=== PATIENT | female | born 1965 | race Caucasian/White ===

== ENCOUNTER → 2016-06-13 | Outpatient (CLI) | payer MEDICAID ==
--- NOTE | 2016-06-13 12:12 | XR ---
EXAMINATION TYPE: XR KUB DATE OF EXAM: 06/13/2016 11:04 AM HISTORY: Pain Comparison: 10/18/2015 Single KUB is submitted for interpretation. Findings: Right renal calculi: Stable small calculi upper pole right kidney totaling approximately 3 in number and measuring up to 3.8 mm. Right ureteral calculi: None Visualized. Left renal calculi: Lower pole calculi are again noted measuring up to 3 mm. Left ureteral calculi: None Visualized. Pelvic calcifications: Stable phleboliths Bowel gas pattern is unremarkable. No free air. No mass effects. IMPRESSION: 1. Stable nephrolithiasis suggested.
== END | disposition home or self-care (01) ==
LOC: RADXRMAIN 10:45
PROVIDERS: ATTEND Urology
DX: N20.0 Calculus of kidney (principal)
CPT/HCPCS: 36415; 74000; 82306

== ENCOUNTER 2016-07-02 14:20 | Emergency (ER) | payer MEDICAID ==
[2016-07-02] MEDS ORDERED: ONDANSETRON 4 MG/2 ML VIAL IVP STA (15:11)
[2016-07-02] MEDS ORDERED: HYDROmorphone 1 MG/ML 1 ML SYRINGE IVP STA (15:11)
[2016-07-02] MEDS ORDERED: KETOROLAC 30 MG/ML 1 ML VIAL IVP STA (15:11)
[2016-07-02] MEDS ORDERED: SODIUM CHLORIDE 0.9% 1,000 ML IV STA ×2 (15:11)
--- NOTE | 2016-07-02 15:12 | ED ---
General Adult HPI - General Chief complaint: Abdominal Pain Stated complaint: kidney Stones Time Seen by Provider: 07/02/16 14:47 Source: patient, RN notes reviewed, old records reviewed Mode of arrival: EMS Limitations: no limitations - History of Present Illness Initial comments: This is a 42-year-old female the ER for evaluation. The patient presents here for evaluation of bowel pain, right-sided flank pain. Right-sided flank pain radiating to groin. Mild dysuria. Mild blood in the urine. - Related Data Home Medications Medication Instructions Recorded Confirmed Sertraline [Zoloft] 100 mg PO HS 06/18/13 07/02/16 amLODIPine [Norvasc] 5 mg PO HS 06/18/13 07/02/16 Levothyroxine Sodium [Synthroid] 100 mcg PO HS 03/24/15 07/02/16 Potassium Citrate [Potassium 10 meq PO BID 07/02/16 07/02/16 Citrate ER] traMADol HCL [Ultram] 100 mg PO Q6HR PRN 07/02/16 07/02/16 traMADol HCl [Ultram] 50 mg PO Q6H PRN 07/02/16 07/02/16 Previous Rx's Medication Instructions Recorded Simvastatin [Zocor] 40 mg PO HS 90 Days 07/01/13 HYDROcodone/APAP 5-325MG [[place] 1 tab PO Q6HR PRN #30 tab 07/02/16 5-325] Ondansetron [Zofran] 4 mg PO Q8HR PRN #30 tab 07/02/16 Tamsulosin [Flomax] 0.4 mg PO DAILY #30 cap 07/02/16 diphenhydrAMINE [Benadryl] 50 mg PO BID #60 capsule 07/02/16 Allergies Allergy/AdvReac Type Severity Reaction Status Date / Time ciprofloxacin [From Cipro] AdvReac Nausea Verified 07/02/16 16:27 Review of Systems ROS Statement: Those systems with pertinent positive or pertinent negative responses have been documented in the HPI. ROS Other: All systems not noted in ROS Statement are negative. Past Medical History Past Medical History: Hyperlipidemia, Hypertension, Thyroid Disorder Additional Past Medical History / Comment(s): Recurrent Urolithiasis, Kidney Infection History of Any Multi-Drug Resistant Organisms: None Reported Past Surgical History: Uterine Ablation Additional Past Surgical History / Comment(s): Right ESWL in 2011, Left Percutaneous Nephrolithotomy in May 2013, Left Ureteroscopy with Holmium Laser Lithotripsy in June 2013, NOVOSURE Past Anesthesia/Blood Transfusion Reactions: No Reported Reaction Past Psychological History: Depression Additional Psychological History / Comment(s): ON RX Smoking Status: Never smoker Past Alcohol Use History: None Reported Past Drug Use History: None Reported - Past Family History Father Family Medical History: Coronary Artery Disease (CAD) Mother Additional Family Medical History / Comment(s): AORTIC ANEURYSM General Exam Limitations: no limitations General appearance: alert, in no apparent distress, anxious Head exam: Present: atraumatic, normocephalic, normal inspection Eye exam: Present: normal appearance, PERRL, EOMI. Absent: scleral icterus, conjunctival injection, periorbital swelling ENT exam: Present: normal exam, mucous membranes moist Neck exam: Present: normal inspection. Absent: tenderness, meningismus, lymphadenopathy Respiratory exam: Present: normal lung sounds bilaterally. Absent: respiratory distress, wheezes, rales, rhonchi, stridor Cardiovascular Exam: Present: regular rate, normal rhythm, normal heart sounds. Absent: systolic murmur, diastolic murmur, rubs, gallop, clicks GI/Abdominal exam: Present: soft, normal bowel sounds. Absent: distended, tenderness, guarding, rebound, rigid Extremities exam: Present: normal inspection, full ROM, normal capillary refill. Absent: tenderness, pedal edema, joint swelling, calf tenderness Back exam: Present: normal inspection Neurological exam: Present: alert, oriented X3, CN II-XII intact Psychiatric exam: Present: normal affect, normal mood Skin exam: Present: warm, dry, intact, normal color. Absent: rash Course Vital Signs 07/02/16 07/02/16 14:51 16:23 Temperature 97.4 F L Pulse Rate 61 59 L Respiratory 18 18 Rate Blood Pressure 170/100 154/104 O2 Sat by Pulse 95 99 Oximetry - Reevaluation(s) Reevaluation #1: 07/02/16 16:49 At this point patient has achieved pain control Medical Decision Making - Medical Decision Making 42 female ER for evaluation of dobby, severe sudden onset of bilateral abdominal pain rating to back, drizzly prior kidney stones, patient does have evidence of kidney stones and urine and and ultrasound, will spare CAT scan at this time, any function as well and patient will follow-up with urology with pain control - Lab Data Result diagrams: 07/02/16 15:07/02/16 15:09 Lab Results 07/02/16 07/02/16 07/02/16 Range/Units 15:09 15: 15: WBC 8.6 (3.8-10.6) k/uL RBC 4.28 (3.80-5.40) m/uL Hgb 12.9 (11.4-16.0) gm/dL Hct 37.8 (34.0-46.0) % MCV 88.4 (80.0-100.0) fL MCH 30.1 (25.0-35.0) pg MCHC 34.0 (31.0-37.0) g/dL RDW 13.3 (11.5-15.5) % Plt Count 194 (150-450) k/uL Neutrophils % 63 % Lymphocytes % 26 % Monocytes % 6 % Eosinophils % 3 % Basophils % 1 % Neutrophils # 5.4 (1.3-7.7) k/uL Lymphocytes # 2.2 (1.0-4.8) k/uL Monocytes # 0.5 (0-1.0) k/uL Eosinophils # 0.3 (0-0.7) k/uL Basophils # 0.1 (0-0.2) k/uL Sodium 138 (137-145) mmol/L Potassium 3.6 (3.5-5.1) mmol/L Chloride 100 (98-107) mmol/L Carbon Dioxide 28 (22-30) mmol/L Anion Gap 10 mmol/L BUN 14 (7-17) mg/dL Creatinine 0.83 (0.52-1.04) mg/dL Est GFR (MDRD) Af Amer >60 (>60 ml/min/1.73 sqM) Est GFR (MDRD) Non-Af >60 (>60 ml/min/1.73 sqM) Glucose 106 H (74-99) mg/dL Calcium 9.3 (8.4-10.2) mg/dL Total Bilirubin 0.6 (0.2-1.3) mg/dL AST 17 (14-36) U/L ALT 18 (9-52) U/L Alkaline Phosphatase 57 (38-126) U/L Total Creatine Kinase 53 (30-135) U/L CK-MB (CK-2) 0.8 (0.0-2.4) ng/mL CK-MB (CK-2) Rel Index 1.5 Total Protein 7.5 (6.3-8.2) g/dL Albumin 4.4 (3.5-5.0) g/dL Amylase 77 (30-110) U/L Lipase 77 (23-300) U/L Urine Color Urine Appearance (Clear) Urine pH (5.0-8.0) Ur Specific Collins (1.001-1.035) Urine Protein (Negative) Urine Glucose (UA) (Negative) Urine Ketones (Negative) Urine Blood (Negative) Urine Nitrite (Negative) Urine Bilirubin (Negative) Urine Urobilinogen (<2.0) mg/dL Ur Leukocyte Esterase (Negative) Urine RBC (0-5) /hpf Urine WBC (0-5) /hpf Ur Squamous Epith Cells (0-4) /hpf Urine Bacteria (None) /hpf Urine Mucus (None) /hpf 07/02/16 Range/Units 15:09 WBC (3.8-10.6) k/uL RBC (3.80-5.40) m/uL Hgb (11.4-16.0) gm/dL Hct (34.0-46.0) % MCV (80.0-100.0) fL MCH (25.0-35.0) pg MCHC (31.0-37.0) g/dL RDW (11.5-15.5) % Plt Count (150-450) k/uL Neutrophils % % Lymphocytes % % Monocytes % % Eosinophils % % Basophils % % Neutrophils # (1.3-7.7) k/uL Lymphocytes # (1.0-4.8) k/uL Monocytes # (0-1.0) k/uL Eosinophils # (0-0.7) k/uL Basophils # (0-0.2) k/uL Sodium (137-145) mmol/L Potassium (3.5-5.1) mmol/L Chloride (98-107) mmol/L Carbon Dioxide (22-30) mmol/L Anion Gap mmol/L BUN (7-17) mg/dL Creatinine (0.52-1.04) mg/dL Est GFR (MDRD) Af Amer (>60 ml/min/1.73 sqM) Est GFR (MDRD) Non-Af (>60 ml/min/1.73 sqM) Glucose (74-99) mg/dL Calcium (8.4-10.2) mg/dL Total Bilirubin (0.2-1.3) mg/dL AST (14-36) U/L ALT (9-52) U/L Alkaline Phosphatase (38-126) U/L Total Creatine Kinase (30-135) U/L CK-MB (CK-2) (0.0-2.4) ng/mL CK-MB (CK-2) Rel Index Total Protein (6.3-8.2) g/dL Albumin (3.5-5.0) g/dL Amylase (30-110) U/L Lipase (23-300) U/L Urine Color Yellow Urine Appearance Cloudy H (Clear) Urine pH 6.0 (5.0-8.0) Ur Specific Collins 1.007 (1.001-1.035) Urine Protein 1+ H (Negative) Urine Glucose (UA) Negative (Negative) Urine Ketones Negative (Negative) Urine Blood Moderate H (Negative) Urine Nitrite Negative (Negative) Urine Bilirubin Negative (Negative) Urine Urobilinogen <2.0 (<2.0) mg/dL Ur Leukocyte Esterase Large H (Negative) Urine RBC 14 H (0-5) /hpf Urine WBC 24 H (0-5) /hpf Ur Squamous Epith Cells 4 (0-4) /hpf Urine Bacteria Rare H (None) /hpf Urine Mucus Occasional H (None) /hpf - Radiology Data Radiology results: report reviewed (Ultrasound of kidneys renal and bladder is positive for mild hydro-bilateral), image reviewed Disposition Clinical Impression: Ureteral stone, Right kidney stone Disposition: HOME SELF-CARE Condition: Good Instructions: Kidney Stones (ED) Prescriptions: HYDROcodone/APAP 5-325MG [Ray[place] 5-325] 1 tab PO Q6HR PRN #30 tab PRN Reason: Pain Ondansetron [Zofran] 4 mg PO Q8HR PRN #30 tab PRN Reason: Nausea Tamsulosin [Flomax] 0.4 mg PO DAILY #30 cap diphenhydrAMINE [Benadryl] 50 mg PO BID #60 capsule Referrals: Alin Swift Jr, DO [Primary Care Provider] - 1-2 days
[2016-07-02 15:19] LABS: Basophils # (A) 0.1 k/uL (0-0.2); Basophils % (A) 1 %; CH 31.1; CHCM 35.4; Eosinophils # (A) 0.3 k/uL (0-0.7); Eosinophils % (A) 3 %; HCT 37.8 % (34.0-46.0); HDW 2.82; HGB 12.9 gm/dL (11.4-16.0); Luc # (Auto) 0.17; Luc % (Auto) 2; Lymphocytes # (A) 2.2 k/uL (1.0-4.8); Lymphocytes % (A) 26 %; MCH 30.1 pg (25.0-35.0); MCV 88.4 fL (80.0-100.0); Mean Platelet Volume 9.1; Monocytes # (A) 0.5 k/uL (0-1.0); Monocytes % (A) 6 %; Neutrophils # (A) 5.4 k/uL (1.3-7.7); Neutrophils % (A) 63 %; RBC 4.28 m/uL (3.80-5.40); RDW 13.3 % (11.5-15.5); WBC 8.6 k/uL (3.8-10.6); WBC (Perox) 8.03
[2016-07-02 15:26] LABS: Appearance,Urine Cloudy (Clear); Bacteria,Urine Rare /hpf; Bilirubin,Urine Negative (Negative); Glucose,Urine (UA) Negative (Negative); Ketones,Urine Negative (Negative); Leukocyte Esterase,Urine Large (Negative); Mucus,Urine Occasional /hpf; Nitrite,Urine Negative (Negative); Particle Count 3403; Protein,Urine 1+ (Negative); RBC,Urine 14 /hpf (0-5); Specific Gravity,Urine 1.007 (1.001-1.035); Squamous Epithelial Cell,Urine 4 /hpf (0-4); UA Billing (MACRO vs. MICRO) MICRO; Urobilinogen,Urine <2.0 mg/dL (<2.0); WBC,Urine 24 /hpf (0-5)
[2016-07-02 15:31] LABS: ALT 18 U/L (9-52); AST 17 U/L (14-36); Alkaline Phosphatase 57 U/L (38-126); Amylase 77 U/L (30-110); Anion Gap 10 mmol/L; Blood Urea Nitrogen 14 mg/dL (7-17); Calcium 9.3 mg/dL (8.4-10.2); Carbon Dioxide 28 mmol/L (22-30); Chloride 100 mmol/L (98-107); Glucose 106 mg/dL (74-99); Non-African American GFR(MDRD) >60 (>60 ml/min/1.73 sqM); Potassium 3.6 mmol/L (3.5-5.1); Sodium 138 mmol/L (137-145); Total Bilirubin 0.6 mg/dL (0.2-1.3); Total Protein 7.5 g/dL (6.3-8.2)
[2016-07-02 15:45] LABS: Creatine Kinase MB 0.8 ng/mL (0.0-2.4)
[2016-07-02] MEDS ORDERED: cefTRIAXone 2,000 MG in SODIUM CHLORIDE 0.9% 100 ML IVPB STA (15:53)
--- NOTE | 2016-07-02 16:24 | US ---
EXAMINATION TYPE: US kidneys/renal and bladder DATE OF EXAM: 07/02/2016 3:48 PM COMPARISON: CT abdomen and pelvis March 23, 2015. Prior renal ultrasound July 09, 2013 CLINICAL HISTORY: Pain, history of kidney stones. EXAM MEASUREMENTS: Right Kidney: 14.6 x 6. 7 x 5.9 cm Left Kidney: 13.3 x 6.5 x 6.1 cm Right Kidney: mild hydro, stone seen upper pole measuring 0.9 x 0.7 x 0.7 Left Kidney: mild hydro, cluster of possible stones seen in lower pole largest measuring 0.6 x 0.4 x 0.6cm Bladder: not distended, not well seen Fairly moderate right-sided pyelocaliectasis is seen on images saved. Similar moderate to borderline severe left-sided pyelocaliectasis is seen. Nonspecific 6 mm nonshadowing hyperechoic focus left kidn ey likely reflects renal calculus. IMPRESSION: Moderate bilateral hydronephrosis, consider obstructing bilateral ureter calculi in patie nt with history of kidney stones. Clinical correlation advised.
[2016-07-02] MEDS ORDERED: HYDROmorphone 2 MG/ML 1 ML SYRINGE IVP STA (16:30)
[2016-07-02 17:36] VITALS: BP 156/91; PULSE 69; RESP 16; TEMP 98.1
== END 2016-07-02 17:35 | disposition home or self-care (01) ==
LOC: EC 14:20
DX: N20.2 Calculus of kidney with calculus of ureter (principal); I10 Essential (primary) hypertension; E07.9 Disorder of thyroid, unspecified; F32.9 Major depressive disorder, single episode, unspecified; Z79.899 Other long term (current) drug therapy; Z88.1 Allergy status to other antibiotic agents; Z98.890 Other specified postprocedural states
CPT/HCPCS: 36415; 80053; 82150; 82550; 82553; 83690; 85025; 81001; 87086; 76770; 99285; 96365; 96375 ×3; 96376; 96361; J1170 ×2; J2405; J0696; J1885

== ENCOUNTER → 2016-11-05 | Outpatient (CLI) | payer MEDICAID ==
--- NOTE | 2016-11-06 08:26 | XR ---
EXAMINATION TYPE: XR KUB DATE OF EXAM: 11/05/2016 COMPARISON: 06/13/2016 HISTORY: Follow-up stones TECHNIQUE: One view abdominal series FINDINGS: The osseous structures are intact. The bowel gas pattern is nonspecific. Within the pelvis the calcifications appear to be stable. Left kidney: There is a 3 mm mid pole left kidney calcification which is stable. Punctate 1 mm lower pole calcification not excluded. Right kidney: Obscured by overlying bowel gas. IMPRESSION: 1. Nonspecific abdomen. 2. Stable left nephrolithiasis. 3. Limited assessment of the right kidney.
== END ==
LOC: RADXRMAIN 16:25
PROVIDERS: ATTEND Urology
DX: N20.0 Calculus of kidney (principal)
CPT/HCPCS: 74000

== ENCOUNTER → 2017-04-24 | Outpatient (CLI) | payer MEDICAID ==
--- NOTE | 2017-04-24 16:48 | XR ---
Abdomen HISTORY: Kidney stones, N 20 Frontal view of the abdomen submitted and correlated to prior exam 11/05/2016, CT abdomen pelvis 12/04 Multiple vascular calcifications are noted within the pelvis as on prior, there is been interval pass age of some calcifications, difficult to exclude distal ureteral calculus on the left and possibly ri ght. Bowel gas may obscure detail in the abdomen, there is no evident pneumoperitoneum or bowel obstr uction. Spinal curvature is present. Lung bases are not well visualized. IMPRESSION: Nonobstructive bowel gas pattern, difficult to exclude distal ureteral calculus, follow-u p as indicated.
== END | disposition home or self-care (01) ==
LOC: RADXRMAIN 14:57
PROVIDERS: ATTEND Urology
DX: N20.0 Calculus of kidney (principal)
CPT/HCPCS: 74018

== ENCOUNTER → 2017-04-24 | Outpatient (CLI) | payer MEDICAID | END | disposition home or self-care (01) | LOC: LABWHC1 15:21 | PROVIDERS: ATTEND Family Medicine | DX: N23 Unspecified renal colic (principal) | CPT/HCPCS: 36415; 82330; 83970 ==

== ENCOUNTER → 2017-04-26 | Outpatient (CLI) | payer MEDICAID ==
--- NOTE | 2017-04-26 08:23 | CT ---
EXAMINATION TYPE: CT abdomen pelvis wo con DATE OF EXAM: 04/26/2017 COMPARISON: 12/04/2016 HISTORY: Renal stone CT DLP: 933 mGycm Automated exposure control for dose reduction was used. TECHNIQUE: Helical acquisition of images was performed from the lung bases through the pelvis. FINDINGS: LUNG BASES: Tiny pericardial effusion. Lungs are clear. LIVER/GB: No significant abnormality is appreciated. PANCREAS: No significant abnormality is seen. SPLEEN: No significant abnormality is seen. ADRENALS: No significant abnormality is seen. KIDNEYS: There are approximately 9 calcifications within the right kidney all measuring less than 5 m m. There is a distal right ureteral obstruction resulting in mild right hydronephrosis with 3 calculi noted proximal to the UVJ with the largest measuring 3 mm. There is no evidence of hydronephrosis on the left there are 3 calcifications all measuring less than 5 mm. ADENOPATHY: None visualized URINARY BLADDER: No significant abnormality is seen. OSSEOUS STRUCTURES: No significant abnormality is seen. BOWEL: Bowel limited by extensive retained fecal debris with nonspecific gas pattern and no evidence of obstruction. OTHER: Aorta of normal caliber. IMPRESSION: BILATERAL NEPHROLITHIASIS WITH MILD RIGHT-SIDED HYDRONEPHROSIS SECONDARY TO 3 DISTAL RIGHT URETERAL C ALCULI RESULTING IN OBSTRUCTION, ALL MEASURING 3 MM OR LESS.
== END | disposition home or self-care (01) ==
LOC: RADCTMAIN 07:34
DX: N13.2 Hydronephrosis with renal and ureteral calculous obstruction (principal)
CPT/HCPCS: 74176

== ENCOUNTER → 2017-09-18 | Outpatient (CLI) | payer MEDICAID ==
--- NOTE | 2017-09-18 12:36 | XR ---
EXAMINATION TYPE: XR chest 2V DATE OF EXAM: 09/18/2017 COMPARISON: 07/07/2013 HISTORY: Tuberculosis screening TECHNIQUE: Frontal and lateral views of the chest are obtained. FINDINGS: There is no focal air space opacity, pleural effusion, or pneumothorax seen. The cardiac silhouette size is within normal limits. The osseous structures are intact. No cavitary mass is adelaida ntified. No focal air space disease is seen. Very mild degenerative changes of the spine are noted. IMPRESSION: No acute cardiopulmonary process. No radiographic sequela of tuberculosis.
== END | disposition home or self-care (01) ==
LOC: RADXRMAIN 11:17
PROVIDERS: ATTEND Family Medicine
DX: Z20.1 Contact with and (suspected) exposure to tuberculosis (principal)
CPT/HCPCS: 71046

== ENCOUNTER → 2018-04-28 | Outpatient (CLI) | payer MEDICAID ==
--- NOTE | 2018-04-28 12:14 | CT ---
EXAMINATION TYPE: CT abdomen pelvis wo con DATE OF EXAM: 04/28/2018 COMPARISON: 04/26/2017 HISTORY: right sided flank pain with history of stones CT DLP: 817 mGycm Examination of the solid and hollow viscera is limited given the lack of contrast. FINDINGS: LUNG BASES: No evidence for nodule. No evidence for infiltrate. LIVER/GB: The gallbladder is unremarkable. No space-occupying hepatic lesion. PANCREAS: No pancreatic mass identified. No inflammatory process seen. SPLEEN: No evidence for splenomegaly. No intrasplenic lesions seen. ADRENALS: No adrenal nodules identified. No evidence for thickening. KIDNEYS: No evidence for renal mass. Bilateral nonobstructing nephrolithiasis. No hydronephrosis. BOWEL: Appendix has a normal appearance. No evidence of bowel obstruction. No inflammatory process. Lymph nodes: No evidence for adenopathy greater than 1 cm. Abdominal aorta: Atheromatous changes seen. No evidence for aneurysm. Genital organs: No significant abnormality. Other: No significant abnormality. IMPRESSION: Bilateral nonobstructing nephrolithiasis.
== END ==
LOC: RADCTMAIN 11:25
PROVIDERS: ATTEND Family Medicine
DX: N20.0 Calculus of kidney (principal); Z87.442 Personal history of urinary calculi
CPT/HCPCS: 74176

== ENCOUNTER 2019-12-06 09:14 | Emergency (ER) | payer OTHER, MEDICAID ==
[2019-12-06 09:24] VITALS: RESP 18
[2019-12-06] MEDS ORDERED: KETOROLAC 15 MG/ML 1 ML VIAL IM STA (09:34)
[2019-12-06] MEDS ORDERED: LIDOCAINE 5% PATCH TOPICAL STA (09:34)
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
[2019-12-06 11:23] VITALS: BP 125/84; PULSE 67; TEMP 98.1
== END 2019-12-06 11:12 | disposition home or self-care (01) ==
LOC: EC 09:14
DX: S16.1XXA Strain of muscle, fascia and tendon at neck level, initial encounter (principal); M54.5 Low back pain; I10 Essential (primary) hypertension; E07.9 Disorder of thyroid, unspecified; F32.9 Major depressive disorder, single episode, unspecified; Z79.899 Other long term (current) drug therapy; Z79.890 Hormone replacement therapy; Z88.1 Allergy status to other antibiotic agents; V43.52XA Car driver injured in collision with other type car in traffic accident, initial encounter; Y92.410 Unspecified street and highway as the place of occurrence of the external cause
CPT/HCPCS: 72100; 72125; 70450; 99284; 96372; J1885

== ENCOUNTER → 2020-01-13 | Outpatient (CLI) | payer MEDICAID ==
[2020-01-13 10:37] VITALS: BP 122/82; PULSE 58; RESP 18; TEMP 97.8
--- NOTE | 2020-01-13 11:17 | P.HPOB ---
History of Present Illness H&P Date: 01/13/20 Chief Complaint: The patient is here for her routine gynecologic exam and ma mmogram. This is a 54-year-old with an LMP of early 2018. The patient is without gynecologic complaints and denies hot flashes. She denies any postmenopausal bleeding. Review of Systems She has lost about 4 pounds over the past 4 years. She denies respiratory, cardiac, or GI problems. Past Medical History Past Medical History: Hyperlipidemia, Hypertension, Thyroid Disorder Additional Past Medical History / Comment(s): Recurrent Urolithiasis, Kidney Infection. 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 History of Any Multi-Drug Resistant Organisms: None Reported Past Surgical History: Uterine Ablation Additional Past Surgical History / Comment(s): Right ESWL in 2011, Left Percutaneous Nephrolithotomy in May 2013, Left Ureteroscopy with Holmium Laser Lithotripsy in June 2013, endometrial ablation 2007. Colonoscopy. Past Anesthesia/Blood Transfusion Reactions: No Reported Reaction Past Psychological History: Anxiety, Depression Additional Psychological History / Comment(s): ON RX Smoking Status: Never smoker Past Alcohol Use History: Rare (6 per year) Past Drug Use History: None Reported Additional History: She has been since 1994 and works in [employer] at [employer]. She has 1 grandchild. - Past Family History Father Family Medical History: Coronary Artery Disease (CAD) Mother Family Medical History: Cancer Additional Family Medical History / Comment(s): AORTIC ANEURYSM. Breast cancer. Brother(s) Family Medical History: Cancer Additional Family Medical History / Comment(s): Multiple myeloma. Medications and Allergies Home Medications Medication Instructions Recorded Confirmed Type Sertraline [Zoloft] 100 mg PO HS 06/18/13 01/13/20 History amLODIPine [Norvasc] 5 mg PO HS 06/18/13 01/13/20 History Simvastatin [Zocor] 40 mg PO HS 90 Days tab 07/01/13 01/13/20 Rx Levothyroxine Sodium [Synthroid] 100 mcg PO HS 03/24/15 01/13/20 History Ondansetron [Zofran] 4 mg PO Q8HR PRN #30 tab 07/02/16 01/13/20 Rx Potassium Citrate [Potassium 10 meq PO BID 07/02/16 01/13/20 History Citrate ER] Allergies Allergy/AdvReac Type Severity Reaction Status Date / Time ciprofloxacin [From Cipro] AdvReac Nausea Verified 01/13/20 10:30 Exam Vital Signs Temp Pulse Resp BP Pulse Ox 01/13/20 10:33 97.8 F 58 L 18 122/82 99 Intake and Output 01/12/20 01/13/20 01/13/20 22:59 06:59 14:59 Other: Weight 83.461 kg Height 5 feet 5 inches, weight 184 pounds, BMI 30.6. This is a well-developed well-nourished white female who is alert and oriented times 3 in no acute distress. HEENT: Within normal limits. NECK: Supple without mass or thyromegaly. CHEST AND LUNGS: Clear to auscultation. HEART: Regular rate and rhythm. BREASTS: Are without mass or discharge. AXILLARY EXAM: Negative for adenopathy. BACK: Negative for CVA tenderness. ABDOMEN: Soft, nontender, without palpable masses. PELVIC EXAM: Normal external genitalia with minimal atrophy. Cervix and vagina appear normal with mild atrophy. There is no unusual discharge. There is no evidence of prolapse. The uterus is midposition, nongravid size and nontender. There are no palpable adnexal masses or tenderness. RECTAL EXAM: Rectovaginal exam is negative for mass or tenderness and is negative for occult blood. EXTREMITIES: Nontender. IMPRESSION: 1. 54-year-old menopausal female with normal gynecologic exam. PLAN: 1. Pap smear with cotest was obtained. 2. Self breast awareness was discussed with the patient. 3. Screening mammogram will be done today. 4. Osteoporosis prevention was discussed. I have stressed the importance of adequate calcium, vitamin D and regular exercise. Recommended amounts of calcium and vitamin D were also discussed. 5. She was instructed to call if she has any vaginal bleeding or periods since she now has gone more than 12 months without menstrual periods. 6. She states she had a colonoscopy done more than 5 years ago and she believes she had polyps removed. I have recommended that she look into doing another colonoscopy and she will do this through her PCP. 7. She was advised to return in one year for her annual well woman exam.
--- NOTE | 2020-01-13 14:04 | MM ---
Reason for exam: screening (asymptomatic). Last mammogram was performed 5 years ago. History: Patient is postmenopausal. Family history of premenopausal breast cancer in mother. Physical Findings: A clinical breast exam by your physician is recommended on an annual basis and results should be correlated with mammographic findings. MG Screening Mammo w CAD Bilateral CC and MLO view(s) were taken. Prior study comparison: January 24, 2015, bilateral MG screening mammo w CAD. January 22, 2014, bilateral MG screening mammo w CAD. There are scattered fibroglandular densities. There are benign appearing round calcifications bilaterally. There is no discrete abnormality. ASSESSMENT: Benign, BI-RAD 2 RECOMMENDATION: Routine screening mammogram of both breasts in 1 year.
== END | disposition home or self-care (01) ==
LOC: WWCWWP 10:14
PROVIDERS: ATTEND Obstetrics & Gynecology
DX: Z12.31 Encounter for screening mammogram for malignant neoplasm of breast (principal)
CPT/HCPCS: 77067

== ENCOUNTER 2020-02-19 10:10 | Emergency (ER) | payer MEDICAID ==
[2020-02-19 10:17] VITALS: RESP 18; TEMP 98.8
[2020-02-19] MEDS: SODIUM CHLORIDE 0.9% 1,000 ML IV STA (10:42)
[2020-02-19] MEDS: SODIUM CHLORIDE 0.9% 500 ML 500 ML IV STA (10:42)
[2020-02-19 10:50] LABS: Basophils # (A) 0.1 k/uL (0-0.2); Basophils % (A) 1 %; Eosinophils # (A) 0.2 k/uL (0-0.7); Eosinophils % (A) 3 %; HCT 37.1 % (34.0-46.0); HGB 13.3 gm/dL (11.4-16.0); Lymphocytes # (A) 1.7 k/uL (1.0-4.8); Lymphocytes % (A) 30 %; MCHC 35.8 g/dL (31.0-37.0); MCV 86.6 fL (80.0-100.0); Mean Platelet Volume 9.4; Monocytes # (A) 0.3 k/uL (0-1.0); Monocytes % (A) 5 %; Neutrophils # (A) 3.3 k/uL (1.3-7.7); Neutrophils % (A) 59 %; Platelet Count 184 k/uL (150-450); RBC 4.28 m/uL (3.80-5.40); RDW 13.6 % (11.5-15.5); WBC 5.7 k/uL (3.8-10.6)
[2020-02-19 11:00] LABS: ALT 26 U/L (4-34); AST 32 U/L (14-36); African American GFR (CKD) >90 (>60 ml/min/1.73 sqM); Albumin 4.5 g/dL (3.5-5.0); Alkaline Phosphatase 69 U/L (38-126); Anion Gap 5 mmol/L; Blood Urea Nitrogen 15 mg/dL (7-17); Calcium 9.5 mg/dL (8.4-10.2); Carbon Dioxide 31 mmol/L (22-30); Chloride 102 mmol/L (98-107); Creatine Kinase 95 U/L (30-135); Glucose 119 mg/dL (74-99); Lipase 110 U/L (23-300); Non-African American GFR(CKD) >90 (>60 ml/min/1.73 sqM); Potassium 3.6 mmol/L (3.5-5.1); Sodium 138 mmol/L (137-145); Total Bilirubin 0.5 mg/dL (0.2-1.3); Total Protein 7.4 g/dL (6.3-8.2)
--- NOTE | 2020-02-19 11:01 | XR ---
EXAMINATION TYPE: XR chest 2V DATE OF EXAM: 02/19/2020 COMPARISON: Chest x-ray September 18, 2017. HISTORY: History of kidney stones with pain. TECHNIQUE: Frontal and lateral views of the chest are obtained. FINDINGS: There is no new suspicious focal air space opacity, pleural effusion, or pneumothorax seen . The cardiac silhouette size remains within normal limits. Multilevel spurring in the mid to lower thoracic spine is redemonstrated. IMPRESSION: No acute cardiopulmonary process. No significant change from prior.
[2020-02-19 11:02] LABS: Appearance,Urine Clear (Clear); Bilirubin,Urine Negative (Negative); Blood,Urine Negative (Negative); Color,Urine Yellow; Glucose,Urine (UA) Negative (Negative); Hyaline Casts,Urine 1 /lpf (0-2); Ketones,Urine Negative (Negative); Leukocyte Esterase,Urine Large (Negative); Mucus,Urine Rare /hpf; Nitrite,Urine Negative (Negative); PH, Urine 6.5 (5.0-8.0); Protein,Urine Negative (Negative); RBC,Urine 4 /hpf (0-5); Specific Gravity,Urine 1.018 (1.001-1.035); Squamous Epithelial Cell,Urine <1 /hpf (0-4); Urobilinogen,Urine <2.0 mg/dL (<2.0); WBC,Urine 10 /hpf (0-5)
--- NOTE | 2020-02-19 11:02 | XR ---
EXAMINATION TYPE: XR KUB DATE OF EXAM: 02/19/2020 10:55 AM CLINICAL HISTORY: History of kidney stones with lower abdominal pain in TECHNIQUE: Two Upright KUB images of the abdomen are obtained. COMPARISON: CT abdomen and pelvis April 28, 2018. FINDINGS: Scattered gas is seen in non-distended stomach and small bowel loops. Gas and fecal materia l is seen in non-distended colon. Levoconvex scoliosis centered at L2-L3 level redemonstrated. Tiny r enal calculi on CT not clearly seen on plain films. Lung bases are clear. No pneumoperitoneum. Scatte red pelvic phleboliths redemonstrated. IMPRESSION: As above.
[2020-02-19] MEDS: HYDROmorphone 0.5 MG/0.5 ML SYRINGE IVP STA (11:21)
[2020-02-19] MEDS: ONDANSETRON 4 MG/2 ML VIAL IVP STA (11:21)
--- NOTE | 2020-02-19 11:21 | ED ---
General Adult HPI - General Source: patient, RN notes reviewed Mode of arrival: ambulatory Limitations: no limitations <Tonio Becker - Last Filed: 02/19/20 12:11> <Stephany Mederos - Last Filed: 02/20/20 12:24> - General Chief complaint: Urogenital Stated complaint: bilateral back kidney pain Time Seen by Provider: 02/19/20 10:17 - History of Present Illness Initial comments: 54-year-old female presents emergency Department with chief complaint of low back pain, flank pain. Patient states this has been on for several weeks states that it's feels like her typical kidney stones. Patient states that the pain is progressively getting worse states that she's felt nauseated, no active vomiting currently no fevers or chills. She does have some urinary symptoms. Patient's had multiple procedures and seen urology in the past for kidney stones. Patient states she felt very anxious is has some shortness of breath denies any significant long history of cardiac disease denies any current complaints of chest pain or upper back pain. (Tonio Becker) - Related Data Home Medications Medication Instructions Recorded Confirmed Sertraline [Zoloft] 100 mg PO HS 06/18/13 02/19/20 amLODIPine [Norvasc] 5 mg PO HS 06/18/13 02/19/20 Levothyroxine Sodium [Synthroid] 100 mcg PO HS 03/24/15 02/19/20 Potassium Citrate [Potassium 10 meq PO HS 07/02/16 02/19/20 Citrate ER] ALPRAZolam [Xanax] 0.25 mg PO HS PRN 02/19/20 02/19/20 Indapamide [Lozol] 2.5 mg PO HS 02/19/20 02/19/20 Zolpidem [Ambien] 10 mg PO HS PRN 02/19/20 02/19/20 Previous Rx's Medication Instructions Recorded Simvastatin [Zocor] 40 mg PO HS 90 Days tab 07/01/13 Ketorolac [Toradol] 10 mg PO Q8HR #15 tab 02/19/20 Ondansetron Odt [Zofran Odt] 4 mg PO Q8HR PRN #10 tab 02/19/20 Sulfamethox-Tmp 800-160Mg [Bactrim 1 each PO Q12HR #14 tab 02/19/20 Ds] Allergies Allergy/AdvReac Type Severity Reaction Status Date / Time ciprofloxacin [From Cipro] AdvReac Nausea Verified 02/19/20 11:05 Review of Systems ROS Other: All systems not noted in ROS Statement are negative. <Tonio Becker - Last Filed: 02/19/20 12:11> ROS Other: All systems not noted in ROS Statement are negative. <Stephany Mederos - Last Filed: 02/20/20 12:24> ROS Statement: Those systems with pertinent positive or pertinent negative responses have been documented in the HPI. Past Medical History Past Medical History: Hyperlipidemia, Hypertension, Thyroid Disorder Additional Past Medical History / Comment(s): Recurrent Urolithiasis, Kidney Infection. 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 History of Any Multi-Drug Resistant Organisms: None Reported Past Surgical History: Uterine Ablation Additional Past Surgical History / Comment(s): Right ESWL in 2011, Left Percutaneous Nephrolithotomy in May 2013, Left Ureteroscopy with Holmium Laser Lithotripsy in June 2013, endometrial ablation 2007. Colonoscopy. Past Anesthesia/Blood Transfusion Reactions: No Reported Reaction Past Psychological History: Anxiety, Depression Smoking Status: Never smoker Past Alcohol Use History: Rare Past Drug Use History: None Reported - Past Family History Father Family Medical History: Coronary Artery Disease (CAD) Mother Family Medical History: Cancer Additional Family Medical History / Comment(s): AORTIC ANEURYSM. Breast cancer. Brother(s) Family Medical History: Cancer Additional Family Medical History / Comment(s): Multiple myeloma. <ArmandoTonio thao - Last Filed: 02/19/20 12:11> General Exam Limitations: no limitations General appearance: alert, in no apparent distress Head exam: Present: atraumatic, normocephalic, normal inspection Eye exam: Present: normal appearance, PERRL, EOMI. Absent: scleral icterus, conjunctival injection, periorbital swelling ENT exam: Present: normal exam, normal oropharynx, mucous membranes moist Neck exam: Present: normal inspection, full ROM. Absent: tenderness, meningismus, lymphadenopathy Respiratory exam: Present: normal lung sounds bilaterally. Absent: respiratory distress, wheezes, rales, rhonchi, stridor Cardiovascular Exam: Present: regular rate, normal rhythm, normal heart sounds. Absent: systolic murmur, diastolic murmur, rubs, gallop, clicks GI/Abdominal exam: Present: soft, normal bowel sounds. Absent: distended, tenderness, guarding, rebound, rigid Back exam: Present: paraspinal tenderness. Absent: CVA tenderness (R), CVA tenderness (L) Neurological exam: Present: alert, oriented X3 Skin exam: Present: warm, dry, intact, normal color. Absent: rash <Tonio Becker - Last Filed: 02/19/20 12:11> Course Vital Signs 02/19/20 02/19/20 10:14 12:13 Temperature 98.8 F Pulse Rate 69 68 Respiratory 18 18 Rate Blood Pressure 144/75 133/80 O2 Sat by Pulse 98 100 Oximetry EKG Findings - EKG Comments: EKG Findings:: EKG for a 10:37 normal sinus rhythm rate of 65 IL 152 QRS 88 QT/QTC 466/484 <Tonio Becker - Last Filed: 02/19/20 12:11> Medical Decision Making - Lab Data Result diagrams: 02/19/20 10:37 02/19/20 10:37 <Tonio Becker - Last Filed: 02/19/20 12:11> - Lab Data Result diagrams: 02/19/20 10:37 02/19/20 10:37 <Stephany Mederos - Last Filed: 02/20/20 12:24> - Medical Decision Making 54-year-old female presented for low back pain, flank pain. Patient CT does show multiple kidney stones. There is no stone within the ureter. Patient's pain may related to muscle skeletal as is worse with movement and palpation. Patient does have urinary symptoms and no to 10 white cells in her urine. Patient was started on antibiotics concerning for infection urine culture was ordered. Patient will follow-up with her PCP, urology's patient we discharged in stable condition. (Tonio Becker) I was available for consultation in the emergency department. The history and physical exam were done by the midlevel provider. I was consulted for this patients care. I reviewed the case with the midlevel provider and based on their presentation of the patient, I agree with the assessment, medical decision making and plan of care as documented. Chart was dictated using [employer] dictation software. Attempts were made to correct any dictation errors however some typographical errors may persist. Patient was seen during a national state of emergency due to the Covid-19 pandemic. (Stephany Mederos) - Lab Data Lab Results 02/19/20 02/19/20 02/19/20 Range/Units 10:37 10:37 10:37 WBC 5.7 (3.8-10.6) k/uL RBC 4.28 (3.80-5.40) m/uL Hgb 13.3 (11.4-16.0) gm/dL Hct 37.1 (34.0-46.0) % MCV 86.6 (80.0-100.0) fL MCH 31.0 (25.0-35.0) pg MCHC 35.8 (31.0-37.0) g/dL RDW 13.6 (11.5-15.5) % Plt Count 184 (150-450) k/uL MPV 9.4 Neutrophils % 59 % Lymphocytes % 30 % Monocytes % 5 % Eosinophils % 3 % Basophils % 1 % Neutrophils # 3.3 (1.3-7.7) k/uL Lymphocytes # 1.7 (1.0-4.8) k/uL Monocytes # 0.3 (0-1.0) k/uL Eosinophils # 0.2 (0-0.7) k/uL Basophils # 0.1 (0-0.2) k/uL D-Dimer (<0.60) mg/L FEU Sodium 138 (137-145) mmol/L Potassium 3.6 (3.5-5.1) mmol/L Chloride 102 (98-107) mmol/L Carbon Dioxide 31 H (22-30) mmol/L Anion Gap 5 mmol/L BUN 15 (7-17) mg/dL Creatinine 0.60 (0.52-1.04) mg/dL Est GFR (CKD-EPI)AfAm >90 (>60 ml/min/1.73 sqM) Est GFR (CKD-EPI)NonAf >90 (>60 ml/min/1.73 sqM) Glucose 119 H (74-99) mg/dL Plasma Lactic Acid Ran (0.7-2.0) mmol/L Calcium 9.5 (8.4-10.2) mg/dL Total Bilirubin 0.5 (0.2-1.3) mg/dL AST 32 (14-36) U/L ALT 26 (4-34) U/L Alkaline Phosphatase 69 (38-126) U/L Creatine Kinase 95 (30-135) U/L Troponin I (0.000-0.034) ng/mL Total Protein 7.4 (6.3-8.2) g/dL Albumin 4.5 (3.5-5.0) g/dL Lipase 110 (23-300) U/L Urine Color Yellow Urine Appearance Clear (Clear) Urine pH 6.5 (5.0-8.0) Ur Specific Chrisman 1.018 (1.001-1.035) Urine Protein Negative (Negative) Urine Glucose (UA) Negative (Negative) Urine Ketones Negative (Negative) Urine Blood Negative (Negative) Urine Nitrite Negative (Negative) Urine Bilirubin Negative (Negative) Urine Urobilinogen <2.0 (<2.0) mg/dL Ur Leukocyte Esterase Large H (Negative) Urine RBC 4 (0-5) /hpf Urine WBC 10 H (0-5) /hpf Ur Squamous Epith Cells <1 (0-4) /hpf Hyaline Casts 1 (0-2) /lpf Urine Mucus Rare H (None) /hpf 02/19/20 02/19/20 02/19/20 Range/Units 10:37 10:37 10:37 WBC (3.8-10.6) k/uL RBC (3.80-5.40) m/uL Hgb (11.4-16.0) gm/dL Hct (34.0-46.0) % MCV (80.0-100.0) fL MCH (25.0-35.0) pg MCHC (31.0-37.0) g/dL RDW (11.5-15.5) % Plt Count (150-450) k/uL MPV Neutrophils % % Lymphocytes % % Monocytes % % Eosinophils % % Basophils % % Neutrophils # (1.3-7.7) k/uL Lymphocytes # (1.0-4.8) k/uL Monocytes # (0-1.0) k/uL Eosinophils # (0-0.7) k/uL Basophils # (0-0.2) k/uL D-Dimer 0.23 (<0.60) mg/L FEU Sodium (137-145) mmol/L Potassium (3.5-5.1) mmol/L Chloride (98-107) mmol/L Carbon Dioxide (22-30) mmol/L Anion Gap mmol/L BUN (7-17) mg/dL Creatinine (0.52-1.04) mg/dL Est GFR (CKD-EPI)AfAm (>60 ml/min/1.73 sqM) Est GFR (CKD-EPI)NonAf (>60 ml/min/1.73 sqM) Glucose (74-99) mg/dL Plasma Lactic Acid Ran 1.9 (0.7-2.0) mmol/L Calcium (8.4-10.2) mg/dL Total Bilirubin (0.2-1.3) mg/dL AST (14-36) U/L ALT (4-34) U/L Alkaline Phosphatase (38-126) U/L Creatine Kinase (30-135) U/L Troponin I <0.012 (0.000-0.034) ng/mL Total Protein (6.3-8.2) g/dL Albumin (3.5-5.0) g/dL Lipase (23-300) U/L Urine Color Urine Appearance (Clear) Urine pH (5.0-8.0) Ur Specific Chrisman (1.001-1.035) Urine Protein (Negative) Urine Glucose (UA) (Negative) Urine Ketones (Negative) Urine Blood (Negative) Urine Nitrite (Negative) Urine Bilirubin (Negative) Urine Urobilinogen (<2.0) mg/dL Ur Leukocyte Esterase (Negative) Urine RBC (0-5) /hpf Urine WBC (0-5) /hpf Ur Squamous Epith Cells (0-4) /hpf Hyaline Casts (0-2) /lpf Urine Mucus (None) /hpf Disposition Is patient prescribed a controlled substance at d/c from ED?: No Time of Disposition: 12:13 <Tonio Becker - Last Filed: 02/19/20 12:11> <Stephany Mederos - Last Filed: 02/20/20 12:24> Clinical Impression: UTI (urinary tract infection), Multiple kidney stones, Back pain Disposition: HOME SELF-CARE Condition: Stable Instructions (If sedation given, give patient instructions): Urinary Tract Infection in Women (ED), Back Pain (ED) Additional Instructions: Please return to the Emergency Department if symptoms worsen or any other concerns. Prescriptions: Sulfamethox-Tmp 800-160Mg [Bactrim Ds] 1 each PO Q12HR #14 tab Ketorolac [Toradol] 10 mg PO Q8HR #15 tab Ondansetron Odt [Zofran Odt] 4 mg PO Q8HR PRN #10 tab PRN Reason: Nausea Referrals: Alin Swift Jr, DO [Primary Care Provider] - 1-2 days Jonathan Turpin MD [STAFF PHYSICIAN] - 1-2 days
--- NOTE | 2020-02-19 11:57 | CT ---
EXAMINATION TYPE: CT abdomen pelvis wo con DATE OF EXAM: 02/19/2020 HISTORY: Bilateral flank pain, history of renal stones, Negative gross hematuria CT DLP: 676.1 mGycm. Automated Exposure Control for Dose Reduction was Utilized. TECHNIQUE: CT scan of the abdomen and pelvis is performed without oral or IV contrast. COMPARISON: CT abdomen and pelvis April 28, 2018 FINDINGS: Within the limitations of a non-contrast study, the following observations are made. LUNG BASES: Small dependent calcified gallstone axial image 31 seen on current study. Single benign-a ppearing calcification right lateral margin liver axial image 20 redemonstrated. LIVER/GB: No significant abnormality is appreciated. PANCREAS: No significant abnormality is seen. SPLEEN: No significant abnormality is seen. ADRENALS: No significant abnormality is seen. KIDNEYS: There are roughly 3-5 scattered left-sided renal calculi measuring up to 4 mm in size axial image 41 with interval progression from prior study. There are approximately 10 right-sided renal koffi culi on current study also increased in size and number measuring up to 5 mm in size. No hydronephro sis or obstructing calculi seen currently. Scattered bilateral pelvic phlebolith redemonstrated. BOWEL: Normal appearing appendix. GENITAL ORGANS: Anteverted uterus. LYMPH NODES: No greater than 1cm abdominal or pelvic lymph nodes are appreciated. OSSEOUS STRUCTURES: Underlying levoconvex scoliosis redemonstrated. Multilevel spurring in the spine. Facet arthropathy lower lumbar levels. [id number]-[id number] axial joint space loss both hips. OTHER: No significant additional abnormality is seen. IMPRESSION: Interval progression in size and number of nonobstructing renal calculi bilaterally. No h ydronephrosis or obstructing ureter calculi noted. No acute findings identified currently.
[2020-02-19 12:14] VITALS: BP 133/80; PULSE 68
[2020-02-19] MEDS: ACET/COD 300 MG/30 MG STARTER PACK 6 TAB BTL PO STA (12:14)
== END 2020-02-19 12:16 | disposition home or self-care (01) ==
LOC: EC 10:10
DX: N20.0 Calculus of kidney (principal); N39.0 Urinary tract infection, site not specified; F41.9 Anxiety disorder, unspecified; F32.9 Major depressive disorder, single episode, unspecified; E78.5 Hyperlipidemia, unspecified; I10 Essential (primary) hypertension; E03.9 Hypothyroidism, unspecified; Z79.890 Hormone replacement therapy; Z79.899 Other long term (current) drug therapy; Z88.1 Allergy status to other antibiotic agents
CPT/HCPCS: 99285; 96374; 96375; 96361 ×2; 36415; 93005; 85379; 80053; 82550; 83605; 83690; 84484; 85025; 81001; 71046; 74018; 74176; J2405; J1170

== ENCOUNTER → 2020-11-01 | Outpatient (CLI) | payer MEDICAID ==
--- NOTE | 2020-11-01 16:21 | XR ---
EXAMINATION TYPE: XR KUB DATE OF EXAM: 11/01/2020 COMPARISON: NONE HISTORY: Pain TECHNIQUE: One view abdominal series FINDINGS: The osseous structures are intact. The bowel gas pattern is nonspecific. Calcifications in the pelvi s are likely vascular. Hypertrophic changes in the acetabulum can be associated with femoral acetabul ar impingement. IMPRESSION: 1. Nonspecific abdomen.
== END | disposition home or self-care (01) ==
LOC: RADXRMAIN 15:28
PROVIDERS: ATTEND Family Medicine
DX: R10.9 Unspecified abdominal pain (principal)
CPT/HCPCS: 74018

== ENCOUNTER 2021-08-28 07:52 | Emergency (ER) | payer MEDICAID ==
[2021-08-28 07:56] VITALS: RESP 18; TEMP 97.8
[2021-08-28] MEDS ORDERED: ONDANSETRON 4 MG/2 ML VIAL IVP STA (08:07)
[2021-08-28] MEDS ORDERED: SODIUM CHLORIDE 0.9% 500 ML 500 ML IV STA (08:07)
[2021-08-28] MEDS ORDERED: SODIUM CHLORIDE 0.9% 1,000 ML IV STA (08:07)
[2021-08-28] MEDS ORDERED: HYDROmorphone 0.5 MG/0.5 ML SYRINGE IVP STA (08:07)
[2021-08-28] MEDS ORDERED: KETOROLAC 15 MG/ML 1 ML VIAL IVP STA (08:07)
[2021-08-28 08:38] LABS: Basophils # (A) 0.1 k/uL (0-0.2); Basophils % (A) 1 %; Eosinophils # (A) 0.1 k/uL (0-0.7); Eosinophils % (A) 2 %; HCT 37.3 % (34.0-46.0); HGB 12.7 gm/dL (11.4-16.0); Lymphocytes # (A) 1.5 k/uL (1.0-4.8); Lymphocytes % (A) 29 %; MCH 29.7 pg (25.0-35.0); MCV 87.4 fL (80.0-100.0); Mean Platelet Volume 10.2; Monocytes # (A) 0.3 k/uL (0-1.0); Monocytes % (A) 6 %; Neutrophils # (A) 3.1 k/uL (1.3-7.7); Neutrophils % (A) 60 %; Platelet Count 168 k/uL (150-450); RBC 4.27 m/uL (3.80-5.40); RDW 13.4 % (11.5-15.5); WBC 5.2 k/uL (3.8-10.6)
[2021-08-28 08:44] LABS: Appearance,Urine Clear (Clear); Bilirubin,Urine Negative (Negative); Blood,Urine Moderate (Negative); Color,Urine Yellow; Glucose,Urine (UA) Negative (Negative); Ketones,Urine Negative (Negative); Leukocyte Esterase,Urine Small (Negative); Mucus,Urine Rare /hpf; Nitrite,Urine Negative (Negative); Protein,Urine Trace (Negative); RBC,Urine 136 /hpf (0-5); Specific Gravity,Urine 1.022 (1.001-1.035); Squamous Epithelial Cell,Urine 1 /hpf (0-4); Urobilinogen,Urine <2.0 mg/dL (<2.0); WBC,Urine 2 /hpf (0-5)
[2021-08-28 08:52] LABS: ALT 27 U/L (4-34); AST 33 U/L (14-36); African American GFR (CKD) >90 (>60 ml/min/1.73 sqM); Albumin 4.4 g/dL (3.5-5.0); Alkaline Phosphatase 64 U/L (38-126); Amylase 75 U/L (30-110); Anion Gap 9 mmol/L; Blood Urea Nitrogen 23 mg/dL (7-17); Calcium 9.2 mg/dL (8.4-10.2); Carbon Dioxide 30 mmol/L (22-30); Chloride 101 mmol/L (98-107); Glucose 124 mg/dL (74-99); Lipase 138 U/L (23-300); Non-African American GFR(CKD) 88 (>60 ml/min/1.73 sqM); Potassium 3.2 mmol/L (3.5-5.1); Sodium 140 mmol/L (137-145); Total Bilirubin 0.6 mg/dL (0.2-1.3); Total Protein 7.2 g/dL (6.3-8.2)
[2021-08-28] MEDS ORDERED: POTASSIUM CHLORIDE ER 20 MEQ TAB.ER PO STA (08:59)
--- NOTE | 2021-08-28 09:24 | US ---
EXAMINATION TYPE: US abdomen limited DATE OF EXAM: 08/28/2021 COMPARISON: CT 2021 CLINICAL HISTORY: right side pain. EXAM MEASUREMENTS: Liver Length: 14.1 cm Gallbladder Wall: 0.2 cm CBD: 0.8 cm Right Kidney: 11.2 x 5.9 x 6.8 cm Pancreas: visualized portions wnl, limited by overlying bowel gas Liver: wnl Gallbladder: 0.8cm stone Evidence for sonographic Olivera's sign: no CBD: dilated Right Kidney: 0.5cm stone lateral superior pole, 0.7cm stone medial mid pole IMPRESSION: 1. Cholelithiasis. CBD appears dilated measuring 8 mm small distal CBD stone in the differential diag nosis correlate clinically. 2. Nonobstructing right renal calculi.
--- NOTE | 2021-08-28 09:47 | ED ---
Abdominal Pain HPI - General Chief Complaint: Abdominal Pain Stated Complaint: Abd pain Time Seen by Provider: 08/28/21 07:56 Source: patient, RN notes reviewed Mode of arrival: ambulatory Limitations: no limitations - History of Present Illness Initial Comments: 56-year-old female presents emergency Department with chief complaint of right sided flank, abdominal pain. Patient states started yesterday worsened overnight. Patient states that she's had nausea without vomiting. She has a long history kidney stones. Patient states that this feels slightly different. She states pain wraps around her rib and right upper quadrant. She denies any noted hematuria no dysuria no urinary frequency. Denies fever or Chills. Patient denies prior cholecystectomy. No chest pain. - Related Data Home Medications Medication Instructions Recorded Confirmed Sertraline [Zoloft] 200 mg PO HS 06/18/13 08/28/21 amLODIPine [Norvasc] 5 mg PO HS 06/18/13 08/28/21 Levothyroxine Sodium [Synthroid] 100 mcg PO HS 03/24/15 08/28/21 Potassium Citrate [Potassium 10 meq PO HS 07/02/16 08/28/21 Citrate ER] Indapamide [Lozol] 2.5 mg PO HS 02/19/20 08/28/21 Zolpidem [Ambien] 10 mg PO HS PRN 02/19/20 08/28/21 Previous Rx's Medication Instructions Recorded Simvastatin [Zocor] 40 mg PO HS 90 Days tab 07/01/13 Ketorolac [Toradol] 10 mg PO Q8HR #15 tab 08/28/21 Ondansetron Odt [Zofran Odt] 4 mg PO Q8HR PRN #10 tab 08/28/21 Allergies Allergy/AdvReac Type Severity Reaction Status Date / Time ciprofloxacin [From Cipro] AdvReac Nausea Verified 08/28/21 10:20 Review of Systems ROS Statement: Those systems with pertinent positive or pertinent negative responses have been documented in the HPI. ROS Other: All systems not noted in ROS Statement are negative. Past Medical History Past Medical History: Hyperlipidemia, Hypertension, Thyroid Disorder Additional Past Medical History / Comment(s): Urolithiasis, Kidney Infection. 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 History of Any Multi-Drug Resistant Organisms: None Reported Past Surgical History: Uterine Ablation Additional Past Surgical History / Comment(s): Right ESWL in 2011, Left Percutaneous Nephrolithotomy in May 2013, Left Ureteroscopy with Holmium Laser Lithotripsy in June 2013, endometrial ablation 2007. Colonoscopy. Past Anesthesia/Blood Transfusion Reactions: No Reported Reaction Past Psychological History: Anxiety, Depression Smoking Status: Never smoker Past Alcohol Use History: Rare Past Drug Use History: None Reported - Past Family History Father Family Medical History: Coronary Artery Disease (CAD) Mother Family Medical History: Cancer Additional Family Medical History / Comment(s): AORTIC ANEURYSM. Breast cancer. Brother(s) Family Medical History: Cancer Additional Family Medical History / Comment(s): Multiple myeloma. General Exam Limitations: no limitations General appearance: alert, in no apparent distress Head exam: Present: atraumatic, normocephalic, normal inspection Eye exam: Present: normal appearance, PERRL, EOMI. Absent: scleral icterus, conjunctival injection, periorbital swelling ENT exam: Present: normal exam, normal oropharynx, mucous membranes moist Neck exam: Present: normal inspection, full ROM. Absent: tenderness, meningismus, lymphadenopathy Respiratory exam: Present: normal lung sounds bilaterally. Absent: respiratory distress, wheezes, rales, rhonchi, stridor Cardiovascular Exam: Present: regular rate, normal rhythm, normal heart sounds. Absent: systolic murmur, diastolic murmur, rubs, gallop, clicks GI/Abdominal exam: Present: soft, tenderness, normal bowel sounds. Absent: distended, guarding, rebound, rigid Back exam: Present: CVA tenderness (R). Absent: CVA tenderness (L) Neurological exam: Present: alert Course Vital Signs 08/28/21 08/28/21 08/28/21 07:53 07:58 10:11 Temperature 97.8 F Pulse Rate 71 73 56 L Respiratory 18 18 18 Rate Blood Pressure 132/76 145/90 126/81 O2 Sat by Pulse 99 93 L 96 Oximetry Medical Decision Making - Medical Decision Making 56-year-old female presented from for right-sided abdominal flank pain. Patient labwork is unremarkable. Patient's ultrasound showed possible dilated common bile duct but no noted stone. Patient does have known gallstones, no transaminitis or elevated bilirubin. Patient pain is improved. Patient will follow palpation for cholelithiasis patient was given very strict return parameters given she has mildly dilated common bile duct - Lab Data Result diagrams: 08/28/21 08:11 08/28/21 08:11 Lab Results 08/28/21 08/28/21 08/28/21 Range/Units 08:11 08:11 08:11 WBC 5.2 (3.8-10.6) k/uL RBC 4.27 (3.80-5.40) m/uL Hgb 12.7 (11.4-16.0) gm/dL Hct 37.3 (34.0-46.0) % MCV 87.4 (80.0-100.0) fL MCH 29.7 (25.0-35.0) pg MCHC 34.0 (31.0-37.0) g/dL RDW 13.4 (11.5-15.5) % Plt Count 168 (150-450) k/uL MPV 10.2 Neutrophils % 60 % Lymphocytes % 29 % Monocytes % 6 % Eosinophils % 2 % Basophils % 1 % Neutrophils # 3.1 (1.3-7.7) k/uL Lymphocytes # 1.5 (1.0-4.8) k/uL Monocytes # 0.3 (0-1.0) k/uL Eosinophils # 0.1 (0-0.7) k/uL Basophils # 0.1 (0-0.2) k/uL Sodium 140 (137-145) mmol/L Potassium 3.2 L (3.5-5.1) mmol/L Chloride 101 (98-107) mmol/L Carbon Dioxide 30 (22-30) mmol/L Anion Gap 9 mmol/L BUN 23 H (7-17) mg/dL Creatinine 0.77 (0.52-1.04) mg/dL Est GFR (CKD-EPI)AfAm >90 (>60 ml/min/1.73 sqM) Est GFR (CKD-EPI)NonAf 88 (>60 ml/min/1.73 sqM) Glucose 124 H (74-99) mg/dL Calcium 9.2 (8.4-10.2) mg/dL Total Bilirubin 0.6 (0.2-1.3) mg/dL AST 33 (14-36) U/L ALT 27 (4-34) U/L Alkaline Phosphatase 64 (38-126) U/L Total Protein 7.2 (6.3-8.2) g/dL Albumin 4.4 (3.5-5.0) g/dL Amylase 75 (30-110) U/L Lipase 138 (23-300) U/L Urine Color Yellow Urine Appearance Clear (Clear) Urine pH 6.0 (5.0-8.0) Ur Specific Sandwich 1.022 (1.001-1.035) Urine Protein Trace H (Negative) Urine Glucose (UA) Negative (Negative) Urine Ketones Negative (Negative) Urine Blood Moderate H (Negative) Urine Nitrite Negative (Negative) Urine Bilirubin Negative (Negative) Urine Urobilinogen <2.0 (<2.0) mg/dL Ur Leukocyte Esterase Small H (Negative) Urine RBC 136 H (0-5) /hpf Urine WBC 2 (0-5) /hpf Ur Squamous Epith Cells 1 (0-4) /hpf Urine Mucus Rare H (None) /hpf Disposition Clinical Impression: Cholelithiasis Disposition: HOME SELF-CARE Condition: Stable Instructions (If sedation given, give patient instructions): Gallstones (ED) Additional Instructions: Please return to the Emergency Department if symptoms worsen or any other concerns. Prescriptions: Ketorolac [Toradol] 10 mg PO Q8HR #15 tab Ondansetron Odt [Zofran Odt] 4 mg PO Q8HR PRN #10 tab PRN Reason: Nausea Is patient prescribed a controlled substance at d/c from ED?: No Referrals: Alin Swift Jr, DO [Primary Care Provider] - 1-2 days Gustavo Adler MD [STAFF PHYSICIAN] - 1-2 days Time of Disposition: 10:39
[2021-08-28 10:12] VITALS: BP 126/81; PULSE 56
--- NOTE | 2021-08-28 10:22 | CT ---
EXAMINATION TYPE: CT abdomen pelvis wo con CT DLP: 760 mGycm, Automated exposure control for dose reduction was used. DATE OF EXAM: 08/28/2021 10:15 AM COMPARISON: CT abdomen and pelvis 04/01/2021 CLINICAL INDICATION:Female, 56 years old with history of flank pain; Right sided flank pain and hemat uria. TECHNIQUE: Standard CT of the abdomen and pelvis without IV or oral contrast. Lack of IV or oral co ntrast limits evaluation of solid and hollow organ viscera. Coronal and sagittal reformats were perfo rmed. FINDINGS: LOWER CHEST: Unremarkable ABDOMEN LIVER: Unremarkable noncontrast appearance. GALLBLADDER AND BILE DUCTS: Cholelithiasis without surrounding inflammatory changes. No biliary duct dilatation. PANCREAS: Unremarkable noncontrast appearance. SPLEEN: Unremarkable noncontrast appearance. ADRENAL GLANDS: Unremarkable noncontrast appearance.. KIDNEYS AND URETERS: No hydronephrosis. Nonobstructive multiple bilateral renal calculi measuring up to 3 mm. No ureterolithiasis or hydroureter. PELVIS BLADDER: Limited evaluation due to under distention. No bladder calculi identified. REPRODUCTIVE: Unremarkable noncontrast appearance of the uterus and adnexa. ABDOMEN & PELVIS STOMACH AND BOWEL: Residual contrast demonstrated within the stomach and proximal small bowel. Nonspe cific submucosal fat deposition within the descending colon. The appendix is within normal limits. No focal wall thickening or surrounding inflammatory changes. No evidence of bowel obstruction. PERITONEUM: No evidence of pneumoperitoneum or free fluid. VASCULATURE: No evidence of aortic aneurysm. MUSCULOSKELETAL: No acute osseous abnormalities LYMPH NODES: No gross evidence for lymphadenopathy. SOFT TISSUE/ABDOMINAL WALL: Unremarkable IMPRESSION: 1. No acute abdominal process. No evidence for obstructive uropathy. 2. Nonobstructive bilateral renal calculi. 3. Cholelithiasis.
[2021-08-28] MEDS ORDERED: ACET/COD 300 MG/30 MG STARTER PACK 6 TAB BTL PO STA (10:44)
== END 2021-08-28 10:57 | disposition home or self-care (01) ==
LOC: EC 07:52
DX: K80.20 Calculus of gallbladder without cholecystitis without obstruction (principal); E78.5 Hyperlipidemia, unspecified; E07.9 Disorder of thyroid, unspecified; I10 Essential (primary) hypertension; Z79.899 Other long term (current) drug therapy; Z88.1 Allergy status to other antibiotic agents
CPT/HCPCS: 36415; 80053; 82150; 83690; 85025; 81001; 76705; 74176; 99284; 96374; 96375; 96361; J2405; J1885; J1170

== ENCOUNTER 2021-09-12 11:40 | Day surgery (SDC) | payer MEDICAID ==
[2021-09-11 11:24] VITALS: BMI 29.2
[~2021-09-12 11:40] MED LIST: DEXAMETHASONE SOD PHOSPHATE 4 MG/ML 1 ML VIAL IV ONE; LACTATED RINGERS 1,000 ML IV SCH; LIDOCAINE 1% (10MG/ML) FOR IV START INTRADERMA PRN; ONDANSETRON 4 MG/2 ML VIAL IVP PRN
[2021-09-12] MEDS ORDERED: KETAMINE 10 MG/ML 20 ML VIAL ONE (12:30)
[2021-09-12] MEDS ORDERED: GLYCOPYRROLATE 0.2 MG/ML 2 ML VIAL ONE (12:30)
[2021-09-12] MEDS ORDERED: LIDOCAINE 2% INJ 20 MG/ML (2 ML VIAL) ONE (12:30)
[2021-09-12] MEDS ORDERED: ROCURONIUM 10 MG/ML (5 ML VIAL) IV ONE (12:30)
[2021-09-12] MEDS ORDERED: MIDAZOLAM 2 MG/2 ML VIAL ONE (12:30)
[2021-09-12] MEDS ORDERED: SUCCINYLCHOLINE CHLORIDE 200 MG/10 ML VIAL IV ONE (12:30)
[2021-09-12] MEDS ORDERED: fentaNYL (PF) 50 MCG/ML 2 ML AMP ONE (12:30)
[2021-09-12] MEDS ORDERED: HYDROmorphone (PF) 1 MG/ML ONE (12:30)
[2021-09-12] MEDS ORDERED: NEOSTIGMINE 1 MG/ML 10 ML VIAL ONE (12:30)
[2021-09-12] MEDS ORDERED: PROPOFOL 10 MG/ML 20 ML VIAL IV ONE (12:30)
[2021-09-12] MEDS ORDERED: fentaNYL (PF) 50 MCG/ML 2 ML AMP IVP ONE ×2 (12:35→12:48)
[2021-09-12] MEDS ORDERED: BUPIVACAIN-EPI 0.25%-1:200,000 30 ML VIAL SQ ONE ×3 (12:56→13:22)
--- NOTE | 2021-09-12 14:01 | P.OP ---
Date of Procedure: 09/12/21 Preoperative Diagnosis: Cholelithiasis Postoperative Diagnosis: Cholelithiasis Procedure(s) Performed: Laparoscopic cholecystectomy Anesthesia: VINICIUS Surgeon: Mayra Crowder Estimated Blood Loss (ml): 5 Pathology: other Condition: stable Disposition: PACU Indications for Procedure: Patient presented with abdominal pain and nausea. Workup showed cholelithiasis. There was a strong family history of gallbladder disease. Description of Procedure: The patient's taken the operative suite where she is prepped and draped in the usual sterile manner under a general endotracheal anesthetic. An infraumbilical incision was made and a Veress needle was placed into the abdominal cavity. Pneumoperitoneum was established with CO2 gas. Sites are chosen for accessory trochars needs are placed through small skin incisions. The abdominal and pelvic contents were examined. The liver, diaphragm, large and small bowel are all grossly normal where they were seen. Fundus of the gallbladder is grasped and retracted superiorly. Sin's pouch is then identified, its grasped and retracted laterally. Cystic artery and cystic duct are dissected free. They're triply clipped and cut. The gallbladder is then dissected free from the liver bed. Small bleeding points were controlled with electrocautery. The gallbladder is removed through the umbilical port site. The liver bed is reexamined and noted to be hemostatic. The excess irrigant is suctioned out. The pneumoperitoneum was released. The trocars were removed. The fascia at the umbilicus was closed with 0 Vicryl. The skin incisions were closed with 4-0 Vicryl in a subcuticular manner. Steri-Strips and dressings were applied. She tolerated the procedure without difficulty and was taken to recovery room in satisfactory condition. According to or personnel, all counts were correct. Plan - Discharge Summary Discharge Rx Participant: No New Discharge Prescriptions: New HYDROcodone/APAP 5-325MG [[place] 5-325] 1 - 2 tab PO Q4H PRN #15 tab PRN Reason: Pain No Action amLODIPine [Norvasc] 5 mg PO HS Sertraline [Zoloft] 200 mg PO HS Simvastatin [Zocor] 40 mg PO HS 90 Days tab Levothyroxine Sodium [Synthroid] 100 mcg PO HS Potassium Citrate [Potassium Citrate ER] 10 meq PO HS Zolpidem [Ambien] 10 mg PO HS PRN PRN Reason: Insomnia Indapamide [Lozol] 2.5 mg PO HS Ondansetron Odt [Zofran Odt] 4 mg PO Q8HR PRN #10 tab PRN Reason: Nausea Discharge Medication List Sertraline [Zoloft] 200 mg PO HS 06/18/13 [History] amLODIPine [Norvasc] 5 mg PO HS 06/18/13 [History] Simvastatin [Zocor] 40 mg PO HS 90 Days tab 07/01/13 [Rx] Levothyroxine Sodium [Synthroid] 100 mcg PO HS 03/24/15 [History] Potassium Citrate [Potassium Citrate ER] 10 meq PO HS 07/02/16 [History] Indapamide [Lozol] 2.5 mg PO HS 02/19/20 [History] Zolpidem [Ambien] 10 mg PO HS PRN 02/19/20 [History] Ondansetron Odt [Zofran Odt] 4 mg PO Q8HR PRN #10 tab 08/28/21 [Rx] HYDROcodone/APAP 5-325MG [Kelly 5-325] 1 - 2 tab PO Q4H PRN #15 tab 09/12/21 [Rx] Follow up Appointment(s)/Referral(s): Mayra Crowder DO [Doctor of Osteopathic Medicine] - 2 Weeks Patient Instructions/Handouts: Low Fat Diet (DC) Activity/Diet/Wound Care/Special Instructions: Ice to the incision for 24-48 hours. If the dressings on until . Then they may be removed and you may shower. No swimming or soaking in a tub baths for 1 week. Remove the Steri-Strips(little tapes) in [address] while taking pain pills. Discharge Disposition: HOME SELF-CARE
[2021-09-12] MEDS ORDERED: LACTATED RINGERS 1,000 ML IV ONE (14:04)
[2021-09-12] MEDS ORDERED: ONDANSETRON 4 MG/2 ML VIAL IVP ONE (14:19)
[2021-09-12 14:22] VITALS: TEMP 97.2
[2021-09-12] MEDS: HYDROmorphone 0.5 MG/0.5 ML SYRINGE IVP PRN ×4 (14:43→15:29)
[2021-09-12] MEDS ORDERED: diphenhydrAMINE 50 MG/ML 1 ML VIAL IVP ONE (14:43)
[2021-09-12 15:50] VITALS: RESP 15
[2021-09-12 16:16] VITALS: BP 152/73; PULSE 68
== END 2021-09-12 16:30 | disposition home or self-care (01) ==
LOC: OR 11:40
PROVIDERS: ATTEND Surgery
DX: K80.10 Calculus of gallbladder with chronic cholecystitis without obstruction (principal); Z83.79 Family history of other diseases of the digestive system; E78.5 Hyperlipidemia, unspecified; E07.9 Disorder of thyroid, unspecified; Z87.442 Personal history of urinary calculi; Z88.3 Allergy status to other anti-infective agents; Z79.899 Other long term (current) drug therapy; Z79.890 Hormone replacement therapy; Z80.3 Family history of malignant neoplasm of breast; Z80.8 Family history of malignant neoplasm of other organs or systems; Z82.49 Family history of ischemic heart disease and other diseases of the circulatory system
CPT/HCPCS: 88304; 84132; 47562; J2250; J0330; J1200; J1100; J2710; J0690; J2405; J3010; J1170 ×2; J2704; J2001

== ENCOUNTER 2021-10-28 14:21 | Emergency (ER) | payer MEDICAID ==
[2021-10-28 14:57] VITALS: BP 139/90; PULSE 72; RESP 16; TEMP 97
--- NOTE | 2021-10-28 17:23 | XR ---
EXAMINATION TYPE: XR chest 2V DATE OF EXAM: 10/28/2021 COMPARISON: NONE HISTORY: Short of breath TECHNIQUE: 2 views FINDINGS: Heart and mediastinum are normal. Lungs are clear. Diaphragm is normal. Bony thorax appears normal. IMPRESSION: Normal chest.
--- NOTE | 2021-10-28 18:28 | ED ---
General Adult HPI - General Chief complaint: Upper Respiratory Infection Stated complaint: COVID+ Time Seen by Provider: 10/28/21 18:20 Source: patient, RN notes reviewed, old records reviewed Mode of arrival: ambulatory Limitations: no limitations - History of Present Illness Initial comments: 56-year-old patient alert and oriented 4 presents to the emergency room with complaints of shortness of breath since Saturday with cough and body aches. She denies any fevers, no nausea vomiting diarrhea or chest pain. -: days(s) (4) Severity scale (1-10): 0 Consistency: constant Improves with: none Associated Symptoms: shortness of breath Treatments Prior to Arrival: none - Related Data Home Medications Medication Instructions Recorded Confirmed Sertraline [Zoloft] 200 mg PO HS 06/18/13 09/12/21 amLODIPine [Norvasc] 5 mg PO HS 06/18/13 09/12/21 Levothyroxine Sodium [Synthroid] 100 mcg PO HS 03/24/15 09/12/21 Potassium Citrate [Potassium 10 meq PO HS 07/02/16 09/12/21 Citrate ER] Indapamide [Lozol] 2.5 mg PO HS 02/19/20 09/12/21 Zolpidem [Ambien] 10 mg PO HS PRN 02/19/20 09/12/21 Previous Rx's Medication Instructions Recorded Simvastatin [Zocor] 40 mg PO HS 90 Days tab 07/01/13 Ondansetron Odt [Zofran Odt] 4 mg PO Q8HR PRN #10 tab 08/28/21 HYDROcodone/APAP 5-325MG [[place] 1 - 2 tab PO Q4H PRN #15 tab 09/12/21 5-325] Allergies Allergy/AdvReac Type Severity Reaction Status Date / Time ciprofloxacin [From Cipro] AdvReac Nausea Verified 10/28/21 14:53 Review of Systems ROS Statement: Those systems with pertinent positive or pertinent negative responses have been documented in the HPI. ROS Other: All systems not noted in ROS Statement are negative. Past Medical History Past Medical History: Hyperlipidemia, Hypertension, Thyroid Disorder Additional Past Medical History / Comment(s): kidney stones, hypothyroid, states nausea and pain from gall bladder. History of Any Multi-Drug Resistant Organisms: None Reported Past Surgical History: Uterine Ablation Additional Past Surgical History / Comment(s): Right ESWL 2011, Left Percutaneous Nephrolithotomy May 2013, Left Ureteroscopy with Holmium Laser Lithotripsy June 2013, endometrial ablation 2007. ,Colonoscopy. Past Anesthesia/Blood Transfusion Reactions: No Reported Reaction Past Psychological History: Anxiety, Depression Smoking Status: Never smoker Past Alcohol Use History: Occasional Past Drug Use History: None Reported - Past Family History Father Family Medical History: Coronary Artery Disease (CAD) Mother Family Medical History: Cancer Additional Family Medical History / Comment(s): AORTIC ANEURYSM. Breast cancer. Brother(s) Family Medical History: Cancer Additional Family Medical History / Comment(s): Multiple myeloma. General Exam Limitations: no limitations General appearance: alert, in no apparent distress Head exam: Present: atraumatic, normocephalic, normal inspection Eye exam: Present: normal appearance ENT exam: Present: normal exam, mucous membranes moist Neck exam: Present: normal inspection, full ROM. Absent: tenderness, meningismus Respiratory exam: Present: normal lung sounds bilaterally. Absent: respiratory distress, accessory muscle use Cardiovascular Exam: Present: regular rate GI/Abdominal exam: Present: soft Extremities exam: Present: normal capillary refill. Absent: pedal edema Neurological exam: Present: alert, oriented X3, CN II-XII intact, normal gait Psychiatric exam: Present: normal affect, normal mood Skin exam: Present: warm, dry, intact, normal color. Absent: cyanosis, diaphoretic Course Vital Signs 10/28/21 14:54 Temperature 97 F L Pulse Rate 72 Respiratory 16 Rate Blood Pressure 139/90 O2 Sat by Pulse 97 Oximetry Medical Decision Making - Medical Decision Making Patient presents with shortness of breath and cough since Saturday. She is covid positive. She has been vaccinated. She was asking about monoclonal antibodies infusion which I did explain is no longer available. We did discuss Paxlovid and possible rebound effects and she declined. She was encouraged to take vitamin C, vitamin D and zinc. Tylenol and Motrin as needed for any discomfort or fevers. Follow-up with her primary care doctor next week. Return to the emergency room with any new or concerning symptoms including worsening shortness of breath, chest pain or persistent nausea vomiting. - Lab Data Lab Results 10/28/21 Range/Units 17:12 Coronavirus (PCR) Not Detected (Not Detectd) Disposition Clinical Impression: COVID-19 Disposition: HOME SELF-CARE Condition: Good Instructions (If sedation given, give patient instructions): COVID-19 (Coronavirus Disease 2019) (ED) Additional Instructions: Increase your fluid intake. Tylenol and/or Motrin as needed for body aches or fevers. You can take vitamin C, vitamin D and zinc to improve immune health. Self quarantine while symptomatic. Is patient prescribed a controlled substance at d/c from ED?: No Referrals: Alin Swift Jr, [Primary Care Provider] - 1-2 days Time of Disposition: 18:27
== END 2021-10-28 18:45 | disposition home or self-care (01) ==
LOC: EC 14:21
DX: U07.1 COVID-19 (principal); I10 Essential (primary) hypertension; E03.9 Hypothyroidism, unspecified; Z79.899 Other long term (current) drug therapy; Z79.890 Hormone replacement therapy; Z88.1 Allergy status to other antibiotic agents
CPT/HCPCS: 71046; 87635; 99284

== ENCOUNTER → 2022-01-03 | Outpatient (CLI) | payer MEDICAID ==
--- NOTE | 2022-01-03 16:16 | CT ---
EXAMINATION TYPE: CT abdomen pelvis wo con DATE OF EXAM: 01/03/2022 HISTORY: h/o renal stones CT DLP: 648.6 mGycm. Automated Exposure Control for Dose Reduction was Utilized. TECHNIQUE: CT scan of the abdomen and pelvis is performed without oral or IV contrast. COMPARISON: Prior CT August 28, 2021 and older studies FINDINGS: Within the limitations of a non-contrast study, the following observations are made. LUNG BASES: No significant abnormality is seen. LIVER/GB: Cholecystectomy clips are now present. Single benign-appearing calcification right lateral margin liver axial image 23 is redemonstrated. Small cystic duct remnant noted coronal images 37 thro ugh 40. No new biliary dilatation. PANCREAS: No significant abnormality is seen. SPLEEN: No significant abnormality is seen. ADRENALS: No significant abnormality is seen. KIDNEYS: Approximately 10 scattered tiny left-sided renal calculi measuring up to 2 mm in size on cur rent study. Approximately 6 scattered tiny right renal calculi measuring up to 4 mm coronal image 51 current study. No hydronephrosis or obstructing ureteral calculi bilaterally. Scattered bilateral pel alie phlebolith are redemonstrated. No intraluminal calculi in the urinary bladder. BOWEL: Slightly wandering cecum into the anterior right mid abdomen similar in position to prior stud y. No suspicious small or large bowel dilatation. GENITAL ORGANS: Anteverted uterus. LYMPH NODES: No greater than 1cm abdominal or pelvic lymph nodes are appreciated. OSSEOUS STRUCTURES: Underlying levoconvex scoliosis redemonstrated. Multilevel spurring in the spine redemonstrated. Mild Facet arthropathy lower lumbar levels. Moderate axial joint space loss both hips . OTHER: No significant additional abnormality is seen. IMPRESSION: Nonobstructing tiny bilateral renal calculi redemonstrated. Some decrease in number of ca lculi on the right on current study versus most recent prior CT suggests interval passage of some tin y stones. No hydronephrosis or obstructing ureter calculi noted currently. No acute findings identifi ed currently.
== END | disposition home or self-care (01) ==
LOC: RADCTMAIN 15:41
PROVIDERS: ATTEND Family Medicine
DX: N20.0 Calculus of kidney (principal); Z87.442 Personal history of urinary calculi
CPT/HCPCS: 74176

== ENCOUNTER 2022-04-26 11:41 | Observation (INO) | payer MEDICAID ==
[2022-04-26] MEDS ORDERED: KETOROLAC 15 MG/ML 1 ML VIAL IVP STA (12:20)
[2022-04-26] MEDS ORDERED: MORPHINE SULFATE 4 MG/ML SYRINGE IVP STA (12:20)
[2022-04-26 12:54] LABS: Basophils # (A) 0.1 k/uL (0-0.2); Basophils % (A) 1 %; Eosinophils # (A) 0.3 k/uL (0-0.7); Eosinophils % (A) 4 %; HCT 38.7 % (34.0-46.0); HGB 13.4 gm/dL (11.4-16.0); Lymphocytes # (A) 1.6 k/uL (1.0-4.8); Lymphocytes % (A) 25 %; MCH 29.7 pg (25.0-35.0); MCHC 34.8 g/dL (31.0-37.0); MCV 85.5 fL (80.0-100.0); Mean Platelet Volume 9.1; Monocytes # (A) 0.4 k/uL (0-1.0); Monocytes % (A) 6 %; Neutrophils # (A) 3.9 k/uL (1.3-7.7); Neutrophils % (A) 62 %; Platelet Count 204 k/uL (150-450); RBC 4.52 m/uL (3.80-5.40); RDW 14.4 % (11.5-15.5); WBC 6.3 k/uL (3.8-10.6)
[2022-04-26 13:17] LABS: RBC,Urine >182 /hpf (0-5); Squamous Epithelial Cell,Urine 7 /hpf (0-4); WBC,Urine >182 /hpf (0-5)
--- NOTE | 2022-04-26 13:18 | CT ---
EXAMINATION: CT ABDOMEN AND PELVIS WITH IV CONTRAST DATE OF EXAMINATION: 04/26/2022. COMPARISON: 01/03/2022. INDICATION: Stents placed on 04/17/2022 with history of lithotripsy in 2014. PROCEDURE: Axial CT of the abdomen and pelvis was performed with contrast and sagittal and coronal reformatted images were performed. CT dose lowering techniques were used, to include: automated expos ure control, adjustment for patient size, and/or use of iterative reconstruction. FINDINGS: LOWER CHEST : The visualized lung bases are clear. There are no pleural or pericardial effusions. ABDOMEN: Liver and Biliary system: There is a slightly lobulated contour to the liver which could relate to c irrhosis. No suspicious liver lesions are otherwise seen. Adrenal glands: Normal. Kidneys and ureters: There are bilateral nephroureteral stents which appear appropriately positioned. There is mild prominence of the collecting systems otherwise noted bilaterally. There are no stones seen within the ureters adjacent to the stents. No focal renal lesion is otherwise seen. Spleen: Normal. Pancreas: Normal. Gallbladder: Surgically absent. Lymph nodes, Peritoneum and mesentery: There is no mesenteric or retroperitoneal lymphadenopathy. Gastrointestinal tract: There are no dilated loops of bowel or free intraperitoneal air. The appe ndix is normal. Aorta/IVC: There is mild vascular calcification throughout the abdominal aorta without evidence of aneurysmal dilation or dissection. IVC normal. Abdominal wall: Normal. PELVIS: Fluid: There is no free fluid in the pelvis. Lymph Nodes: There is no pelvic or inguinal lymphadenopathy.. Urinary bladder: Normal. BONES: There are no osseous destructive lesions.. ADDITIONAL SIGNIFICANT FINDINGS: None. IMPRESSION: 1. Bilateral nephroureteral stents which appear appropriately positioned with mild bilateral hydronep hrosis. There does appear to be some mucosal enhancement within the renal collecting systems as well as within the ureters bilaterally which could be inflammatory or infectious. 2. No bowel obstruction or appendicitis. 3. Mildly lobulated contour to liver can be seen in the setting of cirrhosis. Clinical correlation is recommended.
[2022-04-26 13:21] LABS: Appearance,Urine Bloody (Clear)
[2022-04-26 13:23] LABS: ALT 25 U/L (4-34); AST 24 U/L (14-36); African American GFR (CKD) >90 (>60 ml/min/1.73 sqM); Albumin 4.6 g/dL (3.5-5.0); Alkaline Phosphatase 68 U/L (38-126); Anion Gap 8 mmol/L; Blood Urea Nitrogen 30 mg/dL (7-17); Calcium 9.4 mg/dL (8.4-10.2); Carbon Dioxide 29 mmol/L (22-30); Chloride 103 mmol/L (98-107); Glucose 115 mg/dL (74-99); Lipase 125 U/L (23-300); Magnesium 1.8 mg/dL (1.6-2.3); Non-African American GFR(CKD) >90 (>60 ml/min/1.73 sqM); Potassium 4.1 mmol/L (3.5-5.1); Sodium 140 mmol/L (137-145); Total Bilirubin 0.5 mg/dL (0.2-1.3); Total Protein 7.6 g/dL (6.3-8.2)
--- NOTE | 2022-04-26 15:39 | ED ---
General Adult HPI - General Chief complaint: Abdominal Pain Stated complaint: Post Op Pain Time Seen by Provider: 04/26/22 12:01 Source: patient Mode of arrival: ambulatory Limitations: no limitations - History of Present Illness Initial comments: This is a 56-year-old female with a past medical history including multiple kidney stones and multiple stents presented to the emergency department for bilateral abdominal pain secondary to her ureteral stents. The patient stated that the stents have been placed on 228 and she had continued pain from the i nitial insertion of the stents. The patient stated that she has had stents multiple times in the past and stated this pain is more severe than any other time she has had. The patient stated that she had continued hematuria but had continued abdominal pain that was not relieved by pain medications at home. The patient denied any fevers and chills. The patient tried to reach her urologist however was told that it was typical pain but she insisted that the pain was worse or she came to the emergency department. On arrival, the patient denied of any acute distress but stated that she had continued bilateral lower abdominal pain without flank pain. - Related Data Home Medications Medication Instructions Recorded Confirmed Sertraline [Zoloft] 200 mg PO HS 06/18/13 04/17/22 amLODIPine [Norvasc] 5 mg PO HS 06/18/13 04/13/22 Levothyroxine Sodium [Synthroid] 100 mcg PO HS 03/24/15 04/17/22 Potassium Citrate [Potassium 10 meq PO HS 07/02/16 04/17/22 Citrate ER] Indapamide [Lozol] 2.5 mg PO HS 02/19/20 04/17/22 Zolpidem [Ambien] 10 mg PO HS PRN 02/19/20 04/17/22 Ibuprofen [Motrin Ib] 600 mg PO Q8H PRN 04/13/22 04/13/22 traMADol HCL 50 mg PO Q6H PRN 04/13/22 04/17/22 Previous Rx's Medication Instructions Recorded Simvastatin [Zocor] 40 mg PO HS 90 Days tab 07/01/13 Ondansetron Odt [Zofran Odt] 4 mg PO Q8HR PRN #10 tab 08/28/21 Cephalexin [Keflex] 500 mg PO Q8HR #15 cap 04/17/22 Ketorolac [Toradol] 10 mg PO Q6HR PRN #15 tab 04/17/22 Ondansetron [Zofran] 4 mg PO Q8HR PRN #20 tab 04/17/22 Allergies Allergy/AdvReac Type Severity Reaction Status Date / Time ciprofloxacin [From Cipro] AdvReac Nausea Verified 04/17/22 10:19 Review of Systems ROS Statement: Those systems with pertinent positive or pertinent negative responses have been documented in the HPI. ROS Other: All systems not noted in ROS Statement are negative. Past Medical History Past Medical History: Hyperlipidemia, Hypertension, Thyroid Disorder Additional Past Medical History / Comment(s): Recurrent Urolithiasis, Kidney Infection. 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 History of Any Multi-Drug Resistant Organisms: None Reported Past Surgical History: Cholecystectomy, Uterine Ablation Additional Past Surgical History / Comment(s): Right ESWL in 2011, Left Perc utaneous Nephrolithotomy in May 2013, Left Ureteroscopy with Holmium Laser Lithotripsy in June 2013, NOVOSURE. Colonoscopy approximately 2015.kidney stents 04/17/22 Past Anesthesia/Blood Transfusion Reactions: No Reported Reaction Past Psychological History: Depression Smoking Status: Never smoker - Past Family History Father Additional Family Medical History / Comment(s): Cancer type uncertain. Mother Additional Family Medical History / Comment(s): AORTIC ANEURYSM. Breast cancer. Brother(s) Additional Family Medical History / Comment(s): Multiple myeloma. General Exam Limitations: no limitations General appearance: alert, in no apparent distress Head exam: Present: atraumatic, normocephalic, normal inspection Eye exam: Present: normal appearance, PERRL Pupils: Present: normal accommodation ENT exam: Present: normal exam, normal oropharynx, mucous membranes moist Neck exam: Present: normal inspection, full ROM Respiratory exam: Present: normal lung sounds bilaterally Cardiovascular Exam: Present: regular rate, normal rhythm, normal heart sounds GI/Abdominal exam: Present: soft, tenderness (In the B/L lower abdominal quadra nts) Extremities exam: Present: normal inspection, full ROM Back exam: Present: normal inspection, full ROM Neurological exam: Present: alert, oriented X3, CN II-XII intact Psychiatric exam: Present: normal affect, normal mood Skin exam: Present: warm, dry Course Vital Signs 04/26/22 11:47 Temperature 98 F Pulse Rate 73 Respiratory 16 Rate Blood Pressure 134/78 O2 Sat by Pulse 98 Oximetry Medical Decision Making - Medical Decision Making Was pt. sent in by a medical professional or institution (, [facility], [employer], urgent care, hospital, or senior living...) When possible be specific @ -No Did you speak to anyone other than the patient for history (EMS, parent, family, police, friend...)? What history was obtained from this source @ -No Did you review nursing and triage notes (agree or disagree)? Why? @ -I reviewed and agree with nursing and triage notes Were old charts reviewed (outside hosp., previous admission, EMS record, old EKG, old radiological studies, urgent care reports/EKG's, senior living records)? Report findings @ -No old charts were reviewed Differential Diagnosis (chest pain, altered mental status, abdominal pain women, abdominal pain men, vaginal bleeding, weakness, fever, dyspnea, syncope, headache, dizziness, GI bleed, back pain, seizure, CVA, palpatations, mental health)? @ -Pyelonephritis, stent obstruction, UTI EKG interpreted by me (3pts min.). @ -None X-rays interpreted by me (1pt min.). @ -None done CT interpreted by me (1pt min.). @ -CT abdomen and pelvis with contrast was obtained and was interpreted by myself showing bilateral nephroureteral stents which appear appropriately positioned with bilateral mild hydronephrosis. There does appear to be some mucosal enhancement within the renal collecting system as well as within the ureters bilaterally which could be inflammatory or infectious. There was no bowel obstruction or appendicitis. There was also mildly lobular did contact her of the liver that can be seen in the setting of cirrhosis. U/S interpreted by me (1pt. min.). @ -None done What testing was considered but not performed or refused? (CT, X-rays, U/S, labs)? Why? @ -None What meds were considered but not given or refused? Why? @ -None Did you discuss the management of the patient with other professionals (professionals i.e. ELISABETH Caraballo, [employer], lab, RT, psych nurse, social insurance analyst, salesperson terrazzo tiles, teacher, chief operations officer, case worker)? Give summary @ -Yes, Dr. Ryan was attempted to be called multiple times however was not organizational development consultant. Urology on-call, Dr. Turpin was contacted and ultimately accepted the patient for admission Was smoking cessation discussed for >3mins.? @ -No Was critical care preformed (if so, how long)? @ -No Were there social determinants of health that impacted care today? How? (Homelessness, low income, unemployed, alcoholism, drug addiction, transportation, low edu. Level, literacy, decrease access to med. care, intermediate, rehab)? @ -No Was there de-escalation of care discussed even if they declined (Discuss DNR or withdrawal of care, Hospice)? DNR status @ -No What co-morbidities impacted this encounter? (DM, HTN, Smoking, COPD, CAD, Cancer, CVA, ARF, Chemo, Hep., AIDS, mental health diagnosis, sleep apnea, morbid obesity)? @ -Extensive history of kidney stones and multiple stents Was patient admitted / discharged? Hospital course, mention meds given and route, prescriptions, significant lab abnormalities, going to OR and other pertinent info. @ -The patient was seen and evaluated in the emergency department. On physical exam, the patient was resting in bed without any acute distress. Vital signs were stable. Laboratory workup and CT scans were obtained. All laboratory workup was within normal limits and there was large blood in the urine therefore no further microscopic testing could be done. Due to the patient's continued pain in the setting of stents, the patient was given multiple pain medications but did not have significant relief. The patient did request to stay in the hospital rather than go home as the patient was concerned about pain returning. The urologist on-call was contacted and did accept the patient for admission. The patient was admitted in stable condition. Undiagnosed new problem with uncertain prognosis? @ -No Drug Therapy requiring intensive monitoring for toxicity (Heparin, Nitro, Insu earnestine, Cardizem)? @ -No Were any procedures done? @ -No Diagnosis/symptom? @ -Intractable pain secondary to ureteral stents with mild hydronephrosis Acute, or Chronic, or Acute on Chronic? @ -Acute Uncomplicated (without systemic symptoms) or Complicated (systemic symptoms)? @ -Complicated Side effects of treatment? @ -No Exacerbation, Progression, or Severe Exacerbation? @ -No Poses a threat to life or bodily function? How? (Chest pain, USA, MA, pneumonia, PE, COPD, DKA, ARF, appy, cholecystitis, CVA, Diverticulitis, Homicidal, S uicidal, threat to staff... and all critical care pts) @ -No - Lab Data Result diagrams: 04/26/22 12:40 04/26/22 12:40 Lab Results 04/26/22 04/26/22 04/26/22 Range/Units 11:54 12:40 12:40 WBC 6.3 (3.8-10.6) k/uL RBC 4.52 (3.80-5.40) m/uL Hgb 13.4 (11.4-16.0) gm/dL Hct 38.7 (34.0-46.0) % MCV 85.5 (80.0-100.0) fL MCH 29.7 (25.0-35.0) pg MCHC 34.8 (31.0-37.0) g/dL RDW 14.4 (11.5-15.5) % Plt Count 204 (150-450) k/uL MPV 9.1 Neutrophils % 62 % Lymphocytes % 25 % Monocytes % 6 % Eosinophils % 4 % Basophils % 1 % Neutrophils # 3.9 (1.3-7.7) k/uL Lymphocytes # 1.6 (1.0-4.8) k/uL Monocytes # 0.4 (0-1.0) k/uL Eosinophils # 0.3 (0-0.7) k/uL Basophils # 0.1 (0-0.2) k/uL Sodium 140 (137-145) mmol/L Potassium 4.1 (3.5-5.1) mmol/L Chloride 103 (98-107) mmol/L Carbon Dioxide 29 (22-30) mmol/L Anion Gap 8 mmol/L BUN 30 H (7-17) mg/dL Creatinine 0.71 (0.52-1.04) mg/dL Est GFR (CKD-EPI)AfAm >90 (>60 ml/min/1.73 sqM) Est GFR (CKD-EPI)NonAf >90 (>60 ml/min/1.73 sqM) Glucose 115 H (74-99) mg/dL Calcium 9.4 (8.4-10.2) mg/dL Magnesium 1.8 (1.6-2.3) mg/dL Total Bilirubin 0.5 (0.2-1.3) mg/dL AST 24 (14-36) U/L ALT 25 (4-34) U/L Alkaline Phosphatase 68 (38-126) U/L Total Protein 7.6 (6.3-8.2) g/dL Albumin 4.6 (3.5-5.0) g/dL Lipase 125 (23-300) U/L Urine Appearance Bloody H (Clear) Urine RBC >182 H (0-5) /hpf Urine WBC >182 H (0-5) /hpf Ur Squamous Epith Cells 7 H (0-4) /hpf Disposition Clinical Impression: Abdominal pain, Intractable pain, Ureteral stent present, Hydronephrosis Disposition: ADMITTED IP TO THIS [facility] Condition: Stable Is patient prescribed a controlled substance at d/c from ED?: No Referrals: Alin Swift Jr, DO [Primary Care Provider] - 1-2 days Time of Disposition: 14:45 Decision to Admit Reason: Admit from EC Decision Date: 04/26/22 Decision Time: 14:45
[2022-04-26] MEDS ORDERED: NALOXONE 0.4 MG/ML 1 ML VIAL IV PRN (15:40)
[2022-04-26] MEDS: MORPHINE SULFATE 4 MG/ML SYRINGE IV PRN ×2 (16:31→21:08)
[2022-04-26] MEDS ORDERED: ZOLPIDEM 5 MG TAB PO PRN (17:21)
[2022-04-26] MEDS ORDERED: ONDANSETRON 4 MG TAB PO PRN (17:21)
[2022-04-26] MEDS: OXYBUTYNIN CHLORIDE 5 MG TAB PO SCH ×2 (17:57→21:05)
[2022-04-26] MEDS: KETOROLAC 15 MG/ML 1 ML VIAL IVP PRN (19:40)
[2022-04-26] MEDS ORDERED: LEVOTHYROXINE 100 MCG TAB PO SCH (21:00)
[2022-04-26] MEDS ORDERED: TAMSULOSIN 0.4 MG CAP.ER.24H PO SCH (21:00)
[2022-04-26] MEDS ORDERED: POTASSIUM CITRATE 10 MEQ TABLET.ER PO SCH (21:00)
[2022-04-26] MEDS ORDERED: hydroCHLOROthiazide 25 MG TAB PO SCH (21:00)
[2022-04-26] MEDS ORDERED: SERTRALINE 100 MG TAB PO SCH (21:00)
[2022-04-26] MEDS ORDERED: amLODIPine 5 MG TAB PO SCH (21:00)
[2022-04-26] MEDS ORDERED: ATORVASTATIN 20 MG TAB PO SCH (21:00)
[2022-04-27 01:54] VITALS: RESP 18
[2022-04-27] MEDS: MORPHINE SULFATE 4 MG/ML SYRINGE IV PRN ×2 (01:58→07:26)
[2022-04-27] MEDS: KETOROLAC 15 MG/ML 1 ML VIAL IVP PRN (05:32)
[2022-04-27] MEDS: OXYBUTYNIN CHLORIDE 5 MG TAB PO SCH (07:26)
[2022-04-27 08:13] VITALS: BP 116/59; PULSE 58; TEMP 97.6
--- NOTE | 2022-04-27 09:05 | P.DS ---
Providers Date of admission: 04/26/22 15:42 Expected date of discharge: 04/27/22 Attending physician: Jonathan Turpin Primary care physician: Alin Swfit - Discharge Diagnosis(es) (1) Ureteral stent present Current Visit: Yes Status: Acute Hospital Course: Patient is a 56-year-old female with a history of bilateral renal stones and recurrent UTIs. On 04/17/22 she underwent a cystoscopy, bilateral ureteroscopy, holmium laser lithotripsy, stone basketing getting and bilateral stent insertion of Dr. Ryan. She presented to the emergency department on 04/26/22 for bilateral abdominal pain. She stated she has had continued pain that was not relieved by pain medication at home since her stents were inserted. She had an abdomen/pelvis CT which showed her bilateral ureteral stents are in good position. No stones were seen within the ureters adjacent to the stents. Her urinalysis showed WBCs and RBCs greater than 182. Urine culture pending. The patient is being discharged. Arrangements have been made for her to see Dr. Ryan in his office this afternoon for stent removal. Impression and plan of care have been directed as dictated by the signing physician. Alia Hall nurse practitioner acting as scribe for signing physician. Alia Hall [facility] Palliative Care/Urology Spectralink [id number] Email: [email or web address] Patient Condition at Discharge: Good Plan - Discharge Summary Discharge Rx Participant: No New Discharge Prescriptions: New Cephalexin [Keflex] 500 mg PO Q12HR 7 Days #14 cap Continue amLODIPine [Norvasc] 5 mg PO HS Sertraline [Zoloft] 200 mg PO HS Simvastatin [Zocor] 40 mg PO HS 90 Days tab Levothyroxine Sodium [Synthroid] 100 mcg PO HS Potassium Citrate [Potassium Citrate ER] 10 meq PO HS Zolpidem [Ambien] 10 mg PO HS Indapamide [Lozol] 2.5 mg PO HS traMADol HCL 50 mg PO Q6H PRN PRN Reason: Pain Ibuprofen [Motrin Ib] 600 mg PO Q8H PRN PRN Reason: Pain Ketorolac [Toradol] 10 mg PO Q6HR PRN #15 tab PRN Reason: Pain Tamsulosin [Flomax] 0.4 mg PO HS Ondansetron [Zofran] 4 mg PO Q8HR PRN #20 tab PRN Reason: Nausea Discharge Medication List Sertraline [Zoloft] 200 mg PO HS 06/18/13 [History] amLODIPine [Norvasc] 5 mg PO HS 06/18/13 [History] Simvastatin [Zocor] 40 mg PO HS 90 Days tab 07/01/13 [Rx] Levothyroxine Sodium [Synthroid] 100 mcg PO HS 03/24/15 [History] Potassium Citrate [Potassium Citrate ER] 10 meq PO HS 07/02/16 [History] Indapamide [Lozol] 2.5 mg PO HS 02/19/20 [History] Zolpidem [Ambien] 10 mg PO HS 02/19/20 [History] Ibuprofen [Motrin Ib] 600 mg PO Q8H PRN 04/13/22 [History] traMADol HCL 50 mg PO Q6H PRN 04/13/22 [History] Ketorolac [Toradol] 10 mg PO Q6HR PRN #15 tab 04/17/22 [Rx] Ondansetron [Zofran] 4 mg PO Q8HR PRN #20 tab 04/17/22 [Rx] Tamsulosin [Flomax] 0.4 mg PO HS 04/26/22 [History] Cephalexin [Keflex] 500 mg PO Q12HR 7 Days #14 cap 04/27/22 [Rx] Follow up Appointment(s)/Referral(s): Alin Swift Jr, DO [Primary Care Provider] - 1-2 days Wilian Ryan MD [STAFF PHYSICIAN] - (today) Activity/Diet/Wound Care/Special Instructions: Please see Dr. Ryan in the office today at 1:00pm for stent removal Discharge Disposition: HOME SELF-CARE
--- NOTE | 2022-04-27 09:36 | P.HPIM ---
History of Present Illness H&P Date: 04/27/22 Chief Complaint: Abdominal pain This is a 56-year-old female with a past medical history including multiple kidney stones and multiple stents. She presented to the emergency department for bilateral abdominal pain secondary to her ureteral stents that were placed on 04/17/22. She has had continued pain from the initial insertion of the stents. The patient stated that she has had stents multiple times in the past and stated this pain is more severe than any other time she has had. The patient stated that pain was not relieved by pain medications at home. She also reports hematuria. The patient denied any fevers and chills. 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 History of Any Multi-Drug Resistant Organisms: None Reported Past Surgical History: Cholecystectomy, Uterine Ablation Additional Past Surgical History / Comment(s): Right ESWL in 2011, Left Percutaneous Nephrolithotomy in May 2013, Left Ureteroscopy with Holmium Laser Lithotripsy in June 2013, NOVOSURE. Colonoscopy approximately 2015, bilateral ureteral stents placed 04/17/[address] Ryan Past Anesthesia/Blood Transfusion Reactions: No Reported Reaction Smoking Status: Never smoker - Past Family History Father Additional Family Medical History / Comment(s): Cancer type uncertain. Mother Additional Family Medical History / Comment(s): AORTIC ANEURYSM. Breast cancer. Brother(s) Additional Family Medical History / Comment(s): Multiple myeloma. Medications and Allergies Home Medications Medication Instructions Recorded Confirmed Type Sertraline [Zoloft] 200 mg PO HS 06/18/13 04/26/22 History amLODIPine [Norvasc] 5 mg PO HS 06/18/13 04/26/22 History Simvastatin [Zocor] 40 mg PO HS 90 Days tab 07/01/13 04/26/22 Rx Levothyroxine Sodium [Synthroid] 100 mcg PO HS 03/24/15 04/26/22 History Potassium Citrate [Potassium 10 meq PO HS 07/02/16 04/26/22 History Citrate ER] Indapamide [Lozol] 2.5 mg PO HS 02/19/20 04/26/22 History Zolpidem [Ambien] 10 mg PO HS 02/19/20 04/26/22 History Ibuprofen [Motrin Ib] 600 mg PO Q8H PRN 04/13/22 04/26/22 History traMADol HCL 50 mg PO Q6H PRN 04/13/22 04/26/22 History Ketorolac [Toradol] 10 mg PO Q6HR PRN #15 tab 04/17/22 04/26/22 Rx Ondansetron [Zofran] 4 mg PO Q8HR PRN #20 tab 04/17/22 04/26/22 Rx Tamsulosin [Flomax] 0.4 mg PO HS 04/26/22 04/26/22 History Cephalexin [Keflex] 500 mg PO Q12HR 7 Days #14 cap 04/27/22 Rx Allergies Allergy/AdvReac Type Severity Reaction Status Date / Time ciprofloxacin [From Cipro] AdvReac Nausea Verified 04/26/22 16:20 Physical Exam Vitals: Vital Signs Temp Pulse Pulse Resp BP BP Pulse Ox 04/27/22 08:00 97.6 F 58 L 116/59 95 04/27/22 01:54 98.0 F 65 18 112/76 94 L 04/26/22 19:50 97.7 F 56 L 16 109/63 96 04/26/22 19:45 16 04/26/22 17:20 97.7 F 56 L 16 135/77 96 04/26/22 16:39 97.8 F 63 16 138/74 97 04/26/22 11:47 98 F 73 16 134/78 98 Intake and Output 04/26/22 04/27/22 04/27/22 22:59 06:59 14:59 Intake Total 50 400 Balance 50 400 Intake: Intake, IV Titration 50 Amount cefTRIAXone 1 gm In 50 Sodium Chloride 0.9% 50 ml @ 100 mls/hr IVPB Q24HR [facility] Rx#:[id number] Oral 400 Other: Voiding Method Toilet Toilet # Voids 1 3 Weight 84.822 kg General: Well developed, well nourished. No acute distress. HEENT: Head is atraumatic, normocephalic. Lungs: Respirations even and nonlabored. Abdomen/GI: Soft, nondistended. + Lower abdominal tenderness bilaterally. : No suprapubic tenderness. Skin: Warm and dry Neurologic: Alert and oriented 3, CN II-XII grossly intact. No focal deficits. Psychiatric: Appropriate mood and affect. Results CBC & Chem 7: 04/26/22 12:40 04/26/22 12:40 Labs: Abnormal Lab Results - Last 24 Hours (Table) 04/26/22 04/26/22 Range/Units 11:54 12:40 BUN 30 H (7-17) mg/dL Glucose 115 H (74-99) mg/dL Urine Appearance Bloody H (Clear) Urine RBC >182 H (0-5) /hpf Urine WBC >182 H (0-5) /hpf Ur Squamous Epith Cells 7 H (0-4) /hpf Microbiology - Last 24 Hours (Table) 04/26/22 11:54 Urine Culture - Preliminary Urine,Voided CT scan - abdomen: report reviewed CT scan - pelvis: report reviewed Thrombosis Risk Factor Assmnt - DVT/VTE Prophylaxis DVT/VTE Prophylaxis: Low risk, early ambulation encouraged - Choose All That Apply Any of the Below Risk Factors Present?: Yes Each Factor Represents 1 point: Age 41-60 years, Obesity (BMI >25) Other Risk Factors: No Other congenital or acquired thrombophilia - If yes, enter type in comment: No Thrombosis Risk Factor Assessment Total Risk Factor Score: 2 Thrombosis Risk Factor Assessment Level: Low Risk Assessment and Plan Assessment: Upon examination the patient reports still having significant amount of pain. She states she has had stents in the past and they have never like this. Abdomen/pelvis CT showed her bilateral ureteral stents are in good position. No stones were seen within the ureters adjacent to the stents. Her urinalysis showed WBCs and RBCs greater than 182. Urine culture pending. (1) Ureteral stent present Status: Acute Code(s): Z96.0 - PRESENCE OF UROGENITAL IMPLANTS SNOMED Code(s): 5970963262 Plan: The patient will be discharged. She will see Dr. Ryan in the office at 1 PM today for stent removal. A prescription has been sent to her pharmacy for Keflex. Impression and plan of care have been directed as dictated by the signing physician. Alia Hall nurse practitioner acting as scribe for signing physician. Alia Hall [facility] Palliative Care/Urology Spectralink [id number] Email: [email or web address] The above patient has been evaluated and reviewed by me. I concur with the above document Jonathan Turpin MD
--- NOTE | 2022-05-02 12:53 | CDI ---
Documentation Clarification Form Date: 05/02/2022 12:36:34 PM From: Sangeeta Siddiqui Admit Date: 04/26/2022 3:42:00 PM Patient Name: Radha Larios Visit Number: [id number] Discharge Date: 04/27/2022 10:02:00 AM ATTENTION: The Clinical Documentation Specialists (CDI) and [facility] Coding Staff appreciate your assistance in clarifying documentation. Please respond to the clarification below the line at the bottom and electronically sign. The CDI & [facility] Coding staff will review the response and follow-up if needed. Please note: Queries are made part of the Legal Health Record. If you have any questions, please contact the author of this message via ITS. Dr. Jonathan Turpin Postoperative bilateral abdominal pain secondary to ureteral stents is documented in the ED note 04-26-22, but is not noted in subsequent documentation. Clarification is requested for the etiology of the abdominal pain. History/Risk Factors: 56 year old female, has a hx of multiple kidney stones with placement of stents. Had recent ureteral stents placed. Patient has a hx of HLD, HTN, thyroid disorder, and recurrent UTIs. Clinical Indicators: patient presented for bilateral abdominal pain. Has had stents placed in the past, and the pain has never been like this. It has been consistent since insertion, not relieved by pain medication. Abdominal CT: shows bilateral ureteral stents in good position, no stones seen within the ureters adjacent to the stents. Urine: appearance: bloody, RBC: >182, WBC > 182 Squamous Epith Cells: 7 Culture: no growth after 18 hours Treatment: Keflex, at discharge patient to see Dr Ryan in office for stent removal Please clarify the etiology of the abdominal pain: [ ] Acute Postoperative Abdominal Pain bilaterally due to ureteral stents [ ] Acute abdominal pain [ ] UTI [ ] Other condition, please specify [ ] Unable to determine acute post op abdominal pain secondary to stents MTDD
== END 2022-04-27 10:02 | disposition home or self-care (01) ==
LOC: EC 11:41 → 5NMEDONC 15:42 → OBSVTOIN 15:42 → INTOOBSV 15:42 → 5NMEDONC 16:45 → UNDODISIN 04-27 10:02
PROVIDERS: ADMIT Urology; ATTEND Urology
DX: T83.84XA Pain due to genitourinary prosthetic devices, implants and grafts, initial encounter (principal); N13.30 Unspecified hydronephrosis; I10 Essential (primary) hypertension; F32.A Depression, unspecified; E78.5 Hyperlipidemia, unspecified; Z79.899 Other long term (current) drug therapy; Z88.1 Allergy status to other antibiotic agents; Z90.49 Acquired absence of other specified parts of digestive tract; Z80.3 Family history of malignant neoplasm of breast; Z80.7 Family history of other malignant neoplasms of lymphoid, hematopoietic and related tissues; Z83.2 Family history of diseases of the blood and blood-forming organs and certain disorders involving the immune mechanism; Z87.440 Personal history of urinary (tract) infections
CPT/HCPCS: 96376 ×3; 96365; 96366; 96375; 99285; 36415; 80053; 83690; 83735; 85025; 81001; 87086; 74177; G0378 ×3; J2270 ×2; J0696 ×2; J1885 ×2; Q9967; 96374

== ENCOUNTER → 2022-10-03 | Outpatient (CLI) | payer MEDICAID ==
--- NOTE | 2022-10-03 11:43 | XR ---
EXAMINATION TYPE: XR KUB DATE OF EXAM: 10/03/2022 COMPARISON: NONE HISTORY: Pain TECHNIQUE: One view abdominal series FINDINGS: The osseous structures are intact. The bowel gas pattern is nonspecific. Lung bases are clear. Surg ical clips in the right upper quadrant. Numerous calcifications in pelvis appear to been present on p rior exam likely vascular. Right kidney: There appear to be a couple punctate 1 to 2 mm right renal calculi similar to prior exa m. IMPRESSION: 1. There are couple punctate stable appearing right renal calculi measuring 2 mm or less..
== END | disposition home or self-care (01) ==
LOC: RADXRMAIN 11:19
PROVIDERS: ATTEND Family Medicine
DX: N20.0 Calculus of kidney (principal)
CPT/HCPCS: 74018

== ENCOUNTER → 2023-02-27 | Outpatient (CLI) | payer MEDICAID ==
--- NOTE | 2023-02-27 12:24 | CT ---
EXAMINATION TYPE: CT abdomen pelvis wo con CT DLP: 983 mGycm, Automated exposure control for dose reduction was used. DATE OF EXAM: 02/27/2023 8:19 AM COMPARISON: None. CLINICAL INDICATION:Female, 57 years old with history of M54.50 low back pain; hematuria left flank p ain TECHNIQUE: Axial CT of the abdomen and pelvis. Sagittal and coronal reformats were created on a [employer] workstation. Contrast used: mL of , (none if empty) Oral contrast used: without Oral Contrast (none if empty) FINDINGS: Exam is limited without contrast. LOWER CHEST: Unremarkable lower lungs. Heart size upper normal. Trace pericardial fluid. ABDOMEN LIVER: A couple calcifications suggesting prior granulomatous disease. GALLBLADDER AND BILE DUCTS: The gallbladder is surgically absent. Biliary tree does not appear pathol ogically dilated. PANCREAS: Mild fatty infiltrated without acute finding. SPLEEN: Unremarkable. ADRENAL GLANDS: No evidence of mass.. KIDNEYS AND URETERS: Several punctate calculi bilaterally along the periphery of the renal sinus fat. Largest calculus seen is 5 x 2 mm in the lower pole on the right. No definite ureteral stones or hyd roureteronephrosis at this time. PELVIS BLADDER: Bladder is mostly empty without evidence of intraluminal calculi. REPRODUCTIVE: Uterus and adnexal regions appear grossly unremarkable, though not well assessed by CT. ABDOMEN & PELVIS STOMACH AND BOWEL: Stomach and small bowel do not appear significantly distended to suggest obstructi on. There is liquid content in small bowel loops with a mildly patulous appearance, nonspecific. Ileo cecal valve appears fatty infiltrated. Normal appendix is seen on axial image 60. Cecum is high ridin g located in the mid right abdomen. There is moderate stool throughout with no focal acute abnormalit y detected. There are a few scattered diverticula suggested. PERITONEUM/RETROPERITONEUM: No evidence of pneumoperitoneum or free fluid. VASCULATURE: Mild atherosclerotic calcifications are present throughout the abdominal aorta and its b ranches. No evidence of aortic aneurysm. LYMPH NODES: No gross evidence for lymphadenopathy. SOFT TISSUE/ABDOMINAL WALL: Unremarkable MUSCULOSKELETAL: No acute osseous abnormalities. Mild disc degeneration changes are present throughou t the thoracolumbar spine. IMPRESSION: 1. Bilateral punctate nonobstructing renal calculi, plus a small calculus in the lower pole on the r ight. 2. No evidence of ureteral calculi or hydronephrosis. 3. No evidence of small bowel obstruction. Possible mild ileus or enteritis. 4. Mild degenerative changes of the lumbar spine. No acute osseous abnormality..
== END | disposition home or self-care (01) ==
LOC: RADCTMAIN 07:52
PROVIDERS: ATTEND Family Medicine
DX: N20.0 Calculus of kidney (principal); M47.816 Spondylosis without myelopathy or radiculopathy, lumbar region
CPT/HCPCS: 74176

== ENCOUNTER 2023-05-11 13:04 | Observation (INO) | payer MEDICAID ==
[2023-05-11] MEDS: ONDANSETRON 4 MG/2 ML VIAL IVP STA (13:45)
[2023-05-11] MEDS: SODIUM CHLORIDE 0.9% 1,000 ML IV STA (13:45)
[2023-05-11] MEDS: KETOROLAC 15 MG/ML 1 ML VIAL IVP STA (13:47)
--- NOTE | 2023-05-11 13:54 | ED ---
General Adult HPI - General Chief complaint: Abdominal Pain Stated complaint: abd pain nausea Time Seen by Provider: 05/11/23 13:12 Source: patient, RN notes reviewed Mode of arrival: ambulatory Limitations: no limitations - History of Present Illness Initial comments: 57-year-old female presents to the emergency department with chief complaint of bilateral flank pain. She states that this started yesterday. Pain radiates into her right-sided groin. She notes that since then she has noticed hematuria and noticed a blood clot in her urine. She does report a history of kidney stones. She states that she passes them frequently. She denies fever, chills. Admits to nausea without vomiting. - Related Data Home Medications Medication Instructions Recorded Confirmed Sertraline [Zoloft] 200 mg PO HS 06/18/13 05/11/23 amLODIPine [Norvasc] 5 mg PO HS 06/18/13 05/11/23 Levothyroxine Sodium [Synthroid] 100 mcg PO HS 03/24/15 05/11/23 Indapamide [Lozol] 2.5 mg PO HS 02/19/20 05/11/23 Zolpidem [Ambien] 10 mg PO HS PRN 02/19/20 05/11/23 traMADol HCL 50 mg PO Q6H PRN 04/13/22 05/11/23 Tamsulosin [Flomax] 0.4 mg PO HS 04/26/22 05/11/23 Previous Rx's Medication Instructions Recorded Simvastatin [Zocor] 40 mg PO HS 90 Days tab 07/01/13 Allergies Allergy/AdvReac Type Severity Reaction Status Date / Time ciprofloxacin [From Cipro] AdvReac Nausea, Verified 05/11/23 21:11 upset stomach Review of Systems ROS Statement: Those systems with pertinent positive or pertinent negative responses have been documented in the HPI. ROS Other: All systems not noted in ROS Statement are negative. 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 History of Any Multi-Drug Resistant Organisms: None Reported Past Surgical History: Cholecystectomy, Uterine Ablation Additional Past Surgical History / Comment(s): Right ESWL in 2011, Left Percutaneous Nephrolithotomy in May 2013, Left Ureteroscopy with Holmium Laser Lithotripsy in June 2013, [facility]. Colonoscopy approximately 2016, bilateral ureteral stents placed 04/17/[address] Ryan Past Anesthesia/Blood Transfusion Reactions: No Reported Reaction Past Psychological History: Depression Smoking Status: Never smoker Past Alcohol Use History: Rare Past Drug Use History: None Reported - Past Family History Father Family Medical History: Coronary Artery Disease (CAD) Additional Family Medical History / Comment(s): Cancer type uncertain. Mother Family Medical History: Cancer Additional Family Medical History / Comment(s): AORTIC ANEURYSM. Breast cancer. Brother(s) Family Medical History: Cancer Additional Family Medical History / Comment(s): Multiple myeloma. General Exam Limitations: no limitations General appearance: alert, in no apparent distress Head exam: Present: atraumatic, normocephalic, normal inspection Eye exam: Present: normal appearance, PERRL, EOMI. Absent: scleral icterus, conjunctival injection, periorbital swelling ENT exam: Present: normal exam, mucous membranes moist Neck exam: Present: normal inspection. Absent: tenderness, meningismus, lymphadenopathy Respiratory exam: Present: normal lung sounds bilaterally. Absent: respiratory distress, wheezes, rales, rhonchi, stridor Cardiovascular Exam: Present: regular rate, normal rhythm, normal heart sounds. Absent: systolic murmur, diastolic murmur, rubs, gallop, clicks GI/Abdominal exam: Present: soft, tenderness (Suprapubic), normal bowel sounds. Absent: distended, guarding, rebound, rigid Extremities exam: Present: normal inspection, full ROM, normal capillary refill. Absent: tenderness, pedal edema, joint swelling, calf tenderness Back exam: Present: CVA tenderness (R). Absent: CVA tenderness (L) Neurological exam: Present: alert, oriented X3 Psychiatric exam: Present: normal affect, normal mood Skin exam: Present: warm, dry, intact, normal color. Absent: rash Course Vital Signs 05/11/23 05/11/23 05/11/23 13:07 16:05 18:53 Temperature 98.1 F 97.8 F Pulse Rate 71 63 58 L Respiratory 20 18 18 Rate Blood Pressure 134/80 121/74 148/84 O2 Sat by Pulse 96 98 96 Oximetry 05/11/23 21:54 Temperature 98.1 F Pulse Rate 57 L Respiratory 18 Rate Blood Pressure 146/84 O2 Sat by Pulse 99 Oximetry Medical Decision Making - Medical Decision Making Was pt. sent in by a medical professional or institution (ELISABETH Caraballo, LICENSED APPRAISER, urgent care, hospital, or custodial...) When possible be specific @ -No Did you speak to anyone other than the patient for history (EMS, parent, family, police, friend...)? What history was obtained from this source @ -No Did you review nursing and triage notes (agree or disagree)? Why? @ -I reviewed and agree with nursing and triage notes Were old charts reviewed (outside hosp., previous admission, EMS record, old EKG, old radiological studies, urgent care reports/EKG's, custodial records)? Report findings @ -No old charts were reviewed Differential Diagnosis (chest pain, altered mental status, abdominal pain women, abdominal pain men, vaginal bleeding, weakness, fever, dyspnea, syncope, headache, dizziness, GI bleed, back pain, seizure, CVA, palpatations, mental health, musculoskeletal)? @ -Differential Abdominal Pain Women: Appendicitis, Cholecystitis, diverticulosis, ischemic bowel, pancreatitis, hepatitis, UTI, gastroenteritis, AAA, incarcerated hernia, bowel obstruction, constipation, inflammatory bowel, hepatitis, peptic ulcer disease, splenic infarction, perforated viscus, vulvitis, ovarian torsion, PID, kidney stone, placenta abruption, this is not meant to be an all-inclusive list EKG interpreted by me (3pts min.). @ -None X-rays interpreted by me (1pt min.). @ -None done CT interpreted by me (1pt min.). @ -None done U/S interpreted by me (1pt. min.). @ -None done What testing was considered but not performed or refused? (CT, X-rays, U/S, labs)? Why? @ -None What meds were considered but not given or refused? Why? @ -None Did you discuss the management of the patient with other professionals (professionals i.e. ELISABETH Caraballo, LICENSED APPRAISER, lab, RT, psych nurse, social security specialist, rail signal worker, teacher, department of natural resources officer, family independence case manager)? Give summary @ -Discussed with Dr. Turpin who states patient can be treated on an outpatient basis if pain controlled otherwise admission to medicine reasonable with urology on consult Management discussed with Dr. Pineda Was smoking cessation discussed for >3mins.? @ -No Was critical care preformed (if so, how long)? @ -No Were there social determinants of health that impacted care today? How? (Homelessness, low income, unemployed, alcoholism, drug addiction, transportation, low edu. Level, literacy, decrease access to med. care, halfway, rehab)? @ -No Was there de-escalation of care discussed even if they declined (Discuss DNR or withdrawal of care, Hospice)? DNR status @ -No What co-morbidities impacted this encounter? (DM, HTN, Smoking, COPD, CAD, Cancer, CVA, ARF, Chemo, Hep., AIDS, mental health diagnosis, sleep apnea, morbid obesity)? @ -None Was patient admitted / discharged? Hospital course, mention meds given and route, prescriptions, significant lab abnormalities, going to OR and other pertinent info. @ -Admitted. Presented to the emergency department for evaluation of flank pain, hematuria x 1 day. Laboratory studies obtained. WBC within normal limits at 6.3; patient has mild hypokalemia 3.2; normal BUN and creatinine; UA shows 1+ protein, moderate blood, positive nitrates, large leukocyte esterase. CT abdomen pelvis obtained which showed a 5 mm renal pelvic stone on the right with mild right hydronephrosis with peripelvic and proximal periureteral edema. Patient was given 1 L normal saline in the emergency department. Pain control attempted with Toradol without improvement. She also received Zofran which helped with her nausea. Patient was given a dose of morphine which she states improved her pain slightly. She was then given a dose of 0.5 mg Dilaudid. Case was discussed with Dr. Turpin with urology, states that patient can be managed on outpatient basis if pain controlled. She was reevaluated and still in significant pain. Discussed with Dr. Pineda who is willing to accept the admission. Discussed outpatient treatment versus admission, patient does not feel comfortable going home with her level of pain. Patient will be admitted for pain control and will see urology in the a.m. Case discussed with my attending, Dr. Whiting. Undiagnosed new problem with uncertain prognosis? @ -No Drug Therapy requiring intensive monitoring for toxicity (Heparin, Nitro, Insulin, Cardizem)? @ -No Were any procedures done? @ -No Diagnosis/symptom? @ -Renal pelvic stone, UTI Acute, or Chronic, or Acute on Chronic? @ -acute Uncomplicated (without systemic symptoms) or Complicated (systemic symptoms)? @ -uncomplicated Side effects of treatment? @ -No Exacerbation, Progression, or Severe Exacerbation? @ -No Poses a threat to life or bodily function? How? (Chest pain, [place], [place], pneumonia, PE, COPD, DKA, ARF, appy, cholecystitis, CVA, Diverticulitis, Homicidal, Suicidal, threat to staff... and all critical care pts) @ -No - Lab Data Result diagrams: 05/11/23 13:37 05/11/23 13:37 Lab Results 05/11/23 05/11/23 05/11/23 Range/Units 13:37 13:37 13:37 WBC 6.3 (3.8-10.6) k/uL RBC 4.39 (3.80-5.40) m/uL Hgb 13.0 (11.4-16.0) gm/dL Hct 38.5 (34.0-46.0) % MCV 87.7 (80.0-100.0) fL MCH 29.6 (25.0-35.0) pg MCHC 33.8 (31.0-37.0) g/dL RDW 13.5 (11.5-15.5) % Plt Count 199 (150-450) k/uL MPV 9.6 Neutrophils % 56 % Lymphocytes % 34 % Monocytes % 5 % Eosinophils % 2 % Basophils % 1 % Neutrophils # 3.5 (1.3-7.7) k/uL Lymphocytes # 2.1 (1.0-4.8) k/uL Monocytes # 0.3 (0-1.0) k/uL Eosinophils # 0.2 (0-0.7) k/uL Basophils # 0.1 (0-0.2) k/uL Sodium 141 (137-145) mmol/L Potassium 3.2 L (3.5-5.1) mmol/L Chloride 103 (98-107) mmol/L Carbon Dioxide 26 (22-30) mmol/L Anion Gap 12 mmol/L BUN 17 (7-17) mg/dL Creatinine 0.63 (0.52-1.04) mg/dL Est GFR (CKD-EPI)AfAm >90 (>60 ml/min/1.73 sqM) Est GFR (CKD-EPI)NonAf >90 (>60 ml/min/1.73 sqM) Glucose 116 H (74-99) mg/dL Calcium 9.3 (8.4-10.2) mg/dL Total Bilirubin 0.5 (0.2-1.3) mg/dL AST 28 (14-36) U/L ALT 28 (4-34) U/L Alkaline Phosphatase 65 (38-126) U/L Total Protein 7.4 (6.3-8.2) g/dL Albumin 4.5 (3.5-5.0) g/dL Amylase 84 (30-110) U/L Lipase 109 (23-300) U/L Urine Color Yellow Urine Appearance Cloudy H (Clear) Urine pH 6.0 (5.0-8.0) Ur Specific [place] 1.024 (1.001-1.035) Urine Protein 1+ H (Negative) Urine Glucose (UA) Negative (Negative) Urine Ketones Negative (Negative) Urine Blood Moderate H (Negative) Urine Nitrite Positive H (Negative) Urine Bilirubin Negative (Negative) Urine Urobilinogen <2.0 (<2.0) mg/dL Ur Leukocyte Esterase Large H (Negative) Urine RBC >182 H (0-5) /hpf Urine WBC 114 H (0-5) /hpf Ur Squamous Epith Cells <1 (0-4) /hpf Calcium Oxalate Crystal Occasional H (None) /hpf Urine Bacteria Many H (None) /hpf Urine Mucus Many H (None) /hpf Disposition Clinical Impression: Stone in renal pelvis, Intractable pain Disposition: ADMITTED IP TO THIS [facility] Condition: Stable Is patient prescribed a controlled substance at d/c from ED?: No
[2023-05-11 14:01] LABS: Basophils # (A) 0.1 k/uL (0-0.2); Basophils % (A) 1 %; Eosinophils # (A) 0.2 k/uL (0-0.7); Eosinophils % (A) 2 %; HCT 38.5 % (34.0-46.0); Lymphocytes # (A) 2.1 k/uL (1.0-4.8); Lymphocytes % (A) 34 %; MCH 29.6 pg (25.0-35.0); MCHC 33.8 g/dL (31.0-37.0); MCV 87.7 fL (80.0-100.0); Mean Platelet Volume 9.6; Monocytes # (A) 0.3 k/uL (0-1.0); Monocytes % (A) 5 %; Neutrophils # (A) 3.5 k/uL (1.3-7.7); Neutrophils % (A) 56 %; Platelet Count 199 k/uL (150-450); RBC 4.39 m/uL (3.80-5.40); RDW 13.5 % (11.5-15.5); WBC 6.3 k/uL (3.8-10.6)
[2023-05-11 14:12] LABS: ALT 28 U/L (4-34); AST 28 U/L (14-36); African American GFR (CKD) >90 (>60 ml/min/1.73 sqM); Albumin 4.5 g/dL (3.5-5.0); Alkaline Phosphatase 65 U/L (38-126); Amylase 84 U/L (30-110); Anion Gap 12 mmol/L; Blood Urea Nitrogen 17 mg/dL (7-17); Calcium 9.3 mg/dL (8.4-10.2); Carbon Dioxide 26 mmol/L (22-30); Chloride 103 mmol/L (98-107); Glucose 116 mg/dL (74-99); Lipase 109 U/L (23-300); Non-African American GFR(CKD) >90 (>60 ml/min/1.73 sqM); Potassium 3.2 mmol/L (3.5-5.1); Sodium 141 mmol/L (137-145); Total Bilirubin 0.5 mg/dL (0.2-1.3); Total Protein 7.4 g/dL (6.3-8.2)
[2023-05-11 15:57] LABS: Appearance,Urine Cloudy (Clear); Bacteria,Urine Many /hpf; Bilirubin,Urine Negative (Negative); Blood,Urine Moderate (Negative); Calcium Oxalate Crystals,Urine Occasional /hpf; Color,Urine Yellow; Glucose,Urine (UA) Negative (Negative); Ketones,Urine Negative (Negative); Leukocyte Esterase,Urine Large (Negative); Mucus,Urine Many /hpf; Nitrite,Urine Positive (Negative); Protein,Urine 1+ (Negative); RBC,Urine >182 /hpf (0-5); Specific Gravity,Urine 1.024 (1.001-1.035); Squamous Epithelial Cell,Urine <1 /hpf (0-4); Urobilinogen,Urine <2.0 mg/dL (<2.0); WBC,Urine 114 /hpf (0-5)
[2023-05-11] MEDS: POTASSIUM CHLORIDE ER 20 MEQ TAB.ER PO STA (16:08)
[2023-05-11] MEDS: MORPHINE SULFATE 4 MG/ML SYRINGE IVP STA (16:09)
--- NOTE | 2023-05-11 16:33 | CT ---
EXAMINATION TYPE: CT abdomen pelvis wo con DATE OF EXAM: 05/11/2023 COMPARISON: 02/27/2023 HISTORY: flank pain CT DLP: 685.7 mGycm Automated exposure control for dose reduction was used. TECHNIQUE: Helical acquisition of images was performed from the lung bases through the pelvis. FINDINGS: LUNG BASES: No significant abnormality is appreciated. LIVER/GB: Postcholecystectomy changes. Mild reduced attenuation of the liver with slight nodular cont our can be associated with underlying hepatocellular disease or hepatic steatosis. Recommend correlat ion with liver function studies. PANCREAS: No significant abnormality is seen. SPLEEN: No significant abnormality is seen. ADRENALS: No significant abnormality is seen. KIDNEYS: Mild right hydronephrosis and perinephric edema. There is a 4 mm right renal pelvic calcific ation. No definite ureteral calcification. Additional bilateral punctate 1 to 2 mm bilateral calculi. FREE AIR: No free air is visualized RETROPERITONEAL ADENOPATHY: None visualized REPRODUCTIVE ORGANS: No significant abnormality is seen URINARY BLADDER: No significant abnormality is seen. PELVIC ADENOPATHY: None visualized. OSSEOUS STRUCTURES: Hypertrophic and degenerative changes of the spine. BOWEL: No significant abnormality is seen. Of fatty replacement wall the colon can be associated wit h chronic inflammatory conditions. Appendix is normal. OTHER: Aorta of normal caliber. Mild atherosclerotic changes. Calcifications are seen along the perip howie of the liver on the coronal image. IMPRESSION: 1. Mild right hydronephrosis with peripelvic and proximal periureteral edema likely secondary to a 5 mm right renal pelvic stone. No definite ureteral calcification seen. 2. Additional bilateral nonobstructing nephrolithiasis.
[2023-05-11] MEDS: HYDROmorphone 0.5 MG/0.5 ML SYRINGE IVP STA (18:55)
[2023-05-11] MEDS ORDERED: KETOROLAC 15 MG/ML 1 ML VIAL IVP PRN (19:08)
[2023-05-11] MEDS ORDERED: HYDROmorphone 0.5 MG/0.5 ML SYRINGE IVP PRN (19:08)
[2023-05-11] MEDS ORDERED: ACETAMINOPHEN TAB 325 MG TAB PO PRN (19:08)
[2023-05-11] MEDS ORDERED: NALOXONE 0.4 MG/ML 1 ML VIAL IV PRN (19:08)
[2023-05-11] MEDS: SODIUM CHLORIDE 0.9% 1,000 ML IV SCH (19:39)
[2023-05-11] MEDS: HYDROmorphone 1 MG/ML 1 ML SYRINGE IVP PRN (22:08)
[2023-05-11] MEDS: ONDANSETRON 4 MG/2 ML VIAL IVP PRN (22:18)
[2023-05-11] MEDS: hydrOXYzine pamoate 25 MG CAP PO SCH (23:57)
[2023-05-12] MEDS: TAMSULOSIN 0.4 MG CAP.ER.24H PO SCH (01:02)
[2023-05-12] MEDS: IBUPROFEN 400 MG TAB PO PRN (03:59)
[2023-05-12 09:31] VITALS: RESP 20; TEMP 97.9
--- NOTE | 2023-05-12 11:34 | P.HPIM ---
History of Present Illness H&P Date: 05/12/23 Chief Complaint: Uncontrolled pain, UTI, nephrolithiasis This is a pleasant 57-year-old female that works at [employer]. She reports while at work yesterday been experiencing increased bilateral flank pain. Does have a history of kidney stones. The pain became more severe and radiated to her right groin. She then began experiencing gross hematuria and clot. Came to emergency room seen evaluated. She was found to have UTI along with a 5 mm right renal pelvis stone. There is mild right hydronephrosis noted. He has several other nonobstructing stones bilaterally. Overnight she received ceftriaxone, and Dilaudid for pain. She is feeling better. Some minimal nausea. Eitel signs are stable. Laboratory studies are pending. Urology consult pending. 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 History of Any Multi-Drug Resistant Organisms: None Reported Past Surgical History: Cholecystectomy, Uterine Ablation Additional Past Surgical History / Comment(s): Right ESWL in 2011, Left Percutaneous Nephrolithotomy in May 2013, Left Ureteroscopy with Holmium Laser Lithotripsy in June 2013, [facility]. Colonoscopy approximately 2015, bilateral ureteral stents placed 04/17/[address] Ryan Past Anesthesia/Blood Transfusion Reactions: No Reported Reaction Past Psychological History: Depression Additional Psychological History / Comment(s): ON RX Smoking Status: Never smoker Past Alcohol Use History: Rare Past Drug Use History: None Reported - Past Family History Father Family Medical History: Coronary Artery Disease (CAD) Additional Family Medical History / Comment(s): Cancer type uncertain. Mother Family Medical History: Cancer Additional Family Medical History / Comment(s): AORTIC ANEURYSM. Breast cancer. Brother(s) Family Medical History: Cancer Additional Family Medical History / Comment(s): Multiple myeloma. 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 employment (including self-employed).: No Medications and Allergies Home Medications Medication Instructions Recorded Confirmed Type Sertraline [Zoloft] 200 mg PO HS 06/18/13 05/11/23 History amLODIPine [Norvasc] 5 mg PO HS 06/18/13 05/11/23 History Simvastatin [Zocor] 40 mg PO HS 90 Days tab 07/01/13 05/11/23 Rx Levothyroxine Sodium [Synthroid] 100 mcg PO HS 03/24/15 05/11/23 History Indapamide [Lozol] 2.5 mg PO HS 02/19/20 05/11/23 History Zolpidem [Ambien] 10 mg PO HS PRN 02/19/20 05/11/23 History traMADol HCL 50 mg PO Q6H PRN 04/13/22 05/11/23 History Tamsulosin [Flomax] 0.4 mg PO HS 04/26/22 05/11/23 History Allergies Allergy/AdvReac Type Severity Reaction Status Date / Time ciprofloxacin [From Cipro] AdvReac Nausea, Verified 05/11/23 21:11 upset stomach Physical Exam Vitals: Vital Signs Temp Pulse Pulse Resp BP BP Pulse Ox 05/12/23 08:18 97.9 F 69 20 122/81 98 05/12/23 02:00 16 05/11/23 22:33 98.7 F 52 L 16 162/88 99 05/11/23 21:54 98.1 F 57 L 18 146/84 99 05/11/23 18:53 97.8 F 58 L 18 148/84 96 05/11/23 16:05 63 18 121/74 98 05/11/23 13:07 98.1 F 71 20 134/80 96 Intake and Output 05/11/23 05/12/23 05/12/23 22:59 06:59 14:59 Other: # Voids 1 Weight 83.915 kg GENERAL: Fatigued female middle-age, in no minimal if any distress at this time HEAD: Atraumatic, normocephalic. EYES: Pupils equal round and reactive to light, extraocular movements intact, sclera anicteric, conjunctiva are normal. ENT:nares patent, oropharynx clear without exudates. Moist mucous membranes. NECK: Normal range of motion, supple without lymphadenopathy or JVD, no thyromegaly LUNGS: Breath sounds clear to auscultation bilaterally and equal. No wheezes rales or rhonchi. HEART: Regular rate and rhythm without murmurs, rubs or gallops.S1S2 Normal ABDOMEN: Soft, nontender, normoactive bowel sounds. No guarding, no rebound. No masses appreciated. EXTREMITIES: Normal range of motion, no pitting or edema. No clubbing or cyanosis. NEUROLOGICAL: Cranial nerves II through XII grossly intact. Normal speech, normal gait. PSYCH: Normal mood, normal affect. SKIN: Warm, Dry, normal turgor, no rashes or lesions noted. Results CBC & Chem 7: 05/11/23 13:37 05/11/23 13:37 Labs: Abnormal Lab Results - Last 24 Hours (Table) 05/11/23 05/11/23 Range/Units 13:37 13:37 Potassium 3.2 L (3.5-5.1) mmol/L Glucose 116 H (74-99) mg/dL Urine Appearance Cloudy H (Clear) Urine Protein 1+ H (Negative) Urine Blood Moderate H (Negative) Urine Nitrite Positive H (Negative) Ur Leukocyte Esterase Large H (Negative) Urine RBC >182 H (0-5) /hpf Urine WBC 114 H (0-5) /hpf Calcium Oxalate Crystal Occasional H (None) /hpf Urine Bacteria Many H (None) /hpf Urine Mucus Many H (None) /hpf CT scan - abdomen: report reviewed Thrombosis Risk Factor Assmnt - DVT/VTE Prophylaxis DVT/VTE Prophylaxis: Low risk, early ambulation encouraged - Choose All That Apply Any of the Below Risk Factors Present?: Yes Each Factor Represents 1 point: Age 41-60 years, Obesity (BMI >25) Other Risk Factors: No Other congenital or acquired thrombophilia - If yes, enter type in comment: No Thrombosis Risk Factor Assessment Total Risk Factor Score: 2 Thrombosis Risk Factor Assessment Level: Low Risk Assessment and Plan (1) Pyelonephritis, acute Current Visit: No Status: Acute Priority: Medium Code(s): N10 - ACUTE PYELONEPHRITIS SNOMED Code(s): 47418767 (2) Hypokalemia Current Visit: Yes Status: Acute Code(s): E87.6 - HYPOKALEMIA SNOMED Code(s): 86734974 (3) Essential (primary) hypertension Current Visit: Yes Status: Acute Code(s): I10 - ESSENTIAL (PRIMARY) HYPERTENSION SNOMED Code(s): 44926385 (4) Adult hypothyroidism Current Visit: Yes Status: Acute Code(s): E03.9 - HYPOTHYROIDISM, UNSPECIFIED SNOMED Code(s): 50767792 (5) Depression Current Visit: Yes Status: Acute Code(s): F32.A - DEPRESSION, UNSPECIFIED SNOMED Code(s): 41036229 (6) Insomnia Current Visit: Yes Status: Acute Code(s): G47.00 - INSOMNIA, UNSPECIFIED SNOMED Code(s): 753432045 (7) Intractable pain Current Visit: Yes Status: Acute Code(s): R52 - PAIN, UNSPECIFIED SNOMED C ode(s): 15054739 (8) Stone in renal pelvis Current Visit: Yes Status: Acute Code(s): N20.0 - CALCULUS OF KIDNEY SNOMED Code(s): 871461368 (9) Hydronephrosis Current Visit: No Status: Acute Code(s): N13.30 - UNSPECIFIED HYDRONEPHROSIS SNOMED Code(s): 39246318 Plan: Wait on urology consultation, reorder ceftriaxone times 1 more dose, resume her home medications with exception of Ambien at this time. Reorder her tramadol for pain if ibuprofen is not enough, continue hydromorphone if absolutely needed, monitor vitals, possible discharge later this afternoon, would expect a lithotripsy outpatient with urology
[2023-05-12] MEDS ORDERED: traMADol 50 MG TAB PO PRN (11:35)
[2023-05-12 12:02] LABS: Basophils % (A) 1 %; Eosinophils # (A) 0.2 k/uL (0-0.7); Eosinophils % (A) 2 %; HCT 33.1 % (34.0-46.0); HGB 11.8 gm/dL (11.4-16.0); Lymphocytes # (A) 1.8 k/uL (1.0-4.8); Lymphocytes % (A) 27 %; MCH 31.4 pg (25.0-35.0); MCHC 35.6 g/dL (31.0-37.0); MCV 88.3 fL (80.0-100.0); Mean Platelet Volume 9.8; Monocytes # (A) 0.3 k/uL (0-1.0); Monocytes % (A) 5 %; Neutrophils # (A) 4.4 k/uL (1.3-7.7); Neutrophils % (A) 64 %; Platelet Count 158 k/uL (150-450); RBC 3.75 m/uL (3.80-5.40); WBC 6.8 k/uL (3.8-10.6)
[2023-05-12 12:14] LABS: African American GFR (CKD) >90 (>60 ml/min/1.73 sqM); Anion Gap 6 mmol/L; Blood Urea Nitrogen 19 mg/dL (7-17); Calcium 8.2 mg/dL (8.4-10.2); Carbon Dioxide 26 mmol/L (22-30); Chloride 109 mmol/L (98-107); Glucose 96 mg/dL (74-99); Magnesium 1.8 mg/dL (1.6-2.3); Non-African American GFR(CKD) >90 (>60 ml/min/1.73 sqM); Potassium 3.4 mmol/L (3.5-5.1); Sodium 141 mmol/L (137-145)
[2023-05-12] MEDS: POTASSIUM CHLORIDE ER 20 MEQ TAB.ER PO STA (13:05)
[2023-05-12 14:05] VITALS: BP 125/82; PULSE 62
--- NOTE | 2023-05-12 15:58 | P.DS ---
Providers Date of admission: 05/11/23 20:10 Expected date of discharge: 05/12/23 Attending physician: Temo Pineda Consults: 05/11/23 19:08 Consult Physician Routine Consulting Provider: Jonathan Turpin Consult Reason/Comments: renal pelvis stone Do you want consulting provider notified?: Already Contacted Primary care physician: Alin Swift - Discharge Diagnosis(es) (1) Pyelonephritis, acute Current Visit: No Status: Acute Priority: Medium (2) Hypokalemia Current Visit: Yes Status: Acute (3) Essential (primary) hypertension Current Visit: Yes Status: Acute (4) Adult hypothyroidism Current Visit: Yes Status: Acute (5) Depression Current Visit: Yes Status: Acute (6) Insomnia Current Visit: Yes Status: Acute (7) Intractable pain Current Visit: Yes Status: Acute (8) Stone in renal pelvis Current Visit: Yes Status: Acute (9) Hydronephrosis Current Visit: No Status: Acute Hospital Course: This is a pleasant 57-year-old female that works at [employer]. She reports while at work yesterday been experiencing increased bilateral flank pain. Does have a history of kidney stones. The pain became more severe and radiated to her right groin. She then began experiencing gross hematuria and clot. Came to emergency room seen evaluated. She was found to have UTI along with a 5 mm right renal pelvis stone. There is mild right hydronephrosis noted. He has several other nonobstructing stones bilaterally. Overnight she received ceftriaxone, and Dilaudid for pain. She is feeling better. Some min addendum: pt was sen by uroloy who cleared her for discharge. she received supplemental KCl for hypokalemia nad Rocephin 1gm x 2 for her UTI. SHe has pain medication at home and requested discharge. Patient Condition at Discharge: Stable Plan - Discharge Summary New Discharge Prescriptions: Continue amLODIPine [Norvasc] 5 mg PO HS Sertraline [Zoloft] 200 mg PO HS Simvastatin [Zocor] 40 mg PO HS 90 Days tab Levothyroxine Sodium [Synthroid] 100 mcg PO HS Zolpidem [Ambien] 10 mg PO HS PRN PRN Reason: sleep Indapamide [Lozol] 2.5 mg PO HS traMADol HCL 50 mg PO Q6H PRN PRN Reason: Pain Tamsulosin [Flomax] 0.4 mg PO HS Discharge Medication List Sertraline [Zoloft] 200 mg PO HS 06/18/13 [History] amLODIPine [Norvasc] 5 mg PO HS 06/18/13 [History] Simvastatin [Zocor] 40 mg PO HS 90 Days tab 07/01/13 [Rx] Levothyroxine Sodium [Synthroid] 100 mcg PO HS 03/24/15 [History] Indapamide [Lozol] 2.5 mg PO HS 02/19/20 [History] Zolpidem [Ambien] 10 mg PO HS PRN 02/19/20 [History] traMADol HCL 50 mg PO Q6H PRN 04/13/22 [History] Tamsulosin [Flomax] 0.4 mg PO HS 04/26/22 [History] Follow up Appointment(s)/Referral(s): Alin Swift Jr, DO [Primary Care Provider] - 1-2 days Jonathan Turpin MD [STAFF PHYSICIAN] - 1 Week Patient Instructions/Handouts: Kidney Stones (DC), Hypokalemia (DC) Discharge Disposition: HOME SELF-CARE
--- NOTE | 2023-05-12 16:15 | P.GSCN ---
History of Present Illness Consult date: 05/12/23 History of present illness: 57 yo female known to me with kidney stone disease. Presents with bilateral flank pain rt > lt. She had a ct scan in the er identifying a 5 mm renal pelvic stone and a 2 mm left renal stone. SHe also had a urine consistent with a uti. Her wbc are normal at 6k. SHe is not febriel Her pain is under control at present. Review of Systems All systems: negative - Constitutional Denies fever, Denies weight loss - EENT Eyes: denies blurred vision Ears, nose, mouth and throat: Denies dysphagia - Cardiovascular Denies chest pain, Denies shortness of breath - Respiratory Denies cough, Denies 7 - Gastrointestinal Reports as per HPI - Genitourinary Genitourinary: Denies dysuria, Denies hematuria - Integumentary Denies rash, Denies unusual bruising - Neurological Denies headaches, Denies syncope - Hematologic/Lymphatic Denies easy bleeding, Denies easy bruising Past Medical History Past Medical History: Hyperlipidemia, Hypertension, Thyroid Disorder Additional Past Medical History / Comment(s): Recurrent Urolithiasis,hypothyroidism,Kidney Infection, 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 History of Any Multi-Drug Resistant Organisms: None Reported Past Surgical History: Cholecystectomy, Uterine Ablation Additional Past Surgical History / Comment(s): Right ESWL in 2011, Left Percutaneous Nephrolithotomy in May 2013, Left Ureteroscopy with Holmium Laser Lithotripsy in June 2013, NOVOSURE. Colonoscopy approximately 2015, bilateral ureteral stents placed 04/17/[address] Ryan Past Anesthesia/Blood Transfusion Reactions: No Reported Reaction Past Psychological History: Depression Additional Psychological History / Comment(s): ON RX Smoking Status: Never smoker Past Alcohol Use History: Rare Past Drug Use History: None Reported - Past Family History Father Family Medical History: Coronary Artery Disease (CAD) Additional Family Medical History / Comment(s): Cancer type uncertain. Mother Family Medical History: Cancer Additional Family Medical History / Comment(s): AORTIC ANEURYSM. Breast cancer. Brother(s) Family Medical History: Cancer Additional Family Medical History / Comment(s): Multiple myeloma. Medications and Allergies Home Medications Medication Instructions Recorded Confirmed Type Sertraline [Zoloft] 200 mg PO HS 06/18/13 05/11/23 History amLODIPine [Norvasc] 5 mg PO HS 06/18/13 05/11/23 History Simvastatin [Zocor] 40 mg PO HS 90 Days tab 07/01/13 05/11/23 Rx Levothyroxine Sodium [Synthroid] 100 mcg PO HS 03/24/15 05/11/23 History Indapamide [Lozol] 2.5 mg PO HS 02/19/20 05/11/23 History Zolpidem [Ambien] 10 mg PO HS PRN 02/19/20 05/11/23 History traMADol HCL 50 mg PO Q6H PRN 04/13/22 05/11/23 History Tamsulosin [Flomax] 0.4 mg PO HS 04/26/22 05/11/23 History Allergies Allergy/AdvReac Type Severity Reaction Status Date / Time ciprofloxacin [From Cipro] AdvReac Nausea, Verified 05/11/23 21:11 upset stomach Surgical - Exam Vital Signs Temp Pulse Resp BP Pulse Ox 98.1 F 71 20 134/80 96 05/11/23 13:07 05/11/23 13:07 05/11/23 13:07 05/11/23 13:07 05/11/23 13:07 - General well developed, well nourished, no distress - Eyes normal ocular movement, no icteric - ENT no hearing loss, no congestion - Neck no masses, trachea midline - Respiratory normal respiratory effort, clear to auscultation - Abdomen Abdomen: soft, non tender, no guarding, no rigid, no rebound - Integumentary no rash, no abnormal pigmentation - Neurologic no disoriented, no combative - Psychiatric oriented to time, oriented to person, oriented to place, speech is normal, memory intact Results - Labs 05/12/23 11:46 05/12/23 11:46 Abnormal Lab Results - Last 24 Hours (Table) 05/12/23 05/12/23 Range/Units 11:46 11:46 RBC 3.75 L (3.80-5.40) m/uL Hct 33.1 L (34.0-46.0) % Potassium 3.4 L (3.5-5.1) mmol/L Chloride 109 H (98-107) mmol/L BUN 19 H (7-17) mg/dL Calcium 8.2 L (8.4-10.2) mg/dL Diabetes panel 05/12/23 Range/Units 11:46 Sodium 141 (137-145) mmol/L Potassium 3.4 L (3.5-5.1) mmol/L Chloride 109 H (98-107) mmol/L Carbon Dioxide 26 (22-30) mmol/L BUN 19 H (7-17) mg/dL Creatinine 0.54 (0.52-1.04) mg/dL Glucose 96 (74-99) mg/dL Calcium 8.2 L (8.4-10.2) mg/dL Calcium panel 05/12/23 Range/Units 11:46 Calcium 8.2 L (8.4-10.2) mg/dL Pituitary panel 05/12/23 Range/Units 11:46 Sodium 141 (137-145) mmol/L Potassium 3.4 L (3.5-5.1) mmol/L Chloride 109 H (98-107) mmol/L Carbon Dioxide 26 (22-30) mmol/L BUN 19 H (7-17) mg/dL Creatinine 0.54 (0.52-1.04) mg/dL Glucose 96 (74-99) mg/dL Calcium 8.2 L (8.4-10.2) mg/dL Adrenal panel 05/12/23 Range/Units 11:46 Sodium 141 (137-145) mmol/L Potassium 3.4 L (3.5-5.1) mmol/L Chloride 109 H (98-107) mmol/L Carbon Dioxide 26 (22-30) mmol/L BUN 19 H (7-17) mg/dL Creatinine 0.54 (0.52-1.04) mg/dL Glucose 96 (74-99) mg/dL Calcium 8.2 L (8.4-10.2) mg/dL - Imaging CT scan - abdomen: report reviewed, image reviewed CT scan - pelvis: report reviewed, image reviewed Assessment and Plan Assessment: impression: Right renal pelvic stone with coic. History of kidney stones, Probable cystitis Recommendations: I discussed with the patient treatment options. I think she should eventually have treatment for the renal pelvic stone. I would prefer to treat the cystitis first. I think that She would do well with eswl I will see her in the office in a couple of weeks to recheck her urien and then set her up if it is clear. this has been discussed with the patient
[2023-05-12] MEDS ORDERED: hydroCHLOROthiazide 25 MG TAB PO SCH (21:00)
[2023-05-12] MEDS ORDERED: LEVOTHYROXINE 100 MCG TAB PO SCH (21:00)
[2023-05-12] MEDS ORDERED: amLODIPine 5 MG TAB PO SCH (21:00)
[2023-05-12] MEDS ORDERED: ATORVASTATIN 20 MG TAB PO SCH (21:00)
[2023-05-12] MEDS ORDERED: SERTRALINE 100 MG TAB PO SCH (21:00)
== END 2023-05-12 17:33 | disposition home or self-care (01) ==
LOC: EC 13:04 → 5NMEDONC 20:10
PROVIDERS: ADMIT Family Medicine; ATTEND Family Medicine
DX: N13.6 Pyonephrosis (principal); E87.6 Hypokalemia; I10 Essential (primary) hypertension; E03.9 Hypothyroidism, unspecified; F32.A Depression, unspecified; G47.00 Insomnia, unspecified; E66.9 Obesity, unspecified; Z68.29 Body mass index [BMI] 29.0-29.9, adult; Z79.890 Hormone replacement therapy; Z79.899 Other long term (current) drug therapy; Z88.1 Allergy status to other antibiotic agents; Z87.442 Personal history of urinary calculi
CPT/HCPCS: 96376 ×2; 96361 ×2; 96366; 96365; 96375; 99285; 36415; 80053; 80048; 82150; 83690; 83735; 85025 ×2; 81001; 87040; 87086; 87077; 87186; 74176; G0378 ×2; J2270; J2405 ×2; J0696 ×2; J1170 ×3; J1885

== ENCOUNTER 2023-05-24 05:47 | Day surgery (SDC) | payer MEDICAID ==
[2023-05-21 16:29] VITALS: BMI 28.1
--- NOTE | 2023-05-23 17:29 | P.HPIHPCON ---
History of Present Illness H&P Date: 05/23/23 Chief Complaint: Right renal stone This is a 57-year-old female with history of 5 mm right-sided renal pelvis stone. She is symptomatic from her stone. Option of ESWL versus ureteroscopy with holmium laser was discussed with her in detail. She agreed to proceed with a right-sided ureteroscopy with holmium laser, aware the risk which includes but not limited to bleeding, infection, injury to the ureter. Risk of anesthesia was also discussed. She understood all the risk and agreed to proceed Consent for Procedure: I have explained the operation/procedure to the patient, including the risks, benefits, side effects, alternative therapies (including not receiving the proposed treatment or service), the likelihood of the patient achieving his/her goals, and potential recuperation problems for the procedure/sedation/analgesia, as well as any blood products, if indicated. I also explained to the patient the risks, benefits and side effects of the alternatives, as well as the risks related to not receiving the proposed procedure, care, treatment, or services. 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 History of Any Multi-Drug Resistant Organisms: None Reported Past Surgical History: Cholecystectomy, Uterine Ablation Additional Past Surgical History / Comment(s): Right ESWL in 2011, Left Percutaneous Nephrolithotomy in May 2013, Left Ureteroscopy with Holmium Laser Lithotripsy in June 2013, NOVOSURE. Colonoscopy approximately 2015, bilateral ureteral stents placed 04/17/[address] Ryan Past Anesthesia/Blood Transfusion Reactions: No Reported Reaction Smoking Status: Never smoker - Past Family History Father Family Medical History: Coronary Artery Disease (CAD) Additional Family Medical History / Comment(s): Cancer type uncertain. Mother Family Medical History: Cancer Additional Family Medical History / Comment(s): AORTIC ANEURYSM. Breast cancer. Brother(s) Family Medical History: Cancer Additional Family Medical History / Comment(s): Multiple myeloma. Medications and Allergies Home Medications Medication Instructions Recorded Confirmed Type Sertraline [Zoloft] 200 mg PO HS 06/18/13 05/21/23 History amLODIPine [Norvasc] 5 mg PO HS 06/18/13 05/21/23 History Simvastatin [Zocor] 40 mg PO HS 90 Days tab 07/01/13 05/21/23 Rx Levothyroxine Sodium [Synthroid] 100 mcg PO HS 03/24/15 05/21/23 History Indapamide [Lozol] 2.5 mg PO HS 02/19/20 05/21/23 History Zolpidem [Ambien] 10 mg PO HS PRN 02/19/20 05/21/23 History traMADol HCL 50 mg PO Q6H PRN 04/13/22 05/21/23 History Tamsulosin [Flomax] 0.4 mg PO HS 04/26/22 05/21/23 History Sulfamethox-Tmp 800-160Mg [Bactrim 1 tab PO Q12HR 05/21/23 05/21/23 History DS 800-160 mg] Allergies Allergy/AdvReac Type Severity Reaction Status Date / Time ciprofloxacin [From Cipro] AdvReac Nausea, Verified 05/21/23 15:35 upset stomach Surgical - Exam - General no distress, moderate pain - Eyes normal ocular movement, no pale, no icteric - Respiratory normal expansion, normal respiratory effort - Abdomen Abdomen: soft, non tender Assessment and Plan Assessment: OR for right-sided ureteroscopy, holmium laser lithotripsy, stone basketing and stent insertion
[2023-05-24] MEDS ORDERED: ONDANSETRON 4 MG/2 ML VIAL IVP ONE (06:40)
[2023-05-24] MEDS ORDERED: droPERidol 5 MG/2 ML VIAL IVP ONE (06:40)
[2023-05-24] MEDS ORDERED: LIDOCAINE 1% (10MG/ML) FOR IV START INTRADERMA PRN (06:40)
[2023-05-24] MEDS ORDERED: DEXAMETHASONE SOD PHOSPHATE 4 MG/ML 1 ML VIAL IV ONE (06:40)
[2023-05-24] MEDS: LACTATED RINGERS 1,000 ML IV SCH (07:04)
[2023-05-24] MEDS: DEXAMETHASONE SOD PHOSPHATE 4 MG/ML 1 ML VIAL IVP ONE (07:10)
[2023-05-24] MEDS: ONDANSETRON 4 MG/2 ML VIAL IVP ONE (07:10)
[2023-05-24] MEDS ORDERED: fentaNYL (PF) 50 MCG/ML 2 ML AMP ONE (07:28)
[2023-05-24] MEDS ORDERED: PROPOFOL 10 MG/ML 20 ML VIAL IV ONE (07:28)
[2023-05-24] MEDS ORDERED: ePHEDrine 50 MG/ML 1 ML VIAL ONE (07:28)
[2023-05-24] MEDS ORDERED: GLYCOPYRROLATE 0.2 MG/ML 2 ML VIAL ONE (07:28)
[2023-05-24] MEDS ORDERED: MIDAZOLAM 2 MG/2 ML VIAL ONE (07:28)
[2023-05-24] MEDS ORDERED: LIDOCAINE 1% INJ 10MG/ML (20 ML MDV) ONE (07:28)
[2023-05-24] MEDS: IOPAMIDOL-370 100ML BTL MISCELLANE ONE (07:55)
--- NOTE | 2023-05-24 08:36 | XR ---
EXAMINATION TYPE: XR KUB DATE OF EXAM: 05/24/2023 6:16 AM CLINICAL INDICATION:Female, 57 years old with history of N20.0 right renal stone; [facility] COMPARISON: None. TECHNIQUE: One radiographic view of the abdomen was obtained. FINDINGS: The bowel gas pattern is nonspecific without dilated loops of small or large bowel. There i s no evidence for organomegaly or pneumoperitoneum. The osseous structures are intact. Bilateral re nal calculi measuring up to 3 mm on the right and 4 mm on the left. Fecal material and gas are demons trated throughout the colon and rectum. Right upper quadrant cholecystectomy clips. IMPRESSION: 1. Bilateral renal calculi. 2. Nonspecific bowel gas pattern without radiographic evidence for acute process.
[2023-05-24] MEDS: HYDROmorphone 0.5 MG/0.5 ML SYRINGE IVP PRN (08:44)
--- NOTE | 2023-05-24 09:12 | FL ---
EXAMINATION TYPE: FL urography retrograde Intraoperative/procedural fluoroscopic services were provid ed. Total fluoroscopy time is 4.5 seconds with a total of 10 submitted images to PACS. Please see the operative/procedural note for further details. DAP: 5.543 Gycm2
[2023-05-24 09:20] VITALS: TEMP 97.3
[2023-05-24 10:03] VITALS: BP 139/85; PULSE 66; RESP 20
--- NOTE | 2023-05-24 16:47 | P.OP ---
Date of Procedure: 05/24/23 Preoperative Diagnosis: Right renal stone Postoperative Diagnosis: Same Procedure(s) Performed: Cystoscopy, right ureteroscopy, holmium laser lithotripsy, stone basketing and stent insertion Implants: 6 Ukrainian by 24 cm stent left on a string and taped to the patient THIGH Anesthesia: VINICIUS Surgeon: Wilian Ryan Estimated Blood Loss (ml): 5 Pathology: other (right renal stone) Condition: stable Disposition: PACU Indications for Procedure: This is a 57-year-old female with history of 5 mm right-sided renal pelvis stone. She is symptomatic from her stone. Option of ESWL versus ureteroscopy with holmium laser was discussed with her in detail. She agreed to proceed with a right-sided ureteroscopy with holmium laser, aware the risk which includes but not limited to bleeding, infection, injury to the ureter. Risk of anesthesia was also discussed. She understood all the risk and agreed to proceed Operative Findings: Right-sided renal pelvis stone Description of Procedure: Patient was brought to the operating room, general anesthesia was induced. She was prepped and draped in sterile fashion and placed in dorsolithotomy position. Cystoscopy fitted with a 21 Ukrainian sheath was inserted per urethra, cystoscopy was performed which showed no abnormality within the bladder. Attention was then carried to the right ureteral orifice which was intubated with a 6 Fr open- ended catheter, retrograde pyelogram was performed on that side which showed no filling defect along the course of the ureter, there was a large filling defect within the renal pelvis. Next a sensor wire was advanced through the catheter and the catheter was removed with the wire in place. Next under fluoroscopy and 1113 Ukrainian access sheath was passed over the wire into the proximal ureter. The flexible ureteroscope was inserted through the access sheath, renoscopy was performed showed a large stone in the renal pelvis. Using the holmium laser the stone was dusted, repeat renoscopy showed no sizable fragments or injury to the kidney. Pullback ureteroscopy was performed which showed no injury to the ureter or any ureteral stones. As ureteroscope was withdrawn and a sensor wire was advanced through. Ureteral stent was passed over the wire, the proximal curl was visualized on fluoroscopy and the distal curl was visualized using the cystoscope. Next ureteral stent was left on a string and taped to the patient's thigh. Patient was awakened from anesthesia and taken to recovery in stable condition
== END 2023-05-24 09:53 | disposition home or self-care (01) ==
LOC: OR 05:47
PROVIDERS: ATTEND Urology
DX: N20.0 Calculus of kidney (principal); I10 Essential (primary) hypertension; E78.5 Hyperlipidemia, unspecified; E03.9 Hypothyroidism, unspecified; Z90.49 Acquired absence of other specified parts of digestive tract; Z80.49 Family history of malignant neoplasm of other genital organs; Z80.3 Family history of malignant neoplasm of breast; Z79.890 Hormone replacement therapy; Z79.899 Other long term (current) drug therapy; Z88.1 Allergy status to other antibiotic agents
CPT/HCPCS: 84132; 82365; 74420; 74018; 52356; C2625; C1758; C1769; J2250; J1100; J0690; J2405; J2001; J3010; J2704; J1170; Q9967

== ENCOUNTER 2023-05-25 02:58 | Observation (INO) | payer MEDICAID ==
[2023-05-25] MEDS: SODIUM CHLORIDE 0.9% 500 ML 500 ML IV STA (03:46)
[2023-05-25] MEDS: ONDANSETRON 4 MG/2 ML VIAL IVP STA (03:51)
[2023-05-25] MEDS: MORPHINE SULFATE 4 MG/ML SYRINGE IV STA (03:51)
[2023-05-25 04:38] LABS: ALT 30 U/L (4-34); AST 33 U/L (14-36); African American GFR (CKD) 75 (>60 ml/min/1.73 sqM); Albumin 4.5 g/dL (3.5-5.0); Alkaline Phosphatase 60 U/L (38-126); Amylase 86 U/L (30-110); Anion Gap 12 mmol/L; Blood Urea Nitrogen 26 mg/dL (7-17); Calcium 9.3 mg/dL (8.4-10.2); Carbon Dioxide 24 mmol/L (22-30); Chloride 102 mmol/L (98-107); Glucose 135 mg/dL (74-99); Lipase 60 U/L (23-300); Non-African American GFR(CKD) 65 (>60 ml/min/1.73 sqM); Potassium 3.2 mmol/L (3.5-5.1); Sodium 138 mmol/L (137-145); Total Bilirubin 0.6 mg/dL (0.2-1.3); Total Protein 7.3 g/dL (6.3-8.2)
[2023-05-25 04:40] LABS: Amorphous Sediment,Urine Rare /hpf; Appearance,Urine Turbid (Clear); Bilirubin,Urine Negative (Negative); Blood,Urine Large (Negative); Color,Urine Yellow; Glucose,Urine (UA) Negative (Negative); Ketones,Urine Negative (Negative); Leukocyte Esterase,Urine Large (Negative); Mucus,Urine Few /hpf; Nitrite,Urine Negative (Negative); Protein,Urine 2+ (Negative); RBC,Urine >182 /hpf (0-5); Specific Gravity,Urine 1.022 (1.001-1.035); Squamous Epithelial Cell,Urine 1 /hpf (0-4); Urobilinogen,Urine <2.0 mg/dL (<2.0); WBC,Urine 167 /hpf (0-5)
[2023-05-25 04:55] LABS: C Reactive Protein <0.5 mg/dL (<1.0)
[2023-05-25 04:59] LABS: Basophils % (A) 0 %; Eosinophils # (A) 0.1 k/uL (0-0.7); Eosinophils % (A) 1 %; HCT 37.6 % (34.0-46.0); HGB 12.8 gm/dL (11.4-16.0); Lymphocytes # (A) 1.4 k/uL (1.0-4.8); Lymphocytes % (A) 9 %; MCH 29.6 pg (25.0-35.0); MCHC 33.9 g/dL (31.0-37.0); MCV 87.1 fL (80.0-100.0); Mean Platelet Volume 11.2; Monocytes # (A) 0.8 k/uL (0-1.0); Monocytes % (A) 5 %; Neutrophils # (A) 13.6 k/uL (1.3-7.7); Neutrophils % (A) 85 %; Platelet Count 165 k/uL (150-450); RBC 4.32 m/uL (3.80-5.40); RDW 13.9 % (11.5-15.5)
[2023-05-25 06:21] LABS: Large Platelets Present
[2023-05-25] MEDS: HYDROmorphone 1 MG/ML 1 ML SYRINGE IVP STA (06:21)
[2023-05-25 06:22] LABS: Ovalocytes Present
[2023-05-25] MEDS ORDERED: ACETAMINOPHEN TAB 325 MG TAB PO PRN (06:51)
[2023-05-25] MEDS ORDERED: NALOXONE 0.4 MG/ML 1 ML VIAL IV PRN (06:51)
--- NOTE | 2023-05-25 07:46 | ED ---
Abdominal Pain HPI - General Chief Complaint: Recheck/Abnormal Lab/Rx Stated Complaint: Post Op pain Time Seen by Provider: 05/25/23 03:13 Source: patient Mode of arrival: ambulatory Limitations: no limitations - History of Present Illness Initial Comments: Patient is a 57-year-old woman who presents to have evaluation of flank pain. Patient states that she had lithotripsy performed with Dr. Ryan, for kidney stone. She did have relief initially. The patient states that she accidentally pulled out the urinary stent, and then after that she started having worsening of the pain. Patient also notes she is passing blood with her urine. She has h ad nausea and vomiting. Patient has not noted fevers. She states she was prescribed ciprofloxacin but has not tolerated the medication. MD Complaint: flank pain -: days(s) Location: R flank Radiation: none Migration to: no migration Severity: severe Quality: sharp Consistency: constant Improves With: nothing Worsens With: nothing Associated Symptoms: nausea, vomiting - Related Data Home Medications Medication Instructions Recorded Confirmed Sertraline [Zoloft] 200 mg PO HS 06/18/13 05/24/23 amLODIPine [Norvasc] 5 mg PO HS 06/18/13 05/24/23 Levothyroxine Sodium [Synthroid] 100 mcg PO HS 03/24/15 05/24/23 Indapamide [Lozol] 2.5 mg PO HS 02/19/20 05/24/23 Zolpidem [Ambien] 10 mg PO HS PRN 02/19/20 05/24/23 traMADol HCL 50 mg PO Q6H PRN 04/13/22 05/24/23 Tamsulosin [Flomax] 0.4 mg PO HS 04/26/22 05/24/23 Sulfamethox-Tmp 800-160Mg [Bactrim 1 tab PO Q12HR 05/21/23 05/24/23 DS 800-160 mg] Previous Rx's Medication Instructions Recorded Simvastatin [Zocor] 40 mg PO HS 90 Days tab 07/01/13 Ketorolac [Toradol] 10 mg PO Q6HR PRN #15 tab 05/24/23 Allergies Allergy/AdvReac Type Severity Reaction Status Date / Time ciprofloxacin [From Cipro] AdvReac Nausea, Verified 05/25/23 03:02 upset stomach Review of Systems ROS Statement: Those systems with pertinent positive or pertinent negative responses have been documented in the HPI. ROS Other: All systems not noted in ROS Statement are negative. Constitutional: Denies: fever, chills, weakness Respiratory: Denies: cough, dyspnea Cardiovascular: Denies: chest pain, palpitations, edema Gastrointestinal: Reports: abdominal pain, nausea, vomiting. 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 History of Any Multi-Drug Resistant Organisms: None Reported Past Surgical History: Cholecystectomy, Uterine Ablation Additional Past Surgical History / Comment(s): Right ESWL in 2011, Left Percutaneous Nephrolithotomy in May 2013, Left Ureteroscopy with Holmium Laser Lithotripsy in June 2013, NOVOSURE. Colonoscopy approximately 2015, bilateral ureteral stents placed 04/17/[address] Ryan Past Anesthesia/Blood Transfusion Reactions: No Reported Reaction Past Psychological History: Depression Smoking Status: Never smoker Past Alcohol Use History: None Reported Past Drug Use History: None Reported - Past Family History Father Family Medical History: Coronary Artery Disease (CAD) Additional Family Medical History / Comment(s): Cancer type uncertain. Mother Family Medical History: Cancer Additional Family Medical History / Comment(s): AORTIC ANEURYSM. Breast cancer. Brother(s) Family Medical History: Cancer Additional Family Medical History / Comment(s): Multiple myeloma. General Exam Limitations: no limitations General appearance: alert, in no apparent distress Head exam: Present: atraumatic, normocephalic Eye exam: Present: normal appearance. Absent: scleral icterus, conjunctival injection Neck exam: Present: normal inspection Respiratory exam: Present: normal lung sounds bilaterally. Absent: respiratory distress, wheezes, rales, rhonchi, stridor, accessory muscle use Cardiovascular Exam: Present: regular rate, normal rhythm, normal heart sounds. Absent: systolic murmur, diastolic murmur, rubs, gallop GI/Abdominal exam: Present: soft. Absent: distended, tenderness, guarding, r ebound, rigid, mass Extremities exam: Present: normal inspection, normal capillary refill. Absent: pedal edema, calf tenderness Back exam: Present: normal inspection, CVA tenderness (R). Absent: CVA tenderness (L) Neurological exam: Present: alert Skin exam: Present: warm, dry, intact, normal color. Absent: rash Course Vital Signs 05/25/23 05/25/23 05/25/23 03:00 06:12 06:57 Temperature 97.4 F L 97.7 F 97.8 F Pulse Rate 67 61 Respiratory 18 16 Rate Blood Pressure 161/82 133/84 O2 Sat by Pulse 96 96 Oximetry Medical Decision Making - Lab Data Result diagrams: 05/25/23 03:35 05/25/23 03:35 Lab Results 05/25/23 05/25/23 05/25/23 Range/Units 03:35 03:35 03:35 WBC 16.0 H (3.8-10.6) k/uL RBC 4.32 (3.80-5.40) m/uL Hgb 12.8 (11.4-16.0) gm/dL Hct 37.6 (34.0-46.0) % MCV 87.1 (80.0-100.0) fL MCH 29.6 (25.0-35.0) pg MCHC 33.9 (31.0-37.0) g/dL RDW 13.9 (11.5-15.5) % Plt Count 165 (150-450) k/uL MPV 11.2 Neutrophils % 85 % Lymphocytes % 9 % Monocytes % 5 % Eosinophils % 1 % Basophils % 0 % Neutrophils # 13.6 H (1.3-7.7) k/uL Lymphocytes # 1.4 (1.0-4.8) k/uL Monocytes # 0.8 (0-1.0) k/uL Eosinophils # 0.1 (0-0.7) k/uL Basophils # 0.0 (0-0.2) k/uL Manual Slide Review Performed Large Platelets Present Ovalocytes Present Sodium (137-145) mmol/L Potassium (3.5-5.1) mmol/L Chloride (98-107) mmol/L Carbon Dioxide (22-30) mmol/L Anion Gap mmol/L BUN (7-17) mg/dL Creatinine (0.52-1.04) mg/dL Est GFR (CKD-EPI)AfAm (>60 ml/min/1.73 sqM) Est GFR (CKD-EPI)NonAf (>60 ml/min/1.73 sqM) Glucose (74-99) mg/dL Plasma Lactic Acid Ran (0.7-2.0) mmol/L Calcium (8.4-10.2) mg/dL Total Bilirubin (0.2-1.3) mg/dL AST (14-36) U/L ALT (4-34) U/L Alkaline Phosphatase (38-126) U/L C-Reactive Protein (<1.0) mg/dL Total Protein (6.3-8.2) g/dL Albumin (3.5-5.0) g/dL Amylase (30-110) U/L Lipase (23-300) U/L Urine Color Yellow Urine Appearance Turbid H (Clear) Urine pH 6.0 (5.0-8.0) Ur Specific [place] 1.022 (1.001-1.035) Urine Protein 2+ H (Negative) Urine Glucose (UA) Negative (Negative) Urine Ketones Negative (Negative) Urine Blood Large H (Negative) Urine Nitrite Negative (Negative) Urine Bilirubin Negative (Negative) Urine Urobilinogen <2.0 (<2.0) mg/dL Ur Leukocyte Esterase Large H (Negative) Urine RBC >182 H (0-5) /hpf Urine WBC 167 H (0-5) /hpf Ur Squamous Epith Cells 1 (0-4) /hpf Amorphous Sediment Rare H (None) /hpf Urine Mucus Few H (None) /hpf Urine HCG, Qual Not Detected (Not Detectd) 05/25/23 05/25/23 Range/Units 03:35 03:35 WBC (3.8-10.6) k/uL RBC (3.80-5.40) m/uL Hgb (11.4-16.0) gm/dL Hct (34.0-46.0) % MCV (80.0-100.0) fL MCH (25.0-35.0) pg MCHC (31.0-37.0) g/dL RDW (11.5-15.5) % Plt Count (150-450) k/uL MPV Neutrophils % % Lymphocytes % % Monocytes % % Eosinophils % % Basophils % % Neutrophils # (1.3-7.7) k/uL Lymphocytes # (1.0-4.8) k/uL Monocytes # (0-1.0) k/uL Eosinophils # (0-0.7) k/uL Basophils # (0-0.2) k/uL Manual Slide Review Large Platelets Ovalocytes Sodium 138 (137-145) mmol/L Potassium 3.2 L (3.5-5.1) mmol/L Chloride 102 (98-107) mmol/L Carbon Dioxide 24 (22-30) mmol/L Anion Gap 12 mmol/L BUN 26 H (7-17) mg/dL Creatinine 0.98 (0.52-1.04) mg/dL Est GFR (CKD-EPI)AfAm 75 (>60 ml/min/1.73 sqM) Est GFR (CKD-EPI)NonAf 65 (>60 ml/min/1.73 sqM) Glucose 135 H (74-99) mg/dL Plasma Lactic Acid Ran 1.1 (0.7-2.0) mmol/L Calcium 9.3 (8.4-10.2) mg/dL Total Bilirubin 0.6 (0.2-1.3) mg/dL AST 33 (14-36) U/L ALT 30 (4-34) U/L Alkaline Phosphatase 60 (38-126) U/L C-Reactive Protein <0.5 (<1.0) mg/dL Total Protein 7.3 (6.3-8.2) g/dL Albumin 4.5 (3.5-5.0) g/dL Amylase 86 (30-110) U/L Lipase 60 (23-300) U/L Urine Color Urine Appearance (Clear) Urine pH (5.0-8.0) Ur Specific [place] (1.001-1.035) Urine Protein (Negative) Urine Glucose (UA) (Negative) Urine Ketones (Negative) Urine Blood (Negative) Urine Nitrite (Negative) Urine Bilirubin (Negative) Urine Urobilinogen (<2.0) mg/dL Ur Leukocyte Esterase (Negative) Urine RBC (0-5) /hpf Urine WBC (0-5) /hpf Ur Squamous Epith Cells (0-4) /hpf Amorphous Sediment (None) /hpf Urine Mucus (None) /hpf Urine HCG, Qual (Not Detectd) Disposition Clinical Impression: Intractable pain Disposition: ADMITTED IP TO THIS HOSP Condition: Good Is patient prescribed a controlled substance at d/c from ED?: No
--- NOTE | 2023-05-25 09:11 | P.GSHP ---
History of Present Illness H&P Date: 05/25/23 Chief Complaint: Right flank pain This is a 57-year-old female status post right-sided ureteroscopy with holmium laser yesterday for a right-sided renal pelvis stone. Surgery was uncomplicated she was discharged home following her procedure with a stent on a string. Since being home she has been having intractable flank pain associated with nausea and vomiting. She has been experiencing gross hematuria but denies any dysuria. Does have history of recurrent kidney stones. In the ER because she continued to have persistent pain requiring IV pain medications. Her stent this morning did accidentally get pulled out she indicated. - Constitutional Constitutional: Denies chills, Denies fever - EENT Ears, nose, mouth and throat: Denies headache, Denies sore throat - Cardiovascular Cardiovascular: Denies chest pain, Denies shortness of breath - Respiratory Respiratory: Denies cough, Denies 7 - Gastrointestinal Gastrointestinal: Reports nausea, Reports vomiting - Genitourinary (Female) Genitourinary: Denies dysuria, Denies hematuria Past Medical History Past Medical History: Hyperlipidemia, Hypertension, Thyroid Disorder Additional Past Medical History / Comment(s): recent admission April 2023 pyelonephritis,Recurrent Urolithiasis,hypothyroidism,Kidney 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 History of Any Multi-Drug Resistant Organisms: None Reported Past Surgical History: Cholecystectomy, Uterine Ablation Additional Past Surgical History / Comment(s): Right ESWL in 2011, Left Percutaneous Nephrolithotomy in May 2013, Left Ureteroscopy with Holmium Laser Lithotripsy in June 2013, NOVOSURE. Colonoscopy approximately 2015, bilateral ureteral stents placed 04/17/[address] Ryan Past Anesthesia/Blood Transfusion Reactions: No Reported Reaction Past Psychological History: Depression Smoking Status: Never smoker Past Alcohol Use History: None Reported Past Drug Use History: None Reported - Past Family History Father Family Medical History: Coronary Artery Disease (CAD) Additional Family Medical History / Comment(s): Cancer type uncertain. Mother Family Medical History: Cancer Additional Family Medical History / Comment(s): AORTIC ANEURYSM. Breast cancer. Brother(s) Family Medical History: Cancer Additional Family Medical History / Comment(s): Multiple myeloma. Medications and Allergies Home Medications Medication Instructions Recorded Confirmed Type Sertraline [Zoloft] 200 mg PO HS 06/18/13 05/25/23 History amLODIPine [Norvasc] 5 mg PO HS 06/18/13 05/25/23 History Simvastatin [Zocor] 40 mg PO HS 90 Days tab 07/01/13 05/25/23 Rx Levothyroxine Sodium [Synthroid] 100 mcg PO HS 03/24/15 05/25/23 History Indapamide [Lozol] 2.5 mg PO HS 02/19/20 05/25/23 History Zolpidem [Ambien] 10 mg PO HS PRN 02/19/20 05/25/23 History traMADol HCL 50 mg PO TID PRN 04/13/22 05/25/23 History Tamsulosin [Flomax] 0.4 mg PO HS 04/26/22 05/25/23 History Sulfamethox-Tmp 800-160Mg [Bactrim 1 tab PO Q12HR 05/21/23 05/25/23 History DS 800-160 mg] Ketorolac [Toradol] 10 mg PO Q6HR PRN #15 tab 05/24/23 05/25/23 Rx Ondansetron [Zofran] 4 mg PO Q8HR PRN 05/25/23 05/25/23 History Allergies Allergy/AdvReac Type Severity Reaction Status Date / Time ciprofloxacin [From Cipro] AdvReac Nausea, Verified 05/25/23 08:44 upset stomach Surgical - Exam Vital Signs Temp Pulse Resp BP Pulse Ox 97.4 F L 67 18 161/82 96 05/25/23 03:00 05/25/23 03:00 05/25/23 03:00 05/25/23 03:00 05/25/23 03:00 - General no distress, moderate pain - Eyes normal ocular movement, no pale - ENT normal nares, normal mucosa - Respiratory normal expansion, normal respiratory effort - Abdomen Abdomen: soft, non tender - Psychiatric oriented to time, oriented to person, oriented to place Results - Labs 05/25/23 03:35 05/25/23 03:35 Abnormal Lab Results - Last 24 Hours (Table) 05/25/23 05/25/23 05/25/23 Range/Units 03:35 03:35 03:35 WBC 16.0 H (3.8-10.6) k/uL Neutrophils # 13.6 H (1.3-7.7) k/uL Potassium 3.2 L (3.5-5.1) mmol/L BUN 26 H (7-17) mg/dL Glucose 135 H (74-99) mg/dL Urine Appearance Turbid H (Clear) Urine Protein 2+ H (Negative) Urine Blood Large H (Negative) Ur Leukocyte Esterase Large H (Negative) Urine RBC >182 H (0-5) /hpf Urine WBC 167 H (0-5) /hpf Amorphous Sediment Rare H (None) /hpf Urine Mucus Few H (None) /hpf Diabetes panel 05/25/23 Range/Units 03:35 Sodium 138 (137-145) mmol/L Potassium 3.2 L (3.5-5.1) mmol/L Chloride 102 (98-107) mmol/L Carbon Dioxide 24 (22-30) mmol/L BUN 26 H (7-17) mg/dL Creatinine 0.98 (0.52-1.04) mg/dL Glucose 135 H (74-99) mg/dL Calcium 9.3 (8.4-10.2) mg/dL AST 33 (14-36) U/L ALT 30 (4-34) U/L Alkaline Phosphatase 60 (38-126) U/L Total Protein 7.3 (6.3-8.2) g/dL Albumin 4.5 (3.5-5.0) g/dL Calcium panel 05/25/23 Range/Units 03:35 Calcium 9.3 (8.4-10.2) mg/dL Albumin 4.5 (3.5-5.0) g/dL Pituitary panel 05/25/23 Range/Units 03:35 Sodium 138 (137-145) mmol/L Potassium 3.2 L (3.5-5.1) mmol/L Chloride 102 (98-107) mmol/L Carbon Dioxide 24 (22-30) mmol/L BUN 26 H (7-17) mg/dL Creatinine 0.98 (0.52-1.04) mg/dL Glucose 135 H (74-99) mg/dL Calcium 9.3 (8.4-10.2) mg/dL Adrenal panel 05/25/23 Range/Units 03:35 Sodium 138 (137-145) mmol/L Potassium 3.2 L (3.5-5.1) mmol/L Chloride 102 (98-107) mmol/L Carbon Dioxide 24 (22-30) mmol/L BUN 26 H (7-17) mg/dL Creatinine 0.98 (0.52-1.04) mg/dL Glucose 135 H (74-99) mg/dL Calcium 9.3 (8.4-10.2) mg/dL Total Bilirubin 0.6 (0.2-1.3) mg/dL AST 33 (14-36) U/L ALT 30 (4-34) U/L Alkaline Phosphatase 60 (38-126) U/L Total Protein 7.3 (6.3-8.2) g/dL Albumin 4.5 (3.5-5.0) g/dL Assessment and Plan Assessment: Status post right ureteroscopy with holmium laser, admitted to the hospital with intractable pain. Stent fell out this morning. Reviewed her lab work, elevated white count and her urinalysis is consistent with postoperative ureteroscopy finding. -Will continue with IV fluids -Continue with Bactrim -Pain control
[2023-05-25] MEDS ORDERED: traMADol 50 MG TAB PO PRN (09:21)
[2023-05-25] MEDS: SODIUM CHLORIDE 0.9% 1,000 ML IV SCH (10:35)
[2023-05-25] MEDS: HYDROmorphone 1 MG/ML 1 ML SYRINGE IVP PRN (10:36)
[2023-05-25] MEDS: ONDANSETRON 4 MG/2 ML VIAL IVP PRN (10:38)
[2023-05-25] MEDS: SULFAMETHOX-TMP 80-16MG/ML 320 MG in DEXTROSE 5% IN WATER 500 ML IVPB SCH (10:38)
[2023-05-25] MEDS: KETOROLAC 15 MG/ML 1 ML VIAL IVP SCH (13:42)
[2023-05-25] MEDS: TAMSULOSIN 0.4 MG CAP.ER.24H PO SCH (20:50)
[2023-05-25] MEDS: ATORVASTATIN 20 MG TAB PO SCH (20:50)
[2023-05-25] MEDS: LEVOTHYROXINE 100 MCG TAB PO SCH (20:50)
[2023-05-25] MEDS: hydroCHLOROthiazide 25 MG TAB PO SCH (20:50)
[2023-05-25] MEDS: SERTRALINE 100 MG TAB PO SCH (20:50)
[2023-05-25] MEDS: amLODIPine 5 MG TAB PO SCH (20:50)
[2023-05-25] MEDS: ZOLPIDEM 5 MG TAB PO PRN (20:53)
[2023-05-25 21:54] VITALS: RESP 16
[2023-05-26 09:48] VITALS: BP 129/82; PULSE 60; TEMP 97.9
[2023-05-26 10:34] LABS: ALT 20 U/L (8-44); AST 20 U/L (13-35); Albumin 4.1 g/dL (3.8-4.9); Albumin/Globulin Ratio 1.95 Ratio (1.60-3.17); Alkaline Phosphatase 53 U/L (41-126); Blood Urea Nitrogen 10.4 mg/dL (9.0-27.0); Calcium 8.5 mg/dL (8.7-10.3); Chloride 104 mmol/L (96-109); Globulin 2.1 g/dL (1.6-3.3); Glucose 86 mg/dL (70-110); Sodium 142 mmol/L (135-145); Total Bilirubin 0.3 mg/dL (0.3-1.2); Total Protein 6.2 g/dL (6.2-8.2); Uric Acid 2.9 mg/dL (2.9-7.7)
--- NOTE | 2023-05-26 10:35 | P.DS ---
Providers Date of admission: 05/25/23 06:53 Attending physician: Wilian Ryan MD Primary care physician: [facility] Hospital Course: This is a 57-year-old female admitted to the hospital with intractable stent discomfort following ureteroscopy with holmium laser on May 23. Stent was removed on May 24 by the patient accidentally. Following stent removal her pain did improve significantly. She was discharged home on May 25, at time of discharge she was tolerating a diet, ambulating, and pain was controlled Patient Condition at Discharge: Good Plan - Discharge Summary New Discharge Prescriptions: New Sulfamethox-Tmp 800-160Mg [Bactrim DS 800-160 mg] 1 tab PO Q12HR #10 tab No Action amLODIPine [Norvasc] 5 mg PO HS Sertraline [Zoloft] 200 mg PO HS Simvastatin [Zocor] 40 mg PO HS 90 Days tab Levothyroxine Sodium [Synthroid] 100 mcg PO HS Zolpidem [Ambien] 10 mg PO HS PRN PRN Reason: Insomnia Indapamide [Lozol] 2.5 mg PO HS traMADol HCL 50 mg PO TID PRN PRN Reason: Pain Tamsulosin [Flomax] 0.4 mg PO HS Ketorolac [Toradol] 10 mg PO Q6HR PRN #15 tab PRN Reason: Pain Ondansetron [Zofran] 4 mg PO Q8HR PRN PRN Reason: Nausea Sulfamethox-Tmp 800-160Mg [Bactrim DS 800-160 mg] 1 tab PO Q12HR Discharge Medication List Sertraline [Zoloft] 200 mg PO HS 06/18/13 [History] amLODIPine [Norvasc] 5 mg PO HS 06/18/13 [History] Simvastatin [Zocor] 40 mg PO HS 90 Days tab 07/01/13 [Rx] Levothyroxine Sodium [Synthroid] 100 mcg PO HS 03/24/15 [History] Indapamide [Lozol] 2.5 mg PO HS 02/19/20 [History] Zolpidem [Ambien] 10 mg PO HS PRN 02/19/20 [History] traMADol HCL 50 mg PO TID PRN 04/13/22 [History] Tamsulosin [Flomax] 0.4 mg PO HS 04/26/22 [History] Sulfamethox-Tmp 800-160Mg [Bactrim DS 800-160 mg] 1 tab PO Q12HR 05/21/23 [History] Ketorolac [Toradol] 10 mg PO Q6HR PRN #15 tab 05/24/23 [Rx] Ondansetron [Zofran] 4 mg PO Q8HR PRN 05/25/23 [History] Sulfamethox-Tmp 800-160Mg [Bactrim DS 800-160 mg] 1 tab PO Q12HR #10 tab 05/26/23 [Rx]
== END 2023-05-26 11:40 | disposition home or self-care (01) ==
LOC: EC 02:58 → 6NMEDSUR 06:53
PROVIDERS: ADMIT Urology; ATTEND Urology
DX: G89.18 Other acute postprocedural pain (principal); R10.9 Unspecified abdominal pain; Z79.899 Other long term (current) drug therapy; Z79.890 Hormone replacement therapy; I10 Essential (primary) hypertension; E78.5 Hyperlipidemia, unspecified; E03.9 Hypothyroidism, unspecified; R31.0 Gross hematuria; Z88.1 Allergy status to other antibiotic agents
CPT/HCPCS: 96376; 96361 ×2; 96365; 96366 ×2; 96367; 96372; 96375; 99285; 36415; 80053 ×2; 82150; 83605; 83690; 84550; 85025; 86140; 81001; 81025; 83970; G0378 ×2; J2270; J2405 ×2; J1170; J1885 ×2

== ENCOUNTER 2023-06-14 18:10 | Inpatient (IN) | payer MEDICAID ==
--- NOTE | 2023-06-14 18:36 | ED ---
Female Urogenital HPI - General Source: RN notes reviewed <Celia Dockery - Last Filed: 06/14/23 18:32> <Scott Perez - Last Filed: 06/15/23 07:04> - General Stated complaint: Flank Pain Time Seen by Provider: 06/14/23 18:15 - History of Present Illness Initial comments: Quick [id number] female with history of nephrolithiasis presenting with left flank pain x 1 day. Describes the pain as sharp and stabbing. States she had lithotripsy for stones on the right side 3 weeks ago. States this feels similar to previous kidney stones. Denies hematuria, dysuria, urinary frequency. Last CT scan was about 3 weeks ago (Celia Dockery) - Related Data Home Medications Medication Instructions Recorded Confirmed Sertraline [Zoloft] 200 mg PO HS 06/18/13 05/25/23 amLODIPine [Norvasc] 5 mg PO HS 06/18/13 05/25/23 Levothyroxine Sodium [Synthroid] 100 mcg PO HS 03/24/15 05/25/23 Indapamide [Lozol] 2.5 mg PO HS 02/19/20 05/25/23 Zolpidem [Ambien] 10 mg PO HS PRN 02/19/20 05/25/23 traMADol HCL 50 mg PO TID PRN 04/13/22 05/25/23 Tamsulosin [Flomax] 0.4 mg PO HS 04/26/22 05/25/23 Sulfamethox-Tmp 800-160Mg [Bactrim 1 tab PO Q12HR 05/21/23 05/25/23 DS 800-160 mg] Ondansetron [Zofran] 4 mg PO Q8HR PRN 05/25/23 05/25/23 Previous Rx's Medication Instructions Recorded Simvastatin [Zocor] 40 mg PO HS 90 Days tab 07/01/13 Ketorolac [Toradol] 10 mg PO Q6HR PRN #15 tab 05/24/23 Sulfamethox-Tmp 800-160Mg [Bactrim 1 tab PO Q12HR #10 tab 05/26/23 DS 800-160 mg] Allergies Allergy/AdvReac Type Severity Reaction Status Date / Time ciprofloxacin [From Cipro] AdvReac Nausea, Verified 04/26/24 18:43 upset stomach Review of Systems ROS Other: All systems not noted in ROS Statement are negative. <Celia Dockery - Last Filed: 06/14/23 18:32> ROS Other: All systems not noted in ROS Statement are negative. <Scott Perez - Last Filed: 06/15/23 07:04> ROS Statement: Those systems with pertinent positive or pertinent negative responses have been documented in the HPI. 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 History of Any Multi-Drug Resistant Organisms: None Reported Past Surgical History: Cholecystectomy, Uterine Ablation Additional Past Surgical History / Comment(s): Right ESWL in 2011, Left Percutaneous Nephrolithotomy in May 2013, Left Ureteroscopy with Holmium Laser Lithotripsy in June 2013, NOVOSURE. Colonoscopy approximately 2015, bilateral ureteral stents placed 04/17/[address] Ryan Past Anesthesia/Blood Transfusion Reactions: No Reported Reaction Past Psychological History: Depression Smoking Status: Never smoker Past Alcohol Use History: None Reported Past Drug Use History: None Reported - Past Family History Father Family Medical History: Coronary Artery Disease (CAD) Additional Family Medical History / Comment(s): Cancer type uncertain. Mother Family Medical History: Cancer Additional Family Medical History / Comment(s): AORTIC ANEURYSM. Breast cancer. Brother(s) Family Medical History: Cancer Additional Family Medical History / Comment(s): Multiple myeloma. <Celia Dockery - Last Filed: 06/14/23 18:32> General Exam <Celia Dockery - Last Filed: 06/14/23 18:32> Limitations: no limitations General appearance: alert, in no apparent distress Head exam: Present: atraumatic, normocephalic Eye exam: Present: normal appearance. Absent: scleral icterus, conjunctival injection Neck exam: Present: normal inspection, full ROM Respiratory exam: Present: normal lung sounds bilaterally. Absent: respiratory distress, wheezes, rales, rhonchi, stridor, accessory muscle use Cardiovascular Exam: Present: regular rate, normal rhythm, normal heart sounds. Absent: systolic murmur, diastolic murmur, rubs, gallop GI/Abdominal exam: Present: soft. Absent: distended, tenderness, guarding, rebound, rigid, mass Extremities exam: Present: normal inspection, normal capillary refill. Absent: pedal edema, calf tenderness Back exam: Present: normal inspection, CVA tenderness (L). Absent: CVA tenderness (R) Neurological exam: Present: alert Skin exam: Present: warm, dry, intact, normal color. Absent: rash <Scott Perez - Last Filed: 06/15/23 07:04> - General Exam Comments Initial Comments: Visual Physical Exam Vital signs reviewed General: Well-appearing, nontoxic, no acute distress. Head: Normocephalic, atraumatic Eyes: PERRLA, EOMI ENT: Airway patent Chest: Nonlabored breathing Skin: No visual rash, normal skin tone Neuro: Alert and oriented 3 Musculoskeletal: No gross abnormalities (Celia Dockery) Course Vital Signs 06/14/23 06/15/23 18:41 05:29 Temperature 97.7 F Pulse Rate 63 60 Respiratory 18 18 Rate Blood Pressure 140/82 135/78 O2 Sat by Pulse 95 94 L Oximetry Medical Decision Making <Celia Dockery - Last Filed: 06/14/23 18:32> - Lab Data Result diagrams: 06/14/23 18:44 06/14/23 18:44 <Scott Perez - Last Filed: 06/15/23 07:04> - Medical Decision Making I completed the quick note portion of this chart signed Celia Dockery PA-C (Celia Dockery) Patient is a 57-year-old woman with history of kidney stones, presenting with pain that she states is identical to previous stones. The patient's CT does reveal ureterolithiasis with hydronephrosis. She has not had adequate relief of pain spite treatment. Case discussed with Dr. Turpin who will admit patient for pain management and further possible treatment. (Scott Perez) - Lab Data Lab Results 06/14/23 06/14/23 06/14/23 Range/Units 18:44 18:44 18:44 WBC 10.9 H (3.8-10.6) k/uL RBC 4.40 (3.80-5.40) m/uL Hgb 13.0 (11.4-16.0) gm/dL Hct 38.4 (34.0-46.0) % MCV 87.2 (80.0-100.0) fL MCH 29.4 (25.0-35.0) pg MCHC 33.7 (31.0-37.0) g/dL RDW 13.5 (11.5-15.5) % Plt Count 151 (150-450) k/uL MPV 10.5 Neutrophils % 80 % Lymphocytes % 11 % Monocytes % 5 % Eosinophils % 2 % Basophils % 0 % Neutrophils # 8.7 H (1.3-7.7) k/uL Lymphocytes # 1.2 (1.0-4.8) k/uL Monocytes # 0.6 (0-1.0) k/uL Eosinophils # 0.2 (0-0.7) k/uL Basophils # 0.0 (0-0.2) k/uL Sodium 139 (137-145) mmol/L Potassium 3.0 L (3.5-5.1) mmol/L Chloride 102 (98-107) mmol/L Carbon Dioxide 29 (22-30) mmol/L Anion Gap 8 mmol/L BUN 24 H (7-17) mg/dL Creatinine 0.93 (0.52-1.04) mg/dL Est GFR (CKD-EPI)AfAm 81 (>60 ml/min/1.73 sqM) Est GFR (CKD-EPI)NonAf 70 (>60 ml/min/1.73 sqM) Glucose 125 H (74-99) mg/dL Plasma Lactic Acid Ran (0.7-2.0) mmol/L Calcium 10.1 (8.4-10.2) mg/dL Total Bilirubin 0.6 (0.2-1.3) mg/dL AST 29 (14-36) U/L ALT 23 (4-34) U/L Alkaline Phosphatase 74 (38-126) U/L Total Protein 7.2 (6.3-8.2) g/dL Albumin 4.3 (3.5-5.0) g/dL Urine Color Colorless Urine Appearance Cloudy H (Clear) Urine pH 6.5 (5.0-8.0) Ur Specific [place] 1.020 (1.001-1.035) Urine Protein Negative (Negative) Urine Glucose (UA) Negative (Negative) Urine Ketones Negative (Negative) Urine Blood Negative (Negative) Urine Nitrite Negative (Negative) Urine Bilirubin Negative (Negative) Urine Urobilinogen <2.0 (<2.0) mg/dL Ur Leukocyte Esterase Trace H (Negative) Urine RBC 3 (0-5) /hpf Urine WBC 2 (0-5) /hpf Ur Squamous Epith Cells <1 (0-4) /hpf Urine Bacteria Rare H (None) /hpf Urine Mucus Rare H (None) /hpf 06/14/23 Range/Units 18:44 WBC (3.8-10.6) k/uL RBC (3.80-5.40) m/uL Hgb (11.4-16.0) gm/dL Hct (34.0-46.0) % MCV (80.0-100.0) fL MCH (25.0-35.0) pg MCHC (31.0-37.0) g/dL RDW (11.5-15.5) % Plt Count (150-450) k/uL MPV Neutrophils % % Lymphocytes % % Monocytes % % Eosinophils % % Basophils % % Neutrophils # (1.3-7.7) k/uL Lymphocytes # (1.0-4.8) k/uL Monocytes # (0-1.0) k/uL Eosinophils # (0-0.7) k/uL Basophils # (0-0.2) k/uL Sodium (137-145) mmol/L Potassium (3.5-5.1) mmol/L Chloride (98-107) mmol/L Carbon Dioxide (22-30) mmol/L Anion Gap mmol/L BUN (7-17) mg/dL Creatinine (0.52-1.04) mg/dL Est GFR (CKD-EPI)AfAm (>60 ml/min/1.73 sqM) Est GFR (CKD-EPI)NonAf (>60 ml/min/1.73 sqM) Glucose (74-99) mg/dL Plasma Lactic Acid Ran 1.5 (0.7-2.0) mmol/L Calcium (8.4-10.2) mg/dL Total Bilirubin (0.2-1.3) mg/dL AST (14-36) U/L ALT (4-34) U/L Alkaline Phosphatase (38-126) U/L Total Protein (6.3-8.2) g/dL Albumin (3.5-5.0) g/dL Urine Color Urine Appearance (Clear) Urine pH (5.0-8.0) Ur Specific [place] (1.001-1.035) Urine Protein (Negative) Urine Glucose (UA) (Negative) Urine Ketones (Negative) Urine Blood (Negative) Urine Nitrite (Negative) Urine Bilirubin (Negative) Urine Urobilinogen (<2.0) mg/dL Ur Leukocyte Esterase (Negative) Urine RBC (0-5) /hpf Urine WBC (0-5) /hpf Ur Squamous Epith Cells (0-4) /hpf Urine Bacteria (None) /hpf Urine Mucus (None) /hpf Disposition <Celia Dockery - Last Filed: 06/14/23 18:32> Is patient prescribed a controlled substance at d/c from ED?: No <Scott Perez - Last Filed: 06/15/23 07:04> Clinical Impression: Ureteral stone, Intractable pain Disposition: ADMITTED IP TO THIS [facility] Condition: Good
[2023-06-14 20:12] LABS: Basophils % (A) 0 %; Eosinophils # (A) 0.2 k/uL (0-0.7); Eosinophils % (A) 2 %; HCT 38.4 % (34.0-46.0); Lymphocytes # (A) 1.2 k/uL (1.0-4.8); Lymphocytes % (A) 11 %; MCH 29.4 pg (25.0-35.0); MCHC 33.7 g/dL (31.0-37.0); MCV 87.2 fL (80.0-100.0); Mean Platelet Volume 10.5; Monocytes # (A) 0.6 k/uL (0-1.0); Monocytes % (A) 5 %; Neutrophils # (A) 8.7 k/uL (1.3-7.7); Neutrophils % (A) 80 %; Platelet Count 151 k/uL (150-450); RDW 13.5 % (11.5-15.5); WBC 10.9 k/uL (3.8-10.6)
[2023-06-14 20:28] LABS: ALT 23 U/L (4-34); AST 29 U/L (14-36); African American GFR (CKD) 81 (>60 ml/min/1.73 sqM); Albumin 4.3 g/dL (3.5-5.0); Alkaline Phosphatase 74 U/L (38-126); Anion Gap 8 mmol/L; Blood Urea Nitrogen 24 mg/dL (7-17); Calcium 10.1 mg/dL (8.4-10.2); Carbon Dioxide 29 mmol/L (22-30); Chloride 102 mmol/L (98-107); Glucose 125 mg/dL (74-99); Non-African American GFR(CKD) 70 (>60 ml/min/1.73 sqM); Sodium 139 mmol/L (137-145); Total Bilirubin 0.6 mg/dL (0.2-1.3); Total Protein 7.2 g/dL (6.3-8.2)
[2023-06-14 20:32] LABS: Appearance,Urine Cloudy (Clear); Bacteria,Urine Rare /hpf; Bilirubin,Urine Negative (Negative); Blood,Urine Negative (Negative); Color,Urine Colorless; Glucose,Urine (UA) Negative (Negative); Ketones,Urine Negative (Negative); Leukocyte Esterase,Urine Trace (Negative); Mucus,Urine Rare /hpf; Nitrite,Urine Negative (Negative); PH, Urine 6.5 (5.0-8.0); Protein,Urine Negative (Negative); RBC,Urine 3 /hpf (0-5); Squamous Epithelial Cell,Urine <1 /hpf (0-4); Urobilinogen,Urine <2.0 mg/dL (<2.0); WBC,Urine 2 /hpf (0-5)
[2023-06-15] MEDS: ONDANSETRON 4 MG/2 ML VIAL IVP STA (01:31)
[2023-06-15] MEDS: HYDROmorphone 0.5 MG/0.5 ML SYRINGE IVP STA (01:32)
[2023-06-15] MEDS: KETOROLAC 15 MG/ML 1 ML VIAL IVP STA (01:33)
[2023-06-15] MEDS: TAMSULOSIN 0.4 MG CAP.ER.24H PO STA (01:34)
--- NOTE | 2023-06-15 02:24 | CT ---
EXAMINATION TYPE: CT abdomen pelvis wo con CT DLP: 658.9 mGycm, Automated exposure control for dose reduction was used. DATE OF EXAM: 06/14/2023 10:01 PM COMPARISON: None. CLINICAL INDICATION:Female, 57 years old with history of L flank pain; Patient complains of left flan k pain that started this morning. patient vomiting. TECHNIQUE: Axial CT of the abdomen and pelvis. Sagittal and coronal reformats were created on a [employer] workstation. Contrast used: mL of , (none if empty) Oral contrast used: without Oral Contrast (none if empty) FINDINGS: LOWER CHEST: Unremarkable ABDOMEN LIVER: Nothing acute. GALLBLADDER AND BILE DUCTS: The gallbladder is surgically absent. Biliary tree does not appear pathol ogically dilated. PANCREAS: Unremarkable. SPLEEN: Unremarkable. ADRENAL GLANDS: Unremarkable. KIDNEYS AND URETERS: Left kidney appears edematous with perinephric stranding which could represent c alyceal leak. Several punctate calcifications along the periphery of the renal sinus superiorly and a lso several punctate calcifications in the lower pole which might be in a lower pole calyx. There is moderate to severe left-sided hydroureteronephrosis which appears secondary to a 5.5 mm calculus in t he distal ureter a couple centimeters proximal to the UVJ. On the right, there are several punctate calculi scattered throughout the kidney predominantly along the periphery of the renal sinus. Mildly prominent right renal pelvis and slightly patulous right ure ter without clear evidence of an obstructing calculus. There are several small round calcifications w ithin the pelvis bilaterally but these have the appearance of phleboliths. PELVIS BLADDER: Almost empty, does not appear to contain calculi. REPRODUCTIVE: Uterus is present, anteverted and grossly unremarkable. Ovaries are not clearly delinea kiesha. There is no evidence of adnexal mass. ABDOMEN & PELVIS STOMACH AND BOWEL: No evidence of bowel obstruction or pneumatosis. Appendix appears normal. Mild to moderate stool throughout the colon without acute abnormality seen. PERITONEUM/RETROPERITONEUM: No evidence of pneumoperitoneum or free fluid. VASCULATURE: Mild atherosclerotic calcifications are present throughout the abdominal aorta and its b ranches. No evidence of aortic aneurysm. IVC appears normal caliber. LYMPH NODES: No enlarged nodes by CT size criteria. SOFT TISSUE/ABDOMINAL WALL: Unremarkable MUSCULOSKELETAL: Mild degenerative changes without evidence of an acute bony abnormality. IMPRESSION: 1. LEFT kidney appears edematous with perinephric stranding which could represent calyceal leak. 2. Moderate to severe LEFT-sided hydroureteronephrosis which appears secondary to a 5.5 mm calculus in the distal ureter a couple centimeters proximal to the UVJ. 3. Several punctate intrarenal calcifications along the periphery of the LEFT renal sinus. 4. On the right, there are several punctate nonobstructing calculi scattered throughout the kidney p redominantly along the periphery of the renal sinus. 5. Mildly prominent right renal pelvis and slightly patulous right ureter without clear evidence of an obstructing calculus. 6. No evidence of bowel obstruction or free air. Normal appendix.
[2023-06-15] MEDS: HYDROmorphone 1 MG/ML 1 ML SYRINGE IVP STA ×2 (03:43→05:23)
[2023-06-15] MEDS ORDERED: NALOXONE 0.4 MG/ML 1 ML VIAL IV PRN (06:33)
[2023-06-15] MEDS ORDERED: MAG HYDROX/AL HYDROX/SIMETH 30 ML CUP PO PRN (06:33)
[2023-06-15] MEDS ORDERED: ACETAMINOPHEN TAB 325 MG TAB PO PRN (06:33)
[2023-06-15] MEDS: SODIUM CHLORIDE 0.9% 1,000 ML IV SCH (06:51)
[2023-06-15] MEDS: HYDROcodone/APAP 5-325MG 1 EACH TAB PO PRN (08:22)
--- NOTE | 2023-06-15 10:55 | P.GSHP ---
History of Present Illness H&P Date: 06/15/23 57 yo female well known to our office with active caox urolithiasis presents with a one day istory of left flank pain. A ct scan was done in the er and showed a 5.5 mm distal left ureteral stone. She is admitted because of persistent colic. SHe also has multiple tiny renal stones. SHe is afebrile Her urine is not infected. She is admitted for pain control and further evaluation. Her pain is minimal at present on pain medication - Constitutional Constitutional: Denies chills, Denies fever - EENT Eyes: denies blurred vision, denies pain Ears, nose, mouth and throat: Denies headache, Denies sore throat - Cardiovascular Cardiovascular: Denies chest pain, Denies shortness of breath - Respiratory Respiratory: Denies cough, Denies 7 - Gastrointestinal Gastrointestinal: Denies abdominal pain, Denies diarrhea, Denies nausea, Denies vomiting - Genitourinary (Female) Genitourinary: Denies dysuria, Denies hematuria - Genitourinary (Male) Genitourinary: Denies dysuria, Denies hematuria - Musculoskeletal Musculoskeletal: Denies myalgias - Integumentary Integumentary: Denies pruritus, Denies rash - Neurological Neurological: Denies numbness, Denies weakness - Psychiatric Psychiatric: Denies anxiety, Denies depression - Endocrine Endocrine: Denies fatigue, Denies weight change Past Medical History Past Medical History: Hyperlipidemia, Hypertension, Thyroid Disorder Additional Past Medical History / Comment(s): recent admission April 2023 pyelonephritis,Recurrent Urolithiasis,hypothyroidism,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 History of Any Multi-Drug Resistant Organisms: None Reported Past Surgical History: Cholecystectomy, Uterine Ablation Additional Past Surgical History / Comment(s): Right ESWL in 2011, Left Percutaneous Nephrolithotomy in May 2013, Left Ureteroscopy with Holmium Laser Lithotripsy in June 2013, NOVOSURE. Colonoscopy approximately 2015, bilateral ureteral stents placed 04/17/[address] Ryan Past Anesthesia/Blood Transfusion Reactions: No Reported Reaction Past Psychological History: Depression Smoking Status: Never smoker Past Alcohol Use History: None Reported Past Drug Use History: None Reported - Past Family History Father Family Medical History: Coronary Artery Disease (CAD) Additional Family Medical History / Comment(s): Cancer type uncertain. Mother Family Medical History: Cancer Additional Family Medical History / Comment(s): AORTIC ANEURYSM. Breast cancer. Brother(s) Family Medical History: Cancer Additional Family Medical History / Comment(s): Multiple myeloma. Medications and Allergies Home Medications Medication Instructions Recorded Confirmed Type Sertraline [Zoloft] 200 mg PO HS 06/18/13 06/15/23 History amLODIPine [Norvasc] 5 mg PO HS 06/18/13 06/15/23 History Simvastatin [Zocor] 40 mg PO HS 90 Days tab 07/01/13 06/15/23 Rx Levothyroxine Sodium [Synthroid] 100 mcg PO HS 03/24/15 06/15/23 History Indapamide [Lozol] 2.5 mg PO HS 02/19/20 06/15/23 History Zolpidem [Ambien] 10 mg PO HS PRN 02/19/20 06/15/23 History traMADol HCL 50 mg PO TID PRN 04/13/22 06/15/23 History Tamsulosin [Flomax] 0.4 mg PO HS 04/26/22 06/15/23 History Ketorolac [Toradol] 10 mg PO Q6HR PRN #15 tab 05/24/23 06/15/23 Rx Ondansetron [Zofran] 4 mg PO Q8HR PRN 05/25/23 06/15/23 History Allergies Allergy/AdvReac Type Severity Reaction Status Date / Time ciprofloxacin [From Cipro] AdvReac Nausea, Verified 06/15/23 09:15 upset stomach Surgical - Exam Vital Signs Temp Pulse Resp BP Pulse Ox 97.7 F 63 18 140/82 95 06/14/23 18:41 06/14/23 18:41 06/14/23 18:41 06/14/23 18:41 06/14/23 18:41 Results - Labs 06/14/23 18:44 06/14/23 18:44 Abnormal Lab Results - Last 24 Hours (Table) 06/14/23 06/14/23 06/14/23 Range/Units 18:44 18:44 18:44 WBC 10.9 H (3.8-10.6) k/uL Neutrophils # 8.7 H (1.3-7.7) k/uL Potassium 3.0 L (3.5-5.1) mmol/L BUN 24 H (7-17) mg/dL Glucose 125 H (74-99) mg/dL Urine Appearance Cloudy H (Clear) Ur Leukocyte Esterase Trace H (Negative) Urine Bacteria Rare H (None) /hpf Urine Mucus Rare H (None) /hpf Diabetes panel 06/14/23 Range/Units 18:44 Sodium 139 (137-145) mmol/L Potassium 3.0 L (3.5-5.1) mmol/L Chloride 102 (98-107) mmol/L Carbon Dioxide 29 (22-30) mmol/L BUN 24 H (7-17) mg/dL Creatinine 0.93 (0.52-1.04) mg/dL Glucose 125 H (74-99) mg/dL Calcium 10.1 (8.4-10.2) mg/dL AST 29 (14-36) U/L ALT 23 (4-34) U/L Alkaline Phosphatase 74 (38-126) U/L Total Protein 7.2 (6.3-8.2) g/dL Albumin 4.3 (3.5-5.0) g/dL Calcium panel 06/14/23 Range/Units 18:44 Calcium 10.1 (8.4-10.2) mg/dL Albumin 4.3 (3.5-5.0) g/dL Pituitary panel 06/14/23 Range/Units 18:44 Sodium 139 (137-145) mmol/L Potassium 3.0 L (3.5-5.1) mmol/L Chloride 102 (98-107) mmol/L Carbon Dioxide 29 (22-30) mmol/L BUN 24 H (7-17) mg/dL Creatinine 0.93 (0.52-1.04) mg/dL Glucose 125 H (74-99) mg/dL Calcium 10.1 (8.4-10.2) mg/dL Adrenal panel 06/14/23 Range/Units 18:44 Sodium 139 (137-145) mmol/L Potassium 3.0 L (3.5-5.1) mmol/L Chloride 102 (98-107) mmol/L Carbon Dioxide 29 (22-30) mmol/L BUN 24 H (7-17) mg/dL Creatinine 0.93 (0.52-1.04) mg/dL Glucose 125 H (74-99) mg/dL Calcium 10.1 (8.4-10.2) mg/dL Total Bilirubin 0.6 (0.2-1.3) mg/dL AST 29 (14-36) U/L ALT 23 (4-34) U/L Alkaline Phosphatase 74 (38-126) U/L Total Protein 7.2 (6.3-8.2) g/dL Albumin 4.3 (3.5-5.0) g/dL - Imaging CT scan - abdomen: report reviewed, image reviewed CT scan - pelvis: report reviewed, image reviewed Assessment and Plan Assessment: Impression: Left ureteral calculus with colic and obstruction, distal ureter. History of stones. Recommendations: She will be observed in the hospital today. If her colic persist she will be set up for ureteroscopic manipulation on Saturday. At a later date she will need a medical evaluation for stones which has been done in our office. I will probably refer her to a Medical Center for more in detailed evaluation.
[2023-06-15] MEDS: HYDROmorphone 1 MG/ML 1 ML SYRINGE IVP PRN (11:19)
[2023-06-15] MEDS: ONDANSETRON 4 MG/2 ML VIAL IVP PRN (15:43)
[2023-06-15] MEDS: KETOROLAC 15 MG/ML 1 ML VIAL IVP PRN (16:27)
[2023-06-15] MEDS: amLODIPine 5 MG TAB PO SCH (20:52)
[2023-06-15] MEDS: LEVOTHYROXINE 100 MCG TAB PO SCH (20:52)
[2023-06-15] MEDS: hydroCHLOROthiazide 25 MG TAB PO SCH (20:52)
[2023-06-15] MEDS: ATORVASTATIN 20 MG TAB PO SCH (20:52)
[2023-06-15] MEDS: TAMSULOSIN 0.4 MG CAP.ER.24H PO SCH (20:52)
[2023-06-15] MEDS: SERTRALINE 100 MG TAB PO SCH (21:24)
[2023-06-15] MEDS: ZOLPIDEM 5 MG TAB PO PRN (21:24)
--- NOTE | 2023-06-16 10:01 | P.PN ---
Subjective Progress Note Date: 06/16/23 The patient is in the hospital with a left ureteral calculus, distal. She is still having pain. She is requiring IV fluids and pain medication. Objective - Vital Signs Vital signs: Vital Signs Temp 98.0 F 06/16/23 07:50 Pulse 71 06/16/23 07:50 Resp 16 06/16/23 07:50 BP 100/64 06/16/23 07:50 Pulse Ox 94 L 06/16/23 07:50 FiO2 Intake & Output 06/15/23 06/16/23 06/16/23 18:59 06:59 18:59 Weight 83.915 kg Other: Voiding Method Toilet # Voids 1 - Labs CBC & Chem 7: 06/14/23 18:44 06/14/23 18:44 Assessment and Plan Assessment: Impression: Distal left ureteral stone, 5 mm persistent ureteral colic Recommendations: The patient will be given 1 more day to pass this if not we'll set her up for ureteroscopy and laser lithotripsy tomorrow.
[2023-06-17] MEDS: POTASSIUM CHLORIDE 10 MEQ in WATER FOR INJECTION 1 100ML.BAG IVPB SCH (10:31)
[2023-06-17] MEDS: POTASSIUM CHLORIDE ER 20 MEQ TAB.ER PO STA (11:19)
[2023-06-17] MEDS: LACTATED RINGERS 1,000 ML IV ONE (14:03)
[2023-06-17] MEDS: SCOPOLAMINE 1 MG/72 HR PATCH TRANSDERM ONE (14:08)
[2023-06-17] MEDS: ONDANSETRON 4 MG/2 ML VIAL IVP ONE (14:08)
[2023-06-17] MEDS: DEXAMETHASONE SOD PHOSPHATE 4 MG/ML 1 ML VIAL IV ONE (14:08)
[2023-06-17] MEDS ORDERED: HYDROmorphone 0.5 MG/0.5 ML SYRINGE ONE (14:17)
[2023-06-17] MEDS: HYDROmorphone 0.5 MG/0.5 ML SYRINGE IVP ONE ×2 (14:17→16:58)
[2023-06-17] MEDS ORDERED: ceFAZolin 1 GM/50 ML BAG (PMX) ONE (15:58)
[2023-06-17] MEDS ORDERED: LIDOCAINE 1% INJ 10MG/ML (20 ML MDV) ONE (15:58)
[2023-06-17] MEDS ORDERED: PROPOFOL 10 MG/ML 20 ML VIAL IV ONE (15:58)
[2023-06-17] MEDS ORDERED: MIDAZOLAM 2 MG/2 ML VIAL ONE (15:58)
[2023-06-17] MEDS ORDERED: fentaNYL (PF) 50 MCG/ML 2 ML AMP ONE (15:58)
[2023-06-17] MEDS: SODIUM CHLORIDE 0.9% 100 ML with ceFAZolin 2,000 MG IV ONE (16:12)
--- NOTE | 2023-06-17 16:33 | P.OP ---
Date of Procedure: 06/17/23 Preoperative Diagnosis: left ureteral calculus Postoperative Diagnosis: same Procedure(s) Performed: cystoscopy left ureteroscopy with laser lithotripsy Anesthesia: VINICIUS Surgeon: Jonathan Turpin Estimated Blood Loss (ml): 0 Pathology: other (stone) Condition: stable Disposition: PACU Indications for Procedure: patient is 57. She has active urolithiasis. She has a 5 mm distal ureteral stone that she is unable to pass she comes for ureteroscopy and laser lithotripsy Description of Procedure: patient brought to the operating suite. Given a general anesthetic. Placed lithotomy position with a sterile prep and drape. Cystoscopy of the Foroblique lens and 21-Kazakh sheath identifies a normal urethra. The ureteral orifices are normal. The bladder mucosa is unremarkable. A 7-Kazakh mini ureteroscope was passed into the left ureteral orifice up to the stone just proximal intramural tunnel. With the 270 laser probe the stone was broken into tiny fragments and flushed out of the ureter. I then pass a scope up to the iliac vessels and there is no remaining stone. Pullout ureteroscopy does not identify any further stone and the edema at the stone obstruction side is not enough to leave a stent. The ureteroscope was removed. The bladder is drained. Stone was sent to pathology. The patient is awakened and returned recovery room in good condition. Blood loss is negligible. She tolerated procedure well.
--- NOTE | 2023-06-17 17:07 | FL ---
EXAMINATION TYPE: FL guidance operating room Intraoperative/procedural fluoroscopic services were pro vided. Total fluoroscopy time is 1 seconds with a total of 1 submitted images to PACS. Please see the operative/procedural note for further details. DAP: 0.1542 Gycm2
[2023-06-17] MEDS: KETOROLAC 15 MG/ML 1 ML VIAL IVP ONE (17:26)
[2023-06-18 07:59] VITALS: BP 145/75; PULSE 66; RESP 16; TEMP 97.6
--- NOTE | 2023-06-18 11:48 | P.DS ---
Providers Date of admission: 06/15/23 06:36 Attending physician: Jonathan Turpin Primary care physician: [facility] Course: This is a 57-year-old female history of recurrent kidney stones. Presented to the hospital with intractable pain secondary to a 5 mm left-sided ureteral stone. Patient was admitted to the hospital for pain control. Medical expulsive therapy was initially attempted, but patient failed to pass the stone or control her symptoms. She was taken to the OR on June 16 for left-sided ureteroscopy and holmium laser by Dr. Turpin. Please see op note dated June 16 for surgery details. She was discharged home on postop day #1, at time of discharge she was tolerating a diet, ambulating, pain is controlled Patient Condition at Discharge: Good Plan - Discharge Summary New Discharge Prescriptions: New Ketorolac [Toradol] 10 mg PO Q6HR #10 tab Ondansetron [Zofran] 4 mg PO Q8HR PRN #10 tab PRN Reason: Nausea No Action RX: amLODIPine [Norvasc] 5 mg PO HS RX: Sertraline [Zoloft] 200 mg PO HS RX: Simvastatin [Zocor] 40 mg PO HS 90 Days tab RX: Levothyroxine Sodium [Synthroid] 100 mcg PO HS RX: Zolpidem [Ambien] 10 mg PO HS PRN PRN Reason: Insomnia RX: Indapamide [Lozol] 2.5 mg PO HS RX: traMADol HCL 50 mg PO TID PRN PRN Reason: Pain RX: Tamsulosin [Flomax] 0.4 mg PO HS Ketorolac [Toradol] 10 mg PO Q6HR PRN #15 tab PRN Reason: Pain Ondansetron [Zofran] 4 mg PO Q8HR PRN PRN Reason: Nausea Discharge Medication List RX: Sertraline [Zoloft] 200 mg PO HS 06/18/13 [History] RX: amLODIPine [Norvasc] 5 mg PO HS 06/18/13 [History] RX: Simvastatin [Zocor] 40 mg PO HS 90 Days tab 07/01/13 [Rx] RX: Levothyroxine Sodium [Synthroid] 100 mcg PO HS 03/24/15 [History] RX: Indapamide [Lozol] 2.5 mg PO HS 02/19/20 [History] RX: Zolpidem [Ambien] 10 mg PO HS PRN 02/19/20 [History] RX: traMADol HCL 50 mg PO TID PRN 04/13/22 [History] RX: Tamsulosin [Flomax] 0.4 mg PO HS 04/26/22 [History] Ketorolac [Toradol] 10 mg PO Q6HR PRN #15 tab 05/24/23 [Rx] Ondansetron [Zofran] 4 mg PO Q8HR PRN 05/25/23 [History] Ketorolac [Toradol] 10 mg PO Q6HR #10 tab 06/18/23 [Rx] Ondansetron [Zofran] 4 mg PO Q8HR PRN #10 tab 06/18/23 [Rx] Follow up Appointment(s)/Referral(s): Alin Swift Jr, [Primary Care Provider] - 1-2 days Patient Instructions/Handouts: *Surgery [facility] - Scopalamine Patch Instructions
== END 2023-06-18 12:56 | disposition home or self-care (01) | DRG 694 ==
LOC: EC 18:10 → 6NMEDSUR 06-15 06:35 → OBSVTOIN 06-15 06:36 → 6NMEDSUR 06-15 07:03
PROVIDERS: ADMIT Urology; ATTEND Urology
PROC: 0TC78ZZ Extirpation of Matter from Left Ureter, Via Natural or Artificial Opening Endoscopic (ICD-10-PCS; principal; 2023-06-17 08:25)
DX: N13.2 Hydronephrosis with renal and ureteral calculous obstruction (principal); Z87.442 Personal history of urinary calculi; E03.9 Hypothyroidism, unspecified; E78.5 Hyperlipidemia, unspecified; F32.A Depression, unspecified; I10 Essential (primary) hypertension; Z79.890 Hormone replacement therapy; Z79.899 Other long term (current) drug therapy; Z28.310 Unvaccinated for COVID-19; Z28.21 Immunization not carried out because of patient refusal; Z88.1 Allergy status to other antibiotic agents
CPT/HCPCS: 36415; 74176; 80053; 81001; 82365; 83605; 84132; 85025; 96374; 96375; 96376; 99285

== ENCOUNTER → 2024-01-24 | Outpatient (CLI) | payer MEDICAID ==
--- NOTE | 2024-01-24 09:40 | XR ---
EXAMINATION TYPE: XR KUB DATE OF EXAM: 01/24/2024 8:45 AM COMPARISON: 05/24/2023 CLINICAL INDICATION: Female, 58 years old with history of R10.9 UNSPECIFIED ABDOMINAL PAIN; [facility] TECHNIQUE: One radiographic view of the abdomen was obtained. FINDINGS: The bowel gas pattern is nonspecific without dilated loops of small or large bowel. . Fecal material and gas are demonstrated throughout the colon and rectum. There is no evidence for organome kimberly or pneumoperitoneum. The osseous structures are intact. Bilateral renal calculi measuring up t o 5 mm on the right and 7 mm on the left. Calcified granulomas and/or phleboliths in the pelvis. IMPRESSION: 1. Bilateral renal calculi. 2. Nonspecific bowel gas pattern without radiographic evidence for acute process. [facility], , 01/24/2024 9:38 AM
--- NOTE | 2024-01-24 09:41 | XR ---
EXAMINATION TYPE: XR knee limited LT DATE OF EXAM: 01/24/2024 8:45 AM COMPARISON: None CLINICAL INDICATION: Female, 58 years old with history of M25.562 Knee pain; PHH, pain TECHNIQUE: XR knee limited LT 2 views submitted. FINDINGS: No evidence of any acute osseous pathology, soft tissue swelling, or joint effusion is no kiesha. Tricompartmental osteophyte formation involving the femoral condyles, tibial plateau and patella . Mild joint space narrowing. IMPRESSION: 1. No acute osseous pathology. 2. Mild tricompartmental osteoarthritic changes. [facility], , 01/24/2024 9:39 AM
== END | disposition home or self-care (01) ==
LOC: RADXRMAIN 08:29
PROVIDERS: ATTEND Family Medicine
DX: N20.0 Calculus of kidney (principal); M17.12 Unilateral primary osteoarthritis, left knee
CPT/HCPCS: 74018

== ENCOUNTER → 2024-02-01 | Outpatient (CLI) | payer MEDICAID ==
[2024-02-02 07:12] LABS: BUN/Creat Ratio 18.86 Ratio (12.00-20.00); Blood Urea Nitrogen 13.2 mg/dL (9.0-27.0); Calcium 9.2 mg/dL (8.7-10.3); Carbon Dioxide 30.6 mmol/L (21.6-31.8); Chloride 101 mmol/L (96-109); Glucose 100 mg/dL (70-110); Potassium 3.9 mmol/L (3.5-5.5); Sodium 142 mmol/L (135-145)
[2024-02-02 07:45] LABS: HCT 42.2 % (37.2-46.3); HGB 13.8 g/dL (12.0-15.0); MCH 28.9 pg (27.0-32.0); MCHC 32.7 g/dL (32.0-37.0); MCV 88.3 FL (80.0-97.0); NRBC Per 100 WBC 0 X 10*3/uL (0.00-0.01); Platelet Count 182 X 10*3/uL (140-440); RBC 4.78 X 10*6/uL (4.10-5.20); RDW 13.5 % (11.5-14.5); WBC 5.67 X 10*3/uL (4.50-10.00)
[2024-02-02 07:46] LABS: Basophils # (A) 0.05 X 10*3/uL (0.00-0.10); Basophils % (A) 0.9 %; Eosinophils # (A) 0.18 X 10*3/uL (0.04-0.35); Eosinophils % (A) 3.2 %; Lymphocytes # (A) 1.49 X 10*3/uL (0.90-5.00); Lymphocytes % (A) 26.3 %; Monocytes # (A) 0.36 X 10*3/uL (0.20-1.00); Monocytes % (A) 6.3 %; Neutrophils # (A) 3.58 X 10*3/uL (1.80-7.70); Neutrophils % (A) 63.1 %
== END | disposition home or self-care (01) ==
LOC: LABWHC1 09:22
PROVIDERS: ATTEND Urology
DX: Z01.812 Encounter for preprocedural laboratory examination (principal); N20.0 Calculus of kidney
CPT/HCPCS: 36415; 80048; 85025

== ENCOUNTER 2024-02-04 09:55 | Day surgery (SDC) | payer MEDICAID ==
[2024-01-31 15:16] VITALS: BMI 27.8
--- NOTE | 2024-02-04 10:38 | XR ---
EXAMINATION TYPE: XR KUB DATE OF EXAM: 02/04/2024 10:04 AM COMPARISON: 01/24/2024 CLINICAL INDICATION: Female, 58 years old with history of calculus; TECHNIQUE: One radiographic view of the abdomen was obtained. FINDINGS: The bowel gas pattern is nonspecific without dilated loops of small or large bowel. . Fecal material and gas are demonstrated throughout the colon and rectum. There is no evidence for organome kimberly or pneumoperitoneum. The osseous structures are intact. Bilateral renal calculi measuring up t o 5 mm on the right and 7 mm on the left. Multiple consultations in the pelvis likely representing pe lvic phleboliths. Right upper quadrant cholecystectomy clips. IMPRESSION: 1. Bilateral renal calculi. 2. Nonspecific bowel gas pattern without radiographic evidence for acute process. [facility], , 02/04/2024 10:36 AM
[2024-02-04] MEDS ORDERED: LIDOCAINE 1% (10MG/ML) FOR IV START INTRADERMA PRN (10:49)
[2024-02-04] MEDS ORDERED: MIDAZOLAM 2 MG/2 ML VIAL IV PRN (10:49)
[2024-02-04] MEDS: IV FLUID CONTINUATION 1,000 ML IV ONE (11:16)
[2024-02-04] MEDS: DEXAMETHASONE SOD PHOSPHATE 4 MG/ML 1 ML VIAL IV ONE (11:21)
[2024-02-04] MEDS: LACTATED RINGERS 1,000 ML IV SCH (11:21)
[2024-02-04] MEDS: ONDANSETRON 4 MG/2 ML VIAL IVP ONE (11:21)
[2024-02-04] MEDS: fentaNYL (PF) 50 MCG/ML 2 ML AMP IVP PRN (11:21)
--- NOTE | 2024-02-04 12:18 | P.HPIHPCON ---
History of Present Illness H&P Date: 02/04/24 Chief Complaint: bilateral renal stone This is a 58-year-old female with history of recurrent kidney stones. He has been having bilateral flank pain, KUB showed evidence of a 5 mm right-sided renal stone and a 7 mm left-sided renal stone, discussed with her the option of a bilateral ureteroscopy with holmium laser, she is aware of the risk which includes but not limited to bleeding, infection, injury to the ureter Consent for Procedure: I have explained the operation/procedure to the patient, including the risks, benefits, side effects, alternative therapies (including not receiving the proposed treatment or service), the likelihood of the patient achieving his/her goals, and potential recuperation problems for the procedure/sedation/analgesia, as well as any blood products, if indicated. I also explained to the patient the risks, benefits and side effects of the alternatives, as well as the risks related to not receiving the proposed procedure, care, treatment, or services. Past Medical History Past Medical History: Hyperlipidemia, Hypertension, Thyroid Disorder Additional Past Medical History / Comment(s): April 2023 pyelonephritis, kidney infection. Recurrent Urolithiasis. Hypothyroidism. History of Any Multi-Drug Resistant Organisms: None Reported Past Surgical History: Cholecystectomy, Uterine Ablation Additional Past Surgical History / Comment(s): Right ESWL 2011, Left Percutaneous Nephrolithotomy May 2013, Left Ureteroscopy with Holmium Laser Lithotripsy June 2013, NOVOSURE, Colonoscopy approximately 2015, bilateral ureteral stents placed 04/17/22. Past Anesthesia/Blood Transfusion Reactions: No Reported Reaction Smoking Status: Never smoker - Past Family History Father Family Medical History: Cancer, Coronary Artery Disease (CAD) Additional Family Medical History / Comment(s): Colon cancer. Mother Family Medical History: Cancer Additional Family Medical History / Comment(s): AORTIC ANEURYSM. Breast cancer. Brother(s) Family Medical History: Cancer Additional Family Medical History / Comment(s): Multiple myeloma. Medications and Allergies Home Medications Medication Instructions Recorded Confirmed Type Sertraline [Zoloft] 200 mg PO HS 06/18/13 02/04/24 History amLODIPine [Norvasc] 5 mg PO HS 06/18/13 02/04/24 History Simvastatin [Zocor] 40 mg PO HS 90 Days tab 07/01/13 02/04/24 Rx Levothyroxine Sodium [Synthroid] 100 mcg PO HS 03/24/15 02/04/24 History Indapamide [Lozol] 2.5 mg PO HS 02/19/20 02/04/24 History Zolpidem [Ambien] 10 mg PO HS PRN 02/19/20 02/04/24 History traMADol HCL 50 mg PO TID PRN 04/13/22 02/04/24 History Tamsulosin [Flomax] 0.4 mg PO HS 04/26/22 02/04/24 History Ondansetron [Zofran] 4 mg PO Q8HR PRN #10 tab 06/18/23 02/04/24 Rx Allergies Allergy/AdvReac Type Severity Reaction Status Date / Time ciprofloxacin [From Cipro] AdvReac Nausea, Verified 02/04/24 10:52 upset stomach Surgical - Exam Vital Signs Temp Pulse Resp BP Pulse Ox 98.0 F 67 14 150/74 97 02/04/24 10:56 02/04/24 10:56 02/04/24 10:56 02/04/24 10:56 02/04/24 10:56 - General no distress, moderate pain - Eyes normal ocular movement, no pale - ENT normal nares, normal mucosa - Respiratory normal expansion, normal respiratory effort - Abdomen Abdomen: soft, non tender - Psychiatric oriented to time, oriented to person, oriented to place Assessment and Plan Assessment: OR for bilateral ureteroscopy, holmium laser lithotripsy, stone basketing and stent insertion
[2024-02-04] MEDS ORDERED: fentaNYL (PF) 50 MCG/ML 2 ML AMP ONE (12:21)
[2024-02-04] MEDS ORDERED: MIDAZOLAM 2 MG/2 ML VIAL ONE (12:21)
[2024-02-04] MEDS ORDERED: LIDOCAINE 2% (PF) 20 MG/ML 5 ML VIAL ONE (12:21)
[2024-02-04] MEDS ORDERED: PROPOFOL 10 MG/ML 20 ML VIAL IV ONE (12:21)
[2024-02-04] MEDS: LACTATED RINGERS 1,000 ML IV ONE (13:18)
[2024-02-04 13:48] VITALS: TEMP 97
[2024-02-04] MEDS: HYDROmorphone 0.5 MG/0.5 ML SYRINGE IVP PRN (13:49)
[2024-02-04] MEDS: KETOROLAC 15 MG/ML 1 ML VIAL IVP STA (14:32)
--- NOTE | 2024-02-04 14:42 | P.OP ---
Date of Procedure: 02/04/24 Preoperative Diagnosis: Bilateral renal stones Postoperative Diagnosis: Same Procedure(s) Performed: Cystoscopy, bilateral ureteroscopy, holmium lithotripsy, stone basketing and stent insertion Implants: 6 Slovak by 26 cm stent in the bilateral ureter left on a string Anesthesia: VINICIUS Surgeon: Wilian Ryan Estimated Blood Loss (ml): 5 Pathology: other (bilateral renal stone) Condition: stable Disposition: PACU Indications for Procedure: This is a 58-year-old female with history of recurrent kidney stones. He has been having bilateral flank pain, KUB showed evidence of a 5 mm right-sided renal stone and a 7 mm left-sided renal stone, discussed with her the option of a bilateral ureteroscopy with holmium laser, she is aware of the risk which includes but not limited to bleeding, infection, injury to the ureter Operative Findings: 7 mm left lower pole stone, 5 mm right midpole stone Description of Procedure: Patient brought to the operating room, general anesthesia was induced. She was prepped and draped in sterile fashion and placed in a dorsolithotomy position. Cystoscopy fitted with a 21 Slovak sheath was inserted per urethra, cystoscopy showed no abnormality within the bladder. Attention was then carried to the right ureter orifice which was intubated with a sensor wire, the wire was advanced under fluoroscopy into the kidney. Next an 1113 Slovak access sheath was passed over the wire into the proximal ureter. Next a flexible ureteroscope was inserted through the access sheath, renoscopy was performed showed a large stone in the midpole an additional stone in the lower pole, using the holmium laser the stone was fragmented, stone fragments were removed using the stone basket, repeat renoscopy showed no sizable fragments or injury to the kidney. Pullback ureteroscopy was performed showed no injury to the ureter or any ureteral stones, as ureteroscope was withdrawn a sensor wire was advanced through. Next a ureteral stent was passed over the wire, the proximal curl visualized on fluoroscopy and the distal curl was visualized using the cystoscope. The stent was left on a string. Attention was then carried to the left side, the cystoscope was reinserted per urethra and the left ureter orifice was intubated with a wire the wire was advanced under fluoroscopy into the kidney. Next an 1113 Slovak access sheath was passed over the wire and into the proximal ureter. The flexible ureteroscope was inserted through the access sheath, renoscopy was performed which showed a large stone in the lower pole. Using the holmium laser the stone was fragmented, stone fragments were removed using the stone basket. Repeat renoscopy showed no injury to the kidney or any sizable fragments, on fluoroscopy there was no radiopaque density seen. Pullback ureteroscopy was performed showed no injury to the ureter or any ureteral stones. As the ureteroscope was withdrawn a sensor wire was advanced through. A ureteral stent was passed over the wire, the proximal curl was realized on fluoroscopy and the distal curl was visualized using the cystoscope. The stent was left on a string and taped to the patient's left thigh. The bladder was emptied at the end of the case. Patient tolerated procedure well was taken to recovery in stable condition
--- NOTE | 2024-02-04 14:45 | FL ---
EXAMINATION TYPE: FL guidance operating room DATE OF EXAM: 02/04/2024 1:40 PM COMPARISON: Pre Operative Images if available both CT/MRI or plain film CLINICAL INDICATION: Female, 58 years old with history of CYSTO LITHO; TECHNIQUE: FL guidance operating room, multiple fluoroscopic images provided for procedure. Total fluoroscopy time: 51 seconds Total submitted images to PACS: 10 DAP: [id number] mGym2 Gycm2 uGym2 cGycm2 or equivalent. FINDINGS: Fluoroscopic images taken for renal stone. Renal stone identified projecting over the renal sinus. No evidence of pneumoperitoneum. Multilevel degeneration changes of the spine. IMPRESSION: 1. No evidence for intraoperative complication. 2. Please see the operative/procedural note for further details. [facility], Workstation: [facility], 02/04/2024 2:42 PM
[2024-02-04 15:07] VITALS: BP 148/71; PULSE 77; RESP 18
== END 2024-02-04 15:44 | disposition home or self-care (01) ==
LOC: OR 09:55
PROVIDERS: ATTEND Urology
DX: N20.0 Calculus of kidney (principal); E03.9 Hypothyroidism, unspecified; E78.5 Hyperlipidemia, unspecified; I10 Essential (primary) hypertension; Z79.890 Hormone replacement therapy; Z80.0 Family history of malignant neoplasm of digestive organs; Z88.1 Allergy status to other antibiotic agents; Z90.49 Acquired absence of other specified parts of digestive tract; Z79.899 Other long term (current) drug therapy
CPT/HCPCS: 52356; 82365; 74018; C2625; C1769; J2250; J1100; J0690; J2405; J3010; J1885; J2704; J1171; J2003

== ENCOUNTER → 2024-07-31 | Outpatient (CLI) | payer MEDICAID ==
--- NOTE | 2024-07-31 08:28 | XR ---
EXAMINATION TYPE: XR KUB DATE OF EXAM: 07/31/2024 8:19 AM COMPARISON: None. CLINICAL INDICATION: Female, 58 years old with history of R10.9 UNSPECIFIED ABDOMINAL PAIN R31.9 ROSA TURIA,, TECHNIQUE: XR KUB view(s) obtained. FINDINGS: There is a normal bowel gas pattern. Fecal debris is within the colon. Psoas margins are normal. No organomegaly is present. There are some punctate calcifications measuring 3 to 5 cm overlying the bilateral kidneys. Multiple phleboliths within the pelvis. IMPRESSION: 1. Bilateral renal calcifications [facility], , 07/31/2024 8:26 AM
== END | disposition home or self-care (01) ==
LOC: RADXRMAIN 08:01
PROVIDERS: ATTEND Family Medicine
DX: R10.9 Unspecified abdominal pain (principal); N28.89 Other specified disorders of kidney and ureter; R31.9 Hematuria, unspecified
CPT/HCPCS: 74018

== ENCOUNTER → 2024-08-19 | Outpatient (CLI) | payer MEDICAID ==
[2024-08-19 10:29] LABS: Bilirubin,Urine Negative (Negative); Blood,Urine Negative (Negative); Color,Urine Yellow (Yellow); Ketones,Urine Negative (Negative); Nitrite,Urine Negative (Negative); PH, Urine 8.5; Specific Gravity,Urine 1.019 (1.001-1.030); Urobilinogen,Urine 1.0 E.U./DL
[2024-08-19 10:30] LABS: Basophils # (A) 0.03 X 10*3/uL (0.00-0.10); Basophils % (A) 0.6 %; Eosinophils # (A) 0.15 X 10*3/uL (0.04-0.35); Eosinophils % (A) 2.8 %; HCT 40.3 % (37.2-46.3); HGB 13.1 g/dL (12.0-15.0); Immature Grans, Automated 0.40 %; Lymphocytes # (A) 1.73 X 10*3/uL (0.90-5.00); Lymphocytes % (A) 32.4 %; MCH 28.9 pg (27.0-32.0); MCHC 32.5 g/dL (32.0-37.0); MCV 88.8 FL (80.0-97.0); Monocytes # (A) 0.32 X 10*3/uL (0.20-1.00); Monocytes % (A) 6.0 %; NRBC Per 100 WBC 0 X 10*3/uL (0.00-0.01); Neutrophils # (A) 3.09 X 10*3/uL (1.80-7.70); Neutrophils % (A) 57.8 %; Platelet Count 164 X 10*3/uL (140-440); RBC 4.54 X 10*6/uL (4.10-5.20); RDW 13.6 % (11.5-14.5); WBC 5.34 X 10*3/uL (4.50-10.00)
[2024-08-19 10:35] LABS: Bacteria,Urine None Seen (None Seen)
[2024-08-19 10:42] LABS: Anion Gap 12.50 mmol/L (4.00-12.00); BUN/Creat Ratio 15.50 Ratio (12.00-20.00); Blood Urea Nitrogen 12.4 mg/dL (9.0-27.0); Calcium 9.1 mg/dL (8.7-10.3); Carbon Dioxide 25.5 mmol/L (21.6-31.8); Chloride 102 mmol/L (96-109); Glucose 180 mg/dL (70-110); Potassium 3.8 mmol/L (3.5-5.5); Sodium 140 mmol/L (135-145)
== END | disposition home or self-care (01) ==
LOC: LABPAT 07:13
PROVIDERS: ATTEND Urology
DX: Z01.812 Encounter for preprocedural laboratory examination (principal); N20.0 Calculus of kidney
CPT/HCPCS: 80048; 81001; 85025; 87086

== ENCOUNTER 2024-08-25 08:15 | Day surgery (SDC) | payer MEDICAID ==
--- NOTE | 2024-08-18 18:55 | P.HPIHPCON ---
History of Present Illness H&P Date: 08/18/24 Chief Complaint: Bilateral kidney stone This is a 58-year-old female with history of renal tubular acidosis and recurrent kidney stones. She has been experiencing bilateral flank pain, underwent a KUB which showed bilateral 5 mm renal stones. Discussed option of ureteroscopy with holmium laser versus observation. She would like to proceed with bilateral ureteroscopy with holmium laser. She is aware of the risk which include but not limited to bleeding, infection, injury to the ureter Consent for Procedure: I have explained the operation/procedure to the patient, including the risks, benefits, side effects, alternative therapies (including not receiving the proposed treatment or service), the likelihood of the patient achieving his/her goals, and potential recuperation problems for the procedure/sedation/analgesia, as well as any blood products, if indicated. I also explained to the patient the risks, benefits and side effects of the alternatives, as well as the risks related to not receiving the proposed procedure, care, treatment, or services. Past Medical History Past Medical History: Hyperlipidemia, Hypertension, Thyroid Disorder Additional Past Medical History / Comment(s): April 2023 pyelonephritis, kidney infection. Recurrent Urolithiasis. Hypothyroidism. History of Any Multi-Drug Resistant Organisms: None Reported Past Surgical History: Cholecystectomy, Uterine Ablation Additional Past Surgical History / Comment(s): Right ESWL 2011, Left Percutaneous Nephrolithotomy May 2013, Left Ureteroscopy with Holmium Laser Lithotripsy June 2013, NOVOSURE, Colonoscopy approximately 2015, bilateral ureteral stents placed 04/17/22. Past Anesthesia/Blood Transfusion Reactions: No Reported Reaction Smoking Status: Never smoker - Past Family History Father Family Medical History: Cancer, Coronary Artery Disease (CAD) Additional Family Medical History / Comment(s): Colon cancer. Mother Family Medical History: Cancer Additional Family Medical History / Comment(s): AORTIC ANEURYSM. Breast cancer. Brother(s) Family Medical History: Cancer Additional Family Medical History / Comment(s): Multiple myeloma. Medications and Allergies Home Medications Medication Instructions Recorded Confirmed Type Sertraline [Zoloft] 200 mg PO HS 06/18/13 02/04/24 History amLODIPine [Norvasc] 5 mg PO HS 06/18/13 02/04/24 History Simvastatin [Zocor] 40 mg PO HS 90 Days tab 07/01/13 02/04/24 Rx Levothyroxine Sodium [Synthroid] 100 mcg PO HS 03/24/15 02/04/24 History Indapamide [Lozol] 2.5 mg PO HS 02/19/20 02/04/24 History Zolpidem [Ambien] 10 mg PO HS PRN 02/19/20 02/04/24 History traMADol HCL 50 mg PO TID PRN 04/13/22 02/04/24 History Tamsulosin [Flomax] 0.4 mg PO HS 04/26/22 02/04/24 History Ondansetron [Zofran] 4 mg PO Q8HR PRN #10 tab 06/18/23 02/04/24 Rx Cephalexin [Keflex] 500 mg PO Q8HR #15 cap 02/04/24 Rx Ketorolac [Toradol] 10 mg PO Q6HR #15 tab 02/04/24 Rx Allergies Allergy/AdvReac Type Severity Reaction Status Date / Time ciprofloxacin [From Cipro] AdvReac Nausea, Verified 02/04/24 10:52 upset stomach Surgical - Exam - General no distress, moderate pain - Eyes normal ocular movement, no pale - ENT normal nares, normal mucosa - Respiratory normal expansion, normal respiratory effort Assessment and Plan Assessment: OR for bilateral ureteroscopy, holmium laser lithotripsy, stone basketing, possible stent insertion
[2024-08-20 15:27] VITALS: BMI 28.5
[~2024-08-25 08:15] MED LIST changes: -DEXAMETHASONE SOD PHOSPHATE 4 MG/ML 1 ML VIAL IV ONE; -LACTATED RINGERS 1,000 ML IV SCH; -LIDOCAINE 1% (10MG/ML) FOR IV START INTRADERMA PRN; +MIDAZOLAM 2 MG/2 ML VIAL IV PRN; -ONDANSETRON 4 MG/2 ML VIAL IVP PRN
--- NOTE | 2024-08-25 08:43 | XR ---
EXAMINATION TYPE: XR KUB DATE OF EXAM: 08/25/2024 COMPARISON: KUB radiograph 07/31/2024, CT abdomen and pelvis 06/14/2023 HISTORY: Kidney stones TECHNIQUE: Single supine KUB image of the abdomen is obtained FINDINGS: Small bowel demonstrates no evidence for dilatation or air fluid levels. Gas and fecal material is seen in non-distended colon. No convincing evidence for pneumoperitoneum. Similar right renal 2 mm calculus. No definitive left renal calculus. Similar pelvic phleboliths. Cho lecystectomy clips in right upper quadrant. The lung bases are clear. The osseous structures are intact. IMPRESSION: Right renal calculus. No definitive left renal calculus. [facility], , 08/25/2024 8:40 AM
[2024-08-25 08:45] VITALS: TEMP 97.4
[2024-08-25] MEDS: IV FLUID CONTINUATION 1,000 ML IV ONE (08:59)
[2024-08-25] MEDS: LACTATED RINGERS 1,000 ML IV SCH (09:01)
[2024-08-25] MEDS: SCOPOLAMINE 1 MG/72 HR PATCH TRANSDERM ONE (09:06)
[2024-08-25] MEDS: DEXAMETHASONE SOD PHOSPHATE 4 MG/ML 1 ML VIAL IV ONE (09:07)
[2024-08-25] MEDS: ONDANSETRON 4 MG/2 ML VIAL IVP ONE (09:07)
[2024-08-25] MEDS ORDERED: fentaNYL (PF) 50 MCG/ML 2 ML AMP ONE (09:09)
[2024-08-25] MEDS ORDERED: SUCCINYLCHOLINE CHLORIDE 200 MG/10 ML VIAL IV ONE (09:09)
[2024-08-25] MEDS ORDERED: LIDOCAINE 1% INJ 10MG/ML (20 ML MDV) ONE (09:09)
[2024-08-25] MEDS ORDERED: PROPOFOL 10 MG/ML 20 ML VIAL IV ONE (09:09)
[2024-08-25] MEDS ORDERED: MIDAZOLAM 2 MG/2 ML VIAL ONE (09:09)
--- NOTE | 2024-08-25 10:43 | P.OP ---
Date of Procedure: 08/25/24 Preoperative Diagnosis: Bilateral renal stones Postoperative Diagnosis: Same Procedure(s) Performed: Cystoscopy bilateral ureteroscopy, holmium laser lithotripsy, stone basketing and stent insertion Implants: 6 Palauan by 24 cm stents left on a string and taped to the patient's thigh Anesthesia: VINICIUS Surgeon: Wilian Ryan Estimated Blood Loss (ml): 1 Pathology: other (Bilateral kidney stones) Condition: stable Disposition: PACU Indications for Procedure: This is a 58-year-old female with history of renal tubular acidosis and recurrent kidney stones. She has been experiencing bilateral flank pain, underwent a KUB which showed bilateral 5 mm renal stones. Discussed option of ureteroscopy with holmium laser versus observation. She would like to proceed with bilateral ureteroscopy with holmium laser. She is aware of the risk which include but not limited to bleeding, infection, injury to the ureter Operative Findings: Multiple bilateral small kidney stones Description of Procedure: Patient brought to the operating, general anesthesia was induced. She was prepped and draped in sterile fashion placed in dorsolithotomy position. Cystoscopy fitted with a 21 Palauan sheath was inserted per urethra, cystoscopy was performed showed no abnormality within the bladder. Attention was then carried to the right ureter orifice which was intubated with a sensor wire, the wire was advanced under fluoroscopy into the kidney. Under fluoroscopy an 1113 Palauan access sheath was passed over the wire into the proximal ureter. The flexible ureteroscope was inserted through the access sheath, renoscopy was performed showed multiple small stones throughout the kidney, of note some of the stones were adherent to the mucosa. Using the holmium laser the stones were fragmented, sizable stone fragments were removed using the stone basket. Repeat renoscopy showed no sizable fragments or injury to the kidney. Pullback ureteroscopy was performed showed no injury to the ureter or any ureteral stones. As the ureteroscope was withdrawn a sensor wire was advanced through. Next a ureteral stent was passed over the wire, the proximal curl was visualized on fluoroscopy and the distal curl was was visualized using cystoscope. The stent was left on a string Attention was then carried to the left ureteral orifice, orifice which was intubated with a sensor wire, the wire was advanced under fluoroscopy into the kidney. Under fluoroscopy an 1113 Palauan access sheath was passed over the wire into the proximal ureter. The flexibile ureteroscope was inserted through the access sheath, renoscopy was performed showed multiple small stones throughout the kidney, of note some of the stones were adherent to the mucosa. Using the holmium laser the stones were fragmented, sizable stone fragments were removed using the stone basket. Repeat renoscopy showed no sizable fragments or injury to the kidney. Pullback ureteroscopy was performed showed no injury to the ureter or any ureteral stones. As the ureteroscope was withdrawn a sensor wire was advanced through. Next a ureteral stent was passed over the wire, the proximal curl was visualized on fluoroscopy and the distal curl was was visualized using cystoscope. The stent was left on a string. Bladder was emptied at the end the case. Patient tolerated the procedure well was taken to recovery in stable condition
[2024-08-25] MEDS: HYDROmorphone 0.5 MG/0.5 ML SYRINGE IVP PRN (10:47)
[2024-08-25] MEDS: KETOROLAC 15 MG/ML 1 ML VIAL IVP STA (10:51)
--- NOTE | 2024-08-25 11:07 | FL ---
EXAMINATION TYPE: FL guidance operating room Intraoperative/procedural fluoroscopic services were pro vided. CLINICAL INDICATION:Female, 58 years old with history of cystoscopy lithotripsy; , [facility] FINDINGS: Fluoroscopic images for bilateral cystoscopy lithotripsy. Bilateral ureteral stents placed. No radiog raphic evidence for complication. Total fluoroscopy time is 15.4 seconds. DAP: [id number] mGym2 Please see the operative/procedural note for further details. [facility], , 08/25/2024 11:04 AM
[2024-08-25 12:11] VITALS: BP 139/85; PULSE 68; RESP 16
== END 2024-08-25 12:23 | disposition home or self-care (01) ==
LOC: OR 08:15
PROVIDERS: ATTEND Urology
DX: N20.0 Calculus of kidney (principal); E03.9 Hypothyroidism, unspecified; E78.5 Hyperlipidemia, unspecified; I10 Essential (primary) hypertension; Z79.890 Hormone replacement therapy; Z80.0 Family history of malignant neoplasm of digestive organs; Z88.1 Allergy status to other antibiotic agents; Z90.49 Acquired absence of other specified parts of digestive tract; Z79.899 Other long term (current) drug therapy
CPT/HCPCS: 52356; 81025; 82365; 74018; C2625; C1769 ×2; J2250; J0330; J1100; J0690; J2405; J2003; J3010; J1885; J2704; J1171